=== PATIENT | female | born 1985 | race African-American/Black ===

== ENCOUNTER → 2018-04-05 18:49 | Outpatient (CLI) | payer OTHER, MEDICAID, SELFPAY ==
--- NOTE | 2018-04-05 18:56 | DI.RAD.S_ITS ---
PROCEDURE: XR KNEE RT 3V INDICATIONS: 32 year-old female with right knee pain. TECHNIQUE: 3 views of the knee were acquired. COMPARISON: [facility], , KNEE 3V RIGHT, 11/07/2015, 20:50. FINDINGS: Bones: No fractures or dislocations. There is mild medial knee joint degenerative narrowing as before. No suspicious bony lesions. Soft tissues: There is large joint effusion. 2.3 cm irregular posterior intra-articular body again noted. IMPRESSION: 1. New large right knee joint effusion may indicate soft tissue injury in the appropriate clinical setting. 2. Mild medial knee joint degeneration as before, as well as 2.3 cm posterior calcified intra-articular body. Dictated by: Josemanuel Martin M.D. on 04/06/2018 at 7:41 Approved by: Josemanuel Martin M.D. on 04/06/2018 at 7:43
== END ==
PROVIDERS: Visit Provider Physician Assistant
DX: M25.461 Effusion, right knee (principal); M17.11 Unilateral primary osteoarthritis, right knee; M25.561 Pain in right knee
CPT/HCPCS: 73562

== ENCOUNTER 2018-08-19 02:32 | Emergency (ER) | payer OTHER, MEDICAID, SELFPAY ==
[2018-08-19 02:44] VITALS: BP 122/82; PULSE 86; RESP 18; TEMP 36.9; O2SAT 99; BMI 56.9
--- NOTE | 2018-08-19 02:51 | PC.NURSE ---
She told admitting her l foot was numb,in room she denied numbness in her feet now.She has strong bilateral pedal pulses.
[2018-08-19] MEDS: TRAMADOL 50 MG TABLET 100 MG PO (03:02)
[2018-08-19] MEDS: CYCLOBENZAPRINE 10 MG TABLET PO (03:06)
--- NOTE | 2018-08-19 03:24 | ED_ITS ---
HPI - Back Pain/Injury General Chief Complaint: Back Pain/Injury Stated Complaint: back pain, left foot no feeling Time Seen by Provider: 08/19/18 02:42 Source: patient Mode of arrival: wheelchair Limitations: no limitations History of Present Illness HPI Narrative: Patient is a obese 32-year-old female who presents with back pain. She denies any injury. States that the she was cleaning up before going to bed woke up with back pain. She did take a 1000 mg of naproxen prior to going to bed who is she also had some numbness tingling down her right foot but is now resolved. She is ambulatory but it is painful. She has no changes in her bowel or bladder habits. She denies any really should the pain around to her abdomen or weakness. Onset (ago): hour(s) Duration: constant Location: lumbar spine Severity: severe Quality: burning Radiation: none Treatments prior to arrival: NSAIDS Related Data Home Medications Medication Instructions Recorded Confirmed naproxen sodium 440 mg PO PRN PRN #0 12/27/17 06/17/18 Previous Rx's Medication Instructions Recorded ibuprofen 800 mg tablet 800 mg PO TID #20 tab 06/03/18 cyclobenzaprine 5 mg PO TID PRN #10 tab 08/19/18 ibuprofen 800 mg PO Q8H PRN #20 tab 08/19/18 tramadol 50 mg PO Q6H PRN #14 tab 08/19/18 Allergies Allergy/AdvReac Type Severity Reaction Status Date / Time codeine [CODEINE] Allergy Unknown Verified 06/17/18 16:14 latex [LATEX] Allergy Unknown Verified 06/17/18 16:14 Review of Systems Review of Systems GENERAL: Denies chills,fever HEENT: Denies throat pain RESPIRATORY: Denies dyspnea, cough, wheezing CARDIOVASCULAR: Denies chest pain, palpitations GASTROINTESTINAL: Denies nausea, vomiting MUSCULOSKELETAL: See HPI SKIN: No rash, no laceration, no pruritus NEUROLOGIC: Denies weakness, dizziness, headache, numbness 8 point review of systems is negative except for those stated above and HPI PFSH Social History Smoking Status: Never smoker Exam Initial Vital Signs Initial Vital Signs: Vital Signs Temperature 98.5 F 08/19/18 02:44 Pulse Rate 86 08/19/18 02:44 Respiratory Rate 18 08/19/18 02:44 Blood Pressure 122/82 08/19/18 02:44 Pulse Oximetry 99 08/19/18 02:44 Const General: cooperative and in distress (In pain) Nutritional Appearance: obese Orientation: alert, awake and oriented x3 Eyes General: appearance normal, both eyes and all related structures Chest Chest: normal inspection of the chest Resp Effort & Inspection: normal respiratory effort and able to speak in complete sentences Cardio Rhythm: regular rhythm Heart Sounds: S1 normal and S2 normal Back/Spine/Pelvis Thoracic/Lumbar Spine: thoracic and lumbar spine normal to inspection and pain with thoraco-lumbar ROM Neuro General: awake and oriented x3 Speech: speech normal Motor: muscle tone normal throughout Sensory Exam: no sensory deficits noted Extrem General: normal to inspection and full ROM Course Orders Ordered: Discontinued Medications Cyclobenzaprine HCl (Flexeril) 5 mg PO NOW ONE Stop: 08/19/18 02:59 Last Admin: 08/19/18 03:06 Dose: Cyclobenzaprine HCl (Flexeril) 10 mg PO NOW ONE Stop: 08/19/18 03:06 Last Admin: 08/19/18 03:06 Dose: 10 mg Cyclobenzaprine HCl (Flexeril 10 Mg Prepack) 1 bottle MISC SEEINSTR ONE Stop: 08/19/18 03:41 Last Admin: 08/19/18 03:41 Dose: 1 bottle Tramadol HCl (Ultram) 100 mg PO NOW ONE Stop: 08/19/18 02:59 Last Admin: 08/19/18 03:02 Dose: 100 mg Tramadol HCl (Ultram 50mg Prepack) 1 bottle MISC SEEINSTR ONE Stop: 08/19/18 03:41 Last Admin: 08/19/18 03:41 Dose: 1 bottle Vital Signs - 8 hr 08/19/18 02:44 08/19/18 03:49 Temperature 98.5 F Pulse Rate 86 80 Respiratory Rate 18 16 Blood Pressure 122/82 125/79 Pulse Oximetry 99 98 Discharge Plan Departure Patient Disposition: Home Clinical Impression: Strain of lumbar region Discharge Date/Time: 08/19/18 03:50 Interventions: ED Discharge Assessment Last Done: 08/19/18 03:49 Instructions: DI for Back Spasm, DI for Back Strain or Sprain Activity Restrictions/Additional Instructions: *You have been diagnosed with acute back strain *What to do: Increase activity as tolerated, light activity is encouraged *Continue to take medications as directed: Faxed to [facility] in [place] Motrin 600-800 mg every 6-8 hours as needed for pain Tramadol 1-2 tablets every 6 hr if needed for severe pain Flexeril 1 tablet every 8 hr if needed for muscle spasm *Follow up with your primary care provider in 2-3 days *Return to ER if you should have numbness tingling, weakness in lower extremities loss of urine or stool, or any new, worsening or concerning symptoms Prescriptions: New ibuprofen 800 mg tablet 800 mg PO Q8H PRN (Reason: pain) Qty: 20 RF: 0 tramadol 50 mg tablet 50 mg PO Q6H PRN (Reason: pain) Qty: 14 RF: 0 cyclobenzaprine 5 mg tablet 5 mg PO TID PRN (Reason: muscle spasm) Qty: 10 RF: 0 No Action naproxen sodium 220 MG tablet 440 mg PO PRN PRN (Reason: Pain, Moderate) Qty: 0 RF: 0 ibuprofen 800 mg tablet 800 mg PO TID Qty: 20 RF: 0 Referrals: [facility] [Provider Group] [facility] [Provider Group] [facility] [Outside] Stand Alone Forms: Work/School Restrictions
[2018-08-19] MEDS: CYCLOBENZAPRINE 10 MG PREPACK 1 BOTTLE MISC (03:41)
[2018-08-19] MEDS: TRAMADOL 50 MG PREPACK 1 BOTTLE MISC (03:41)
[2018-08-19 03:49] VITALS: BP 125/79; PULSE 80; RESP 16; O2SAT 98
== END 2018-08-19 03:50 | disposition home or self-care (01) ==
PROVIDERS: Emergency Provider Emergency Medicine
DX: S39.012A Strain of muscle, fascia and tendon of lower back, initial encounter (principal)
CPT/HCPCS: 99282; 99283

== ENCOUNTER → 2018-10-27 20:21 | Outpatient (CLI) | payer OTHER, MEDICAID, SELFPAY | PROVIDERS: Visit Provider Physician Assistant | DX: J02.9 Acute pharyngitis, unspecified (principal) | CPT/HCPCS: 87070 ==

== ENCOUNTER 2019-02-22 09:00 | Emergency (ER) | payer OTHER, MEDICAID, SELFPAY ==
[2019-02-22 09:08] VITALS: BP 153/98; PULSE 86; RESP 18; TEMP 37.1; O2SAT 98; BMI 56.9
--- NOTE | 2019-02-22 09:23 | ED.ALLEREA ---
HPI - Allergic Reaction General Chief complaint: Allergic Reaction Stated complaint: ALLERGIC REACTION Time Seen by Provider: 02/22/19 09:23 Source: patient Mode of arrival: ambulatory Limitations: no limitations History of Present Illness HPI narrative: The patient is a 33-year-old female who presents with possible allergic reaction. She states she was eating hominis yesterday which she eats all the time. She then started noticing that her voice was going away. She is itching all over but no hives. She does have seasonal allergies he was taking some wxyl-yix-dpprlna allergy medicine but is no longer taking. She has no trouble swallowing her secretions. She has no fever she feels like her face and arms are swollen. No erythema MD complaint: allergic reaction and facial swelling Symptoms: itching and facial swelling (Per patient not appreciated by me) Related Data Allergies Allergy/AdvReac Type Severity Reaction Status Date / Time codeine [CODEINE] Allergy Severe Nausea/ Verified 02/22/19 09:08 vomiting latex [LATEX] Allergy Mild Rash Verified 02/22/19 09:08 Review of Systems Review of Systems ROS Unobtainable: All systems reviewed & are unremarkable except as noted in HPI and below Constitutional Denies chills, Denies fever(s), Denies lethargy and Denies weakness Eyes Reports itchy eyes ENT Ears, Nose, Mouth, and Throat: Reports change in voice, Denies neck pain and Denies sore throat Cardiovascular Denies chest pain, Denies irregular heart rhythm, Denies lightheadedness, Denies palpitations, Denies dyspnea, Denies dyspnea on exertion and Denies orthopnea Respiratory Denies cough, Denies dyspnea, Denies dyspnea on exertion and Denies wheezing Gastrointestinal Gastrointestinal: Denies abdominal pain, Denies change in bowel habits, Denies diarrhea, Denies nausea and Denies vomiting Musculoskeletal Denies neck pain Integumentary/Breasts Denies pruritus, Denies erythema, Denies rash and Denies wounds Neurologic Denies weakness Endocrine Denies palpitations Allergic/Immunologic Reports itchy eyes and Denies wheezing [facility] Medical History Right knee pain (Chronic) Eczema (Chronic Unknown) Atrial fibrillation (Chronic ~2000) Tendonitis (Resolved 03/2017) Surgical History Cyst (Resolved 03/2017) Family History Brother Afib Father Age: 69 Afib Social History Smoking Status: Never smoker Family History Brother Afib Father Age: 69 Afib Social History Smoking Status: Never smoker Exam Initial Vital Signs Initial Vital Signs: Vital Signs Temperature 98.7 F 02/22/19 09:08 Pulse Rate 86 02/22/19 09:08 Respiratory Rate 18 02/22/19 09:08 Blood Pressure 153/98 H 02/22/19 09:08 Pulse Oximetry 98 02/22/19 09:08 GENERAL: Overweight female alert no acute distress HEENT: Head atraumatic,EOMI, pupils reactive CARDIOVASCULAR: Regular rate and rhythm without murmurs, rubs or gallops. RESPIRATORY: Breath sounds equal bilaterally, no wheezes rales or rhonchi. ABDOMEN: Soft, nontender. Normoactive bowel sounds all 4 quadrants. No guarding or rebound. EXTREMITIES: Normal range of motion, no clubbing or edema. Neurovascularly intact NEUROLOGICAL: Alert and oriented x4.Normal gait and speech. Cranial nerves II through XII grossly intact. SKIN: Warm, dry, no laceration, no petechiae, no rashes or lesions. no urticaria, no hives no rash Course Orders Ordered: Discontinued Medications Prednisone (Deltasone) 40 mg PO NOW ONE Stop: 02/22/19 09:35 Last Admin: 02/22/19 09:36 Dose: 40 mg Vital Signs - 8 hr 02/22/19 09:08 02/22/19 10:28 Temperature 98.7 F Pulse Rate 86 64 Respiratory Rate 18 18 Blood Pressure 153/98 H Blood Pressure [Left Arm] 146/97 H Pulse Oximetry 98 100 MDM - Allergic Reaction MDM Narrative Medical decision making narrative: Patient has no signs of anaphylaxis. Really no rash. I this is seasonal allergies. She is managing her own secretions no stridor may be some possible laryngitis. But really appears in no respiratory distress. she is given 1 dose of prednisone and recommend she take qzyl-obt-ihwdkvq allergy medication daily and Benadryl as needed. Discharge Plan Departure Patient Disposition: Home Clinical Impression: Seasonal allergic reaction Discharge Date/Time: 02/22/19 10:29 Interventions: ED Discharge Assessment Last Done: 02/22/19 10:29 Instructions: DI for General Allergic Reactions Activity Restrictions/Additional Instructions: *You have been diagnosed with seasonal allergic reaction *What to do: At this time no sign of severe reaction . At this time I do not think you need antibiotics *Continue to take medications as directed Lofr-tld-gznqclf allergy medicine once daily or as prescribed Benadryl 25-50 mg every 6 hours if needed for severe itching *Follow up with your primary care provider in 2-3 days *Return to ER if you should have increased difficulty breathing or rash, facial swelling or any new, worsening or concerning symptoms Referrals: [facility] [Provider Group] [facility] [Provider Group] [facility] [Provider Group] Stand Alone Forms: Work Release Note
[2019-02-22] MEDS: predniSONE 20 MG TABLET 40 MG PO (09:36)
--- NOTE | 2019-02-22 09:45 | ED_ITS ---
HPI - Allergic Reaction General Chief complaint: Allergic Reaction Stated complaint: ALLERGIC REACTION Time Seen by Provider: 02/22/19 09:23 Source: patient Mode of arrival: ambulatory Limitations: no limitations History of Present Illness HPI narrative: The patient is a 33-year-old female who presents with possible allergic reaction. She states she was eating hominis yesterday which she eats all the time. She then started noticing that her voice was going away. She is itching all over but no hives. She does have seasonal allergies he was taking some zxhs-mjj-fsvrsoq allergy medicine but is no longer taking. She has no trouble swallowing her secretions. She has no fever she feels like her face and arms are swollen. No erythema MD complaint: allergic reaction and facial swelling Symptoms: itching and facial swelling (Per patient not appreciated by me) Related Data Allergies Allergy/AdvReac Type Severity Reaction Status Date / Time codeine [CODEINE] Allergy Severe Nausea/ Verified 02/22/19 09:08 vomiting latex [LATEX] Allergy Mild Rash Verified 02/22/19 09:08 Review of Systems Review of Systems ROS Unobtainable: All systems reviewed & are unremarkable except as noted in HPI and below Constitutional Denies chills, Denies fever(s), Denies lethargy and Denies weakness Eyes Reports itchy eyes ENT Ears, Nose, Mouth, and Throat: Reports change in voice, Denies neck pain and Denies sore throat Cardiovascular Denies chest pain, Denies irregular heart rhythm, Denies lightheadedness, Denies palpitations, Denies dyspnea, Denies dyspnea on exertion and Denies orthopnea Respiratory Denies cough, Denies dyspnea, Denies dyspnea on exertion and Denies wheezing Gastrointestinal Gastrointestinal: Denies abdominal pain, Denies change in bowel habits, Denies diarrhea, Denies nausea and Denies vomiting Musculoskeletal Denies neck pain Integumentary/Breasts Denies pruritus, Denies erythema, Denies rash and Denies wounds Neurologic Denies weakness Endocrine Denies palpitations Allergic/Immunologic Reports itchy eyes and Denies wheezing [facility] Medical History Right knee pain (Chronic) Eczema (Chronic Unknown) Atrial fibrillation (Chronic ~2000) Tendonitis (Resolved 03/2017) Surgical History Cyst (Resolved 03/2017) Family History Brother Afib Father Age: 69 Afib Social History Smoking Status: Never smoker Family History Brother Afib Father Age: 69 Afib Social History Smoking Status: Never smoker Exam Initial Vital Signs Initial Vital Signs: Vital Signs Temperature 98.7 F 02/22/19 09:08 Pulse Rate 86 02/22/19 09:08 Respiratory Rate 18 02/22/19 09:08 Blood Pressure 153/98 H 02/22/19 09:08 Pulse Oximetry 98 02/22/19 09:08 GENERAL: Overweight female alert no acute distress HEENT: Head atraumatic,EOMI, pupils reactive CARDIOVASCULAR: Regular rate and rhythm without murmurs, rubs or gallops. RESPIRATORY: Breath sounds equal bilaterally, no wheezes rales or rhonchi. ABDOMEN: Soft, nontender. Normoactive bowel sounds all 4 quadrants. No guarding or rebound. EXTREMITIES: Normal range of motion, no clubbing or edema. Neurovascularly intact NEUROLOGICAL: Alert and oriented x4.Normal gait and speech. Cranial nerves II through XII grossly intact. SKIN: Warm, dry, no laceration, no petechiae, no rashes or lesions. no urticaria, no hives no rash Course Orders Ordered: Discontinued Medications Prednisone (Deltasone) 40 mg PO NOW ONE Stop: 02/22/19 09:35 Last Admin: 02/22/19 09:36 Dose: 40 mg Vital Signs - 8 hr 02/22/19 09:08 02/22/19 10:28 Temperature 98.7 F Pulse Rate 86 64 Respiratory Rate 18 18 Blood Pressure 153/98 H Blood Pressure [Left Arm] 146/97 H Pulse Oximetry 98 100 MDM - Allergic Reaction MDM Narrative Medical decision making narrative: Patient has no signs of anaphylaxis. Really no rash. I this is seasonal allergies. She is managing her own secretions no stridor may be some possible laryngitis. But really appears in no respiratory distress. she is given 1 dose of prednisone and recommend she take ywap-vih-hwnvlkb allergy medication daily and Benadryl as needed. Discharge Plan Departure Patient Disposition: Home Clinical Impression: Seasonal allergic reaction Discharge Date/Time: 02/22/19 10:29 Interventions: ED Discharge Assessment Last Done: 02/22/19 10:29 Instructions: DI for General Allergic Reactions Activity Restrictions/Additional Instructions: *You have been diagnosed with seasonal allergic reaction *What to do: At this time no sign of severe reaction . At this time I do not think you need antibiotics *Continue to take medications as directed Rmhv-mjv-qggnlgi allergy medicine once daily or as prescribed Benadryl 25-50 mg every 6 hours if needed for severe itching *Follow up with your primary care provider in 2-3 days *Return to ER if you should have increased difficulty breathing or rash, facial swelling or any new, worsening or concerning symptoms Referrals: [facility] [Provider Group] [facility] [Provider Group] [facility] [Provider Group] Stand Alone Forms: Work Release Note
[2019-02-22 10:28] VITALS: BP 146/97; PULSE 64; RESP 18; O2SAT 100
== END 2019-02-22 10:29 | disposition home or self-care (01) ==
PROVIDERS: Emergency Provider Emergency Medicine
DX: J30.2 Other seasonal allergic rhinitis (principal)
CPT/HCPCS: 99282; 99283

== ENCOUNTER 2019-05-29 16:14 | Emergency (ER) | payer OTHER, MEDICAID, SELFPAY ==
[2019-05-29 16:25] VITALS: BP 139/95; PULSE 79; RESP 16; TEMP 36.6; O2SAT 98
--- NOTE | 2019-05-29 16:52 | ED_ITS ---
HPI - Dizziness General Chief Complaint: Syncope Stated Complaint: Passed out last night, low blodd sugar, strep thro Time Seen by Provider: 05/29/19 16:38 Source: patient Mode of arrival: ambulatory Limitations: no limitations History of Present Illness HPI Narrative: 33-year-old female nonsmoker with history of AFib presents with a chief complaint of a near syncopal episode last night. Patient is a nonsmoker and denies any vomiting or diarrhea. She started the youssef toe diet about 3 weeks ago and thinks she has strep pharyngitis as evidence by difficulty swallowing for the past few days. She states that she has been on this diet had trouble eating and drinking and works out heavily each night. After her workup last night she felt dizzy and lightheaded and had this near syncopal episode. She denies any fever chills and is largely at her baseline now MD complaint: dizziness, lightheadedness and near syncope Onset (ago): day(s) Timing: gradual onset Description: lightheadedness and near-syncope History of similar episodes: No History of trauma: No Severity: mild Relieving factors: nothing Related Data Home Medications Medication Instructions Recorded Confirmed ibuprofen 1 dose PO PRN PRN 05/29/19 05/29/19 Previous Rx's Medication Instructions Recorded albuterol sulfate HFA 90 1 inh INHALATION Q4-6H PRN #18 gram 03/15/19 mcg/actuation aerosol inhaler amoxicillin-pot clavulanate 1 tab PO BID #20 tab 05/29/19 [Augmentin] ibuprofen 600 mg PO TID-QID PRN #20 tab 05/29/19 Allergies Allergy/AdvReac Type Severity Reaction Status Date / Time codeine [CODEINE] Allergy Severe Nausea/ Verified 05/29/19 16:28 vomiting latex [LATEX] Allergy Mild Rash Verified 05/29/19 16:28 narcotics AdvReac Severe Vomiting Uncoded 05/29/19 17:00 Review of Systems Constitutional Denies chills, Denies fever(s), Denies lethargy and Denies weakness Eyes Denies change in vision, Denies eye discharge, Denies irritation and Denies loss of vision ENT Ears, Nose, Mouth, and Throat: Denies change in voice, Denies neck pain and Denies sore throat Cardiovascular Denies chest pain, Reports syncope, Denies irregular heart rhythm, Denies lightheadedness, Denies palpitations, Denies dyspnea, Denies dyspnea on exertion and Denies orthopnea Respiratory Denies cough, Denies dyspnea, Denies dyspnea on exertion and Denies wheezing Gastrointestinal Gastrointestinal: Denies abdominal pain, Denies change in bowel habits, Denies diarrhea, Denies nausea and Denies vomiting Genitourinary Denies hematuria, Denies flank pain, Denies urinary incontinence and Denies urinary urgency Musculoskeletal Denies neck pain Integumentary/Breasts Denies pruritus, Denies erythema, Denies rash and Denies wounds Neurologic Denies confusion, Reports syncope, Denies loss of vision and Denies weakness Psychiatric Denies anxiety, Denies confusion, Denies depression, Denies homicidal ideation and Denies suicidal ideation Endocrine Denies palpitations Hematologic/Lymphatic Denies easy bruising Allergic/Immunologic Denies wheezing [facility] Medical History Right knee pain (Chronic) Eczema (Chronic Unknown) Atrial fibrillation (Chronic ~2000) Tendonitis (Resolved 03/2017) Surgical History Cyst (Resolved 03/2017) Family History Brother Afib Father Age: 69 Afib Social History Smoking Status: Never smoker Family History Brother Afib Father Age: 69 Afib Social History Smoking Status: Never smoker Exam Narrative Exam Narrative: GENERAL: 33-year-old female is anxious but in no obvious or significant distress HEAD: Atraumatic. Normocephalic. No temporal or scalp tenderness. EYES: Pupils equal round and reactive. Extraocular motions intact. No scleral icterus. No injection or drainage. ENT: Nose without bleeding, purulent drainage or septal hematoma. Posterior pharynx and tonsils are erythematous and some exudate on the left tonsil NECK: Trachea midline. Left anterior lymphadenopathy. Supple, nontender, no meningeal signs. CARDIOVASCULAR: Regular rate and rhythm without murmurs, gallops, or rubs. RESPIRATORY: Clear to auscultation. Breath sounds equal bilaterally. No wheezes, rales, or rhonchi. GASTROINTESTINAL: Abdomen soft, non-tender, nondistended. No hepato- splenomegaly, or palpable masses. No guarding. EXTREMITIES: No clubbing, cyanosis, or edema. No joint tenderness, effusion, or edema noted. BACK: Nontender without deformity or crepitance. No flank tenderness. NEURO: AOx3. SKIN: No rash or erythema. Initial Vital Signs Initial Vital Signs: Vital Signs Temperature 97.9 F 05/29/19 16:25 Pulse Rate 79 05/29/19 16:25 Respiratory Rate 16 05/29/19 16:25 Blood Pressure 139/95 H 05/29/19 16:25 Pulse Oximetry 98 05/29/19 16:25 Course Orders Ordered: Discontinued Medications Sodium Chloride (Normal Saline 0.9%) 1,000 mls @ 1,000 mls/hr IV BOLUS ONE Stop: 05/29/19 17:49 Last Infusion: 05/29/19 18:01 Dose: 0 mls/hr Admin: 05/29/19 16:58 Dose: 1,000 mls/hr Reevaluation(s) Reevaluation #1: Patient feels much better after the above-stated therapies Vital Signs - 8 hr 05/29/19 16:25 Temperature 97.9 F Pulse Rate 79 Respiratory Rate 16 Blood Pressure 139/95 H Pulse Oximetry 98 MDM - Dizziness Lab Data Result diagrams: 05/29/19 16:50 05/29/19 16:50 Lab Results 05/29/19 05/29/19 Range/Units 16:50 16:50 WBC 4.1 L (4.5-11.0) X10^3/uL RBC 5.06 (4.0-5.2) X10^6/uL Hgb 13.7 (12.0-16.0) g/dL Hct 41.6 (36-46) % MCV 82.3 (80-100) fL MCH 27.1 (26-34) PG MCHC 32.9 (30-36) % RDW 15.3 H (11.6-14.8) % Plt Count 174 (150-400) X10^3/uL Neut % (Auto) 61.7 (50-75) % Lymph % (Auto) 29.6 (25-40) % Harmon % (Auto) 7.0 (3-14) % Eos % (Auto) 0.9 L (2-4) % Baso % (Auto) 0.8 (0-2) % Neut # (Auto) 2600 (5084-2709) /uL Lymph # (Auto) 1200 (2412-3118) /uL Harmon # (Auto) 300 (0-900) /uL Eos # (Auto) 0 (0-450) /uL Baso # (Auto) 0 (0-100) /uL Sodium 139 (137-145) mmol/L Potassium 4.0 (3.4-5.1) mmol/L Chloride 105 (98-107) mmol/L Carbon Dioxide 25 (22-32) mmol/L BUN 10 (7-17) mg/dL Creatinine 0.80 (0.52-1.04) mg/dL Estimated GFR > 60.0 (>60) mL/min BUN/Creatinine Ratio 12.5 (6-22) Glucose 89 (70-100) mg/dL Calcium 9.2 (8.4-10.2) mg/dL MDM Narrative Medical decision making narrative: Patient with near syncope after diet change, heavy exertional workouts, and a sore throat improves tremendously with fluids. She has sore throat for 4 days, exudate on her left tonsil, subjective fever no cough and anterior lymphadenopathy without high likelihood of strep. Our strep she did not work though we attempted it. Given high likelihood of strep patient was treated despite no confirmatory test. Patient had return precautions given and questions answered to her apparent satisfaction Discharge Plan Departure Patient Disposition: Home Clinical Impression: Acute dehydration, Near syncope, Acute streptococcal pharyngitis Discharge Date/Time: 05/29/19 18:23 Interventions: ED Discharge Assessment Last Done: 05/29/19 18:23 Activity Restrictions/Additional Instructions: 1. Drink plenty of fluids with frequent small sips. 2. For the next 24 hours a clear liquid diet is advised. After that please employ a brat diet which would include bananas, rice, apples, toast. 3. Please take medications as directed. 4. Please follow-up with your doctor in the next 1-2 days. Call the office for an appointment. 5. Please return to the emergency Department for any worsening or persistent symptoms, such as increasing pain or fever. Prescriptions: New ibuprofen 600 mg tablet 600 mg PO TID-QID PRN (Reason: pain) Qty: 20 RF: 0 amoxicillin-pot clavulanate [Augmentin] 875-125 mg tablet 1 tab PO BID Qty: 20 RF: 0 No Action albuterol sulfate 90 mcg/actuation HFA aerosol inhaler 1 inh INHALATION Q4-6H PRN (Reason: shortness of breath) Qty: 18 RF: 0 ibuprofen 200 mg Tablet 1 dose PO PRN PRN (Reason: pain) RF: 0
[2019-05-29] MEDS: SODIUM CHLORIDE 0.9% 1,000 ML 1000 ML IV (16:58)
[2019-05-29 17:01] LABS: Add Manual Diff / Slide Review NO; Basophils Absolute Auto 0 /uL (0-100); Basophils Percent Auto 0.8 % (0-2); Eosinophils Absolute Auto 0 /uL (0-450); Eosinophils Percent Auto 0.9 % (2-4); Hematocrit 41.6 % (36-46); Hemoglobin 13.7 g/dL (12.0-16.0); Lymphocytes Absolute Auto 1200 /uL (1100-4500); Lymphocytes Percent Auto 29.6 % (25-40); Mean Corpuscular HGB Conc 32.9 % (30-36); Mean Corpuscular Hemoglobin 27.1 PG (26-34); Mean Corpuscular Volume 82.3 fL (80-100); Monocytes Absolute Auto 300 /uL (0-900); Neutrophils Absolute Auto 2600 /uL (1500-7000); Neutrophils Percent Auto 61.7 % (50-75); Platelet Count 174 X10^3/uL (150-400); Red Blood Cell Count 5.06 X10^6/uL (4.0-5.2); Red Cell Distribution Width 15.3 % (11.6-14.8); White Blood Cell Count 4.1 X10^3/uL (4.5-11.0)
[2019-05-29 17:12] LABS: BUN Creatinine Ratio 12.5 (6-22); Blood Urea Nitrogen 10 mg/dL (7-17); Calcium 9.2 mg/dL (8.4-10.2); Carbon Dioxide 25 mmol/L (22-32); Chloride 105 mmol/L (98-107); Estimated Glomerular Filt Rate > 60.0 mL/min (>60); Glucose 89 mg/dL (70-100); HEMOLYSIS < 15 (0-50); Sodium 139 mmol/L (137-145)
[2019-05-29 17:59] VITALS: BP 115/72; PULSE 61; RESP 18; O2SAT 99
[2019-05-29 18:00] VITALS: BP 110/55; PULSE 63; RESP 17; O2SAT 100
== END 2019-05-29 18:23 | disposition home or self-care (01) ==
PROVIDERS: Emergency Provider Emergency Medicine
DX: E86.0 Dehydration (principal); R55 Syncope and collapse; J02.0 Streptococcal pharyngitis
CPT/HCPCS: 36591; 80048; 85025; 93005; 96360; 99283

== ENCOUNTER 2019-08-10 17:19 | Emergency (ER) | payer OTHER, MEDICAID, SELFPAY ==
[2019-08-10 17:25] VITALS: BP 119/87; PULSE 76; RESP 15; TEMP 36.1; O2SAT 98; BMI 56.5
--- NOTE | 2019-08-10 17:28 | DI.RAD.S_ITS ---
PROCEDURE: XR FOOT RT MIN 3V INDICATIONS: right foot pain TECHNIQUE: 3 views of the foot were acquired. COMPARISON: None. FINDINGS: Bones: No fractures or dislocations. No suspicious bony lesions. Moderate-sized plantar calcaneal spur. Soft tissues: No tibiotalar joint effusion. Achilles tendon appears normal. IMPRESSION: Intact right foot. Dictated by: Debbie Huitron M.D. on 08/10/2019 at 18:43 Approved by: Debbie Huitron M.D. on 08/10/2019 at 18:44
--- NOTE | 2019-08-10 17:56 | ED.LOWEXIN ---
HPI - Extremity Injury (Lower) <Kelle Hamilton PA-C - Last Filed: 08/10/19 19:29> General Chief Complaint: Extremity Injury, Lower Stated Complaint: RIGHT FOOT PAIN Time Seen by Provider: 08/10/19 17:32 Source: patient Mode of arrival: Ambulatory Limitations: no limitations History of Present Illness HPI Narrative: This 33-year-old female complains of 2 month history of intermittent right foot pain. She indicates the pain is in the medial foot. She states that she does not know of any specific trauma, however she thinks her 80 lb dog may have stepped on the foot prior to pain starting. 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 No new exercise, no bites or wounds. She has not had any fever. She states that she notices some intermittent swelling. No redness in the foot. She does not have any history of gout. She states she had to leave work today for the 2nd time due to the pain and it is difficult to get into her PCP during work hours so she came into the ED. Related Data Previous Rx's Medication Instructions Recorded albuterol sulfate 90 mcg/actuation 1 inh INHALATION Q4-6H PRN #18 gram 03/15/19 aerosol inhaler meloxicam [Mobic] 15 mg PO DAILY #20 tab 08/10/19 Allergies Allergy/AdvReac Type Severity Reaction Status Date / Time codeine [CODEINE] Allergy Severe Nausea/ Verified 08/10/19 17:25 vomiting latex [LATEX] Allergy Mild Rash Verified 08/10/19 17:25 narcotics AdvReac Severe Vomiting Uncoded 07/07/19 13:30 Review of Systems <Kelle Hamilton PA-C - Last Filed: 08/10/19 19:29> Review of Systems ROS Unobtainable: All systems reviewed & are unremarkable except as noted in HPI and below PFSH <Kelle Hamilton PA-C - Last Filed: 08/10/19 19:29> Medical History Atrial fibrillation (Chronic ~2000) Eczema (Chronic Unknown) Right knee pain (Chronic) Tendonitis (Resolved 03/2017) Surgical History Cyst (Resolved 03/2017) Family History Brother Afib Father Age: 69 Afib Social History Smoking Status: Never smoker second hand exposure: No alcohol intake: current (wine, once a month) substance use type: does not use Social History Smoking Status: Never smoker second hand exposure: No alcohol intake: current (wine, once a month) substance use type: does not use Exam <Kelle Hamilton PA-C - Last Filed: 08/10/19 19:29> Narrative Exam Narrative: GENERAL APPEARANCE: Patient sitting comfortably, in no distress. LUNGS: Clear to auscultation bilaterally. HEART: Rate and rhythm regular without murmur, normal S1 and S2, no S3 or S4. EXTREMITIES: No cyanosis, no edema, pedal pulses intact, no calf tenderness MUSCULOSKELETAL: Visible joint effusion. Right ankle no tenderness to palpation, normal range of motion. Tender throughout the 1st metatarsal, most proximal to mid, more on the anterior surface. No tenderness elsewhere over the right foot. NEUROLOGIC: Patient is alert and oriented, sensation grossly intact over the foot Initial Vital Signs Initial Vital Signs: Vital Signs Temperature 96.9 F L 08/10/19 17:25 Pulse Rate 76 08/10/19 17:25 Respiratory Rate 15 08/10/19 17:25 Blood Pressure 119/87 08/10/19 17:25 Pulse Oximetry 98 08/10/19 17:25 <Jack Lopez DO - Last Filed: 08/11/19 07:02> Initial Vital Signs Initial Vital Signs: Vital Signs Temperature 96.9 F L 08/10/19 17:25 Pulse Rate 76 08/10/19 17:25 Respiratory Rate 15 08/10/19 17:25 Blood Pressure 119/87 08/10/19 17:25 Pulse Oximetry 98 08/10/19 17:25 Course <Kelle Hamilton PA-C - Last Filed: 08/10/19 19:29> Orders Ordered: ED Orders 08/10/19 17:28 XR foot RT min 3V Stat Vital Signs Vital signs: Vital Signs - 8 hr 08/10/19 17:25 Temperature 96.9 F L Pulse Rate 76 Respiratory Rate 15 Blood Pressure 119/87 Pulse Oximetry 98 <Jack Lopez, DO - Last Filed: 08/11/19 07:02> Orders Ordered: ED Orders 08/10/19 17:28 XR foot RT min 3V Stat Vital Signs Vital signs: Vital Signs - 8 hr 08/10/19 17:25 Temperature 96.9 F L Pulse Rate 76 Respiratory Rate 15 Blood Pressure 119/87 Pulse Oximetry 98 Discharge Plan Departure Patient Disposition: Home Clinical Impression: Pain in metatarsus of right foot Discharge Date/Time: 08/10/19 19:07 Instructions: DI for Foot Pain Activity Restrictions/Additional Instructions: The source of the pain in your x-ray did not show any acute problem such as a broken bone. The pain is likely due to soft tissue inflammation. Please start the once daily anti-inflammatory pain medicine meloxicam. 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 Wear a comfortable, supportive shoe and elevate your foot when possible. Please schedule an appointment with Podiatry (Dr. Valdovinos or Dr. Levine). Please note that you may need to see your PCP to get a referral depending on her insurance. Prescriptions: New meloxicam [Mobic] 15 mg tablet 15 mg PO DAILY Qty: 20 RF: 0 Discontinued ibuprofen 600 mg tablet 600 mg PO TID-QID PRN (Reason: pain) Qty: 20 RF: 0 No Action albuterol sulfate 90 mcg/actuation HFA aerosol inhaler 1 inh INHALATION Q4-6H PRN (Reason: shortness of breath) Qty: 18 RF: 0 Referrals: [facility] [Provider Group] Kell Valdovinos DPM [Physician] - Stand Alone Forms: Work Release Note
== END 2019-08-10 19:07 | disposition home or self-care (01) ==
PROVIDERS: Emergency Provider Internal Medicine
DX: M89.8X7 Other specified disorders of bone, ankle and foot (principal)
CPT/HCPCS: 73630; 99282; 99283

== ENCOUNTER 2019-10-02 19:34 | Emergency (ER) | payer OTHER, MEDICAID, SELFPAY ==
[2019-10-02 19:42] VITALS: BP 144/88; PULSE 68; RESP 18; TEMP 36.1; O2SAT 98
--- NOTE | 2019-10-02 20:11 | ED_ITS ---
HPI - Extremity Injury (Lower) General Chief Complaint: Extremity Injury, Lower Stated Complaint: rt knee pain x2 Time Seen by Provider: 10/02/19 19:40 Source: patient Mode of arrival: Ambulatory Limitations: no limitations History of Present Illness HPI Narrative: 34-year-old female nonsmoker with history of asthma and morbid obesity presents with a chief complaint of ongoing right knee pain for the past 2 weeks at least. She states that she has had pain in this knee for quite some time medicine review worse over the past 2 weeks. He denies any new traumatic injury. She states is worse with motion and improves with rest. She denies numbness, tingling or weakness. She is otherwise well and free of complaint MD complaint: knee injury Onset (ago): week(s) Type of Injury: unknown Severity: moderate Exacerbating factors: weight bearing, movement and palpation Other symptoms: none Treatments prior to arrival: cold therapy and NSAIDS Related Data Previous Rx's Medication Instructions Recorded albuterol sulfate 90 mcg/actuation 1 inh INHALATION Q4-6H PRN #18 gram 03/15/19 aerosol inhaler meloxicam [Mobic] 15 mg PO DAILY #20 tab 08/10/19 ibuprofen 600 mg PO TID-QID PRN #20 tab 10/02/19 Allergies Allergy/AdvReac Type Severity Reaction Status Date / Time codeine [CODEINE] Allergy Severe Nausea/ Verified 08/10/19 17:25 vomiting latex [LATEX] Allergy Mild Rash Verified 08/10/19 17:25 narcotics AdvReac Severe Vomiting Uncoded 07/07/19 13:30 Review of Systems Constitutional Constitutional: Denies chills, Denies fatigue, Denies fever(s), Denies frequent falls, Denies lethargy and Denies weakness Eyes Eyes: Denies change in vision, Denies eye discharge, Denies irritation and Denies loss of vision ENT Ears, Nose, Mouth, and Throat: Denies change in voice, Denies dizziness, Denies neck pain, Denies sore throat and Denies throat swelling Cardiovascular Cardiovascular: Denies chest pain, Denies irregular heart rhythm, Denies lightheadedness, Denies palpitations, Denies dyspnea, Denies dyspnea on exertion and Denies orthopnea Respiratory Respiratory: Denies cough, Denies dyspnea, Denies dyspnea on exertion and Denies wheezing Gastrointestinal Gastrointestinal: Denies abdominal pain, Denies change in bowel habits, Denies diarrhea, Denies nausea and Denies vomiting Genitourinary Genitourinary: Denies hematuria, Denies flank pain, Denies urinary incontinence and Denies urinary urgency Musculoskeletal Musculoskeletal: Denies back pain, Denies muscle weakness, Denies neck pain, Denies numbness and Denies tingling Integumentary/Breasts Skin/Breast: Denies pruritus, Denies erythema, Denies rash and Denies wounds Neurologic Neurologic: Denies behavioral changes, Denies confusion, Denies dizziness, Denies frequent falls, Denies loss of vision, Denies numbness, Denies tingling and Denies weakness Psychiatric Psychiatric: Denies anxiety, Denies behavioral changes, Denies confusion, Denies depression, Denies homicidal ideation and Denies suicidal ideation Endocrine Endocrine: Denies fatigue, Denies flushing and Denies palpitations Hematologic/Lymphatic Hematologic/Lymphatic: Denies easy bruising Allergic/Immunologic Allergic/Immunologic: Denies urticaria, Denies throat swelling and Denies wheezing Patient History Medical History Atrial fibrillation (Chronic ~2000) Eczema (Chronic Unknown) Right knee pain (Chronic) Tendonitis (Resolved 03/2017) Surgical History Cyst (Resolved 03/2017) Family History Brother Afib Father Age: 69 Afib Social History Smoking Status: Never smoker second hand exposure: No alcohol intake: current (wine, once a month) substance use type: does not use alcohol intake frequency: holidays/special occasions only Substance Use Type: does not use Exam Narrative Exam Narrative: GEN: AOx3 and in mild distress EYES: Pupils are equal, round, and reactive to light and accommodation. Extraoccular muscles are intact bilaterally. There is no subconjunctival hemorrhage or exudate. CHEST: Lungs are clear to auscultation bilaterally and free of wheezes, rales, or rhonchi. Heart rate is regular rhythm, there are no murmurs, clicks, rubs, or gallops. There is no chest wall tenderness. ABD: Abdomen is soft and nontender. There is no guarding or rebound. Bowel sounds are normal in all 4 quadrants. There is no mass or organomegaly. EXT: Full but painful range of motion of the right knee, no obvious bony tenderness noted. No ligamentous laxity, effusion, erythema or warmth SKIN: Warm, pink, and dry. No erythema or rash Initial Vital Signs Initial Vital Signs: Vital Signs Temperature 97.0 F L 10/02/19 19:42 Pulse Rate 68 10/02/19 19:42 Respiratory Rate 18 10/02/19 19:42 Blood Pressure 144/88 H 10/02/19 19:42 Pulse Oximetry 98 10/02/19 19:42 Course Orders Ordered: ED Orders 10/02/19 20:23 XR knee RT 3V Stat Vital Signs Vital signs: Vital Signs - 8 hr 10/02/19 19:42 Temperature 97.0 F L Pulse Rate 68 Respiratory Rate 18 Blood Pressure 144/88 H Pulse Oximetry 98 MDM - Extremity Injury (Lower) Imaging Data Knee Xray: Radiologist's impression: [address] [address] XRay Report Signed Patient: Tevin Askew [facility]#: [id number] : 1985Acct:[id number] Age/Sex: 34 / FDate of Service: 10/02/19 Loc: ED Accession Number: [id number] Procedure: XR knee RT 3V Ordering Provider: Jack Lopez D.O. PROCEDURE: XR KNEE RT 3V INDICATIONS: pain in medial joint line TECHNIQUE: 3 views of the knee were acquired. COMPARISON: [facility], XR KNEE RT 3V, 04/05/2018, 18:47. [facility], KNEE 3V RIGHT, 11/07/2015, 20:50. FINDINGS: Bones: No fractures or dislocations. No suspicious bony lesions. There is moderate degenerative arthritic joint space narrowing at the medial compartment, and on the lateral view what appears to be several intra-articular loose bodies can be seen posterior to the femoral condyles Soft tissues: No joint effusion. No suspicious soft tissue calcifications. IMPRESSION: No trauma. Intra-articular loose bodies appear present dorsal to the distal femoral condyles on the lateral view of the knee. Medial compartment degenerative moderate knee joint osteoarthritis. Dictated by: Ariel Noe M.D. on 10/02/2019 at 20:51 Approved by: Ariel Noe M.D. on 10/02/2019 at 20:52 Discharge Plan Departure Patient Disposition: Home Clinical Impression: Acute pain of right knee Discharge Date/Time: 10/02/19 21:30 Instructions: DI for Knee Pain Activity Restrictions/Additional Instructions: *You have been diagnosed with [chronic right knee pain] *What to do: *Take medications as directed *Follow up with your primary care provider in 2-3 days, call for an appointment. Let them know you were seen in the Emergency Department and that we ask that you be seen in follow up *Return to ER if you should have any new, worsening or concerning symptoms Prescriptions: New ibuprofen 600 mg tablet 600 mg PO TID-QID PRN (Reason: pain) Qty: 20 RF: 0 No Action albuterol sulfate 90 mcg/actuation HFA aerosol inhaler 1 inh INHALATION Q4-6H PRN (Reason: shortness of breath) Qty: 18 RF: 0 meloxicam [Mobic] 15 mg tablet 15 mg PO DAILY Qty: 20 RF: 0 Referrals: [facility] [Outside] Kyra Mckay MD [Physician] -
--- NOTE | 2019-10-02 20:23 | DI.RAD.S_ITS ---
PROCEDURE: XR KNEE RT 3V INDICATIONS: pain in medial joint line TECHNIQUE: 3 views of the knee were acquired. COMPARISON: [facility], , XR KNEE RT 3V, 04/05/2018, 18:47. [facility], CR, KNEE 3V RIGHT, 11/07/2015, 20:50. FINDINGS: Bones: No fractures or dislocations. No suspicious bony lesions. There is moderate degenerative arthritic joint space narrowing at the medial compartment, and on the lateral view what appears to be several intra-articular loose bodies can be seen posterior to the femoral condyles Soft tissues: No joint effusion. No suspicious soft tissue calcifications. IMPRESSION: No trauma. Intra-articular loose bodies appear present dorsal to the distal femoral condyles on the lateral view of the knee. Medial compartment degenerative moderate knee joint osteoarthritis. Dictated by: Ariel Noe M.D. on 10/02/2019 at 20:51 Approved by: Ariel Noe M.D. on 10/02/2019 at 20:52
== END 2019-10-02 21:30 | disposition home or self-care (01) ==
PROVIDERS: Emergency Provider Emergency Medicine
DX: M25.561 Pain in right knee (principal)
CPT/HCPCS: 73562; 99282; 99283

== ENCOUNTER → 2021-01-21 11:20 | Outpatient (CLI) | payer OTHER, MEDICAID, SELFPAY ==
--- NOTE | 2021-01-21 11:23 | DI.RAD.S_ITS ---
PROCEDURE: XR LUMBAR SPINE 2-3V INDICATIONS: LBP TECHNIQUE: 2 views of the lumbar spine were acquired. COMPARISON: None. FINDINGS: Bones: 5 [id number] vertebrae are present. Trace dextrocurvature centered at the L3 level. No vertebral body compression fractures. No suspicious bony lesions. Soft tissues: Overlying bowel gas pattern is normal. No suspicious soft tissue calcifications. IMPRESSION: Trace dextrocurvature; otherwise normal L-spine. Dictated by: Kendell Mcneil [facility] Interpreted: Montrell Tavera MD on 01/21/2021 at 13:33 Approved by: Montrell Tavera M.D. on 01/21/2021 at 14:10
== END ==
PROVIDERS: PCP Internal Medicine; Referring Provider Physician Assistant Medical; Visit Provider Physician Assistant Medical
DX: M54.5 Low back pain (principal)
CPT/HCPCS: 72100

== ENCOUNTER 2022-05-14 18:18 | Emergency (ER) | payer OTHER, SELFPAY ==
--- NOTE | 2022-05-14 18:25 | DI.RAD.S_ITS ---
PROCEDURE: XR KNEE RT 3V INDICATIONS: fall, pain TECHNIQUE: 3 views of the knee were acquired. COMPARISON: [facility], , XR KNEE RT 3V, 10/02/2019, 20:21. FINDINGS: Bones: No fractures or dislocations. Tricompartmental degenerative changes with medial joint space narrowing and medial osteophytes. There are osteophytes of the patella. No suspicious bony lesions. Soft tissues: No joint effusion. No suspicious soft tissue calcifications. IMPRESSION: Tricompartmental degenerative changes consistent with osteoarthritis. No acute abnormality. Dictated by: Jackson Lopez M.D. on 05/14/2022 at 18:59 Approved by: Jackson Lopez M.D. on 05/14/2022 at 19:00
[2022-05-14 18:26] VITALS: BP 136/75; PULSE 92; RESP 16; TEMP 36.9; O2SAT 97; BMI 51.3
[2022-05-14] MEDS: ACETAMINOPHEN 325 MG TABLET 975 MG PO (18:37)
[2022-05-14] MEDS: KETOROLAC 10 MG TABLET PO (19:20)
--- NOTE | 2022-05-14 19:20 | ED_ITS ---
HPI - Extremity Injury (Lower) <Danitza Olmedo, [facility] - Last Filed: 05/14/22 20:05> General Chief Complaint: Extremity Injury, Lower Stated Complaint: fell at work, right leg pain Time Seen by Provider: 05/14/22 18:25 Source: patient Mode of arrival: Ambulatory History of Present Illness HPI Narrative: This is a 36-year-old female with history of obesity, osteoarthritis of her knees, who presents to the emergency department after a fall at work two days ago on 05/12/2022 and this is a self-insured L and I claim. Patient complains of pain in her upper leg and reports that it feels deep like it is a bone pain. She has been taking ibuprofen 800 mg every 8 hours with food and water, she states she has not taken any muscle relaxers for this but she states she has a home and denies any muscle spasms. Patient reports she is had some neuropathic pain down her right leg occasionally, denies any groin pain, weakness, sensation changes or other. Patient complains of deep and constant pain in her right upper leg since her fall, denies any bruising, redness, lumps or changes to the tissue. She complains of medial right knee pain and states that her knee popped when she fell. She reports that her knee pain is improved and now she has upper leg pain with bearing weight. She denies any hip pain with hip movement. Related Data Previous Rx's Medication Instructions Recorded albuterol sulfate 90 mcg/actuation 1 inh inhalation Q4-6H PRN 03/15/19 aerosol inhaler shortness of breath #18 grams meloxicam 15 mg tablet (Mobic) 15 mg PO DAILY foot pain #20 tabs 08/10/19 ibuprofen 600 mg tablet 600 mg PO TID-QID PRN pain #20 tabs 10/02/19 diclofenac sodium 1 % topical gel 4 g topical QID PRN knee pain #100 05/14/22 grams lidocaine 5 % topical patch 1 patch topical DAILY PRN back 05/14/22 (Lidoderm) pain #15 ea Allergies Allergy/AdvReac Type Severity Reaction Status Date / Time codeine [CODEINE] Allergy Severe Nausea/ Verified 05/14/22 18:49 vomiting latex [LATEX] Allergy Mild Rash Verified 05/14/22 18:49 narcotics AdvReac Severe Vomiting Uncoded 07/07/19 13:30 Review of Systems <JESSICA Banuelos - Last Filed: 05/14/22 20:05> Review of Systems Narrative: General: denies fever, chills Head/Neck: denies headache, neck pain Eyes: denies visual changes, eye pain Cardio: denies chest pain, palpitations Respiratory: denies shortness of breath, cough GI: denies abdominal pain, nausea, vomiting, or diarrhea : denies dysuria, hematuria or flank pain MSK: denies new joint pain, muscle weakness or swelling, endorses right upper leg pain with ambulation Skin: denies rash, itching or wound Neuro: denies numbness, tingling, dizziness Patient History <JESSICA Banuelos - Last Filed: 05/14/22 20:05> Medical History (Updated 05/14/22 @ 19:30 by JESSICA Banuelos) Atrial fibrillation (~2000) Eczema (Unknown) Right knee pain Tendonitis (03/2017) Surgical History Cyst (03/2017) Family History Brother Afib Father Age: 72 Afib Social History Smoking Status: Never smoker second hand exposure: No alcohol intake: current (wine, once a month) substance use type: does not use Smoking Status: Never smoker alcohol intake frequency: holidays/special occasions only Substance Use Type: does not use Exam <JESSICA Banuelos - Last Filed: 05/14/22 20:05> Narrative Exam Narrative: Independently reviewed vitals signs and nursing notes. General: Awake, alert, nontoxic, no cardiorespiratory distress Head/Neck: Atraumatic, neck supple Eyes: EOMI, conjunctiva normal Nose: nares patent, no rhinorrhea Mouth/Throat: moist mucus membranes, posterior pharynx without erythema or lesion Cardio: Regular rate and rhythm, no peripheral edema Respiratory: respirations unlabored without wheezing, stridor, or rales. No retractions, hypoxia or tachypnea GI: Abdomen soft,, obese nontender to palpation x4 quadrants, no guarding or rebound tenderness MSK: Moves all extremities, neurovascularly intact, range of motion without deficit, tenderness over right MCL, no tenderness over LCL, patellar tendon, or patella, normal range of motion without deficit, patient is ambulatory with a limp on the right leg. Her upper thigh does not have any contusion, mass, lump, discoloration, deformity or other. Skin: Normal capillary refill, no rash Neuro: Normal speech and cognition, normal gait Initial Vital Signs Initial Vital Signs: Vital Signs Temperature 98.4 F 05/14/22 18:26 Pulse Rate 92 H 05/14/22 18:26 Respiratory Rate 16 05/14/22 18:26 Blood Pressure 136/75 05/14/22 18:26 Pulse Oximetry 97 05/14/22 18:26 Oxygen Delivery Method 05/14/22 18:26 <Eve Gaitan DO - Last Filed: 05/21/22 08:28> Initial Vital Signs Initial Vital Signs: Vital Signs Temperature 98.4 F 05/14/22 18:26 Pulse Rate 92 H 05/14/22 18:26 Respiratory Rate 16 05/14/22 18:26 Blood Pressure 136/75 05/14/22 18:26 Pulse Oximetry 97 05/14/22 18:26 Oxygen Delivery Method 05/14/22 18:26 Course <JESSICA Banuelos - Last Filed: 05/14/22 20:05> Orders Ordered: Discontinued Medications Acetaminophen (Acetaminophen 325 Mg Tablet) 975 mg PO NOW ONE Stop: 05/14/22 18:26 Last Admin: 05/14/22 18:37 Dose: 975 mg Documented By: BLANCA Ketorolac Tromethamine (Ketorolac 10 Mg Tablet) 10 mg PO NOW ONE Stop: 05/14/22 19:13 Last Admin: 05/14/22 19:20 Dose: 10 mg Documented By: GARCIA Lidocaine (Lidocaine Patch 1 Each Adh..Patch) 1 each TOP NOW ONE Stop: 05/14/22 19:13 Last Admin: 05/14/22 19:21 Dose: 1 each Documented By: GARCIA Vital Signs Vital signs: Vital Signs - 8 hr 05/14/22 18:26 Temperature 98.4 F Pulse Rate 92 H Respiratory Rate 16 Blood Pressure 136/75 Pulse Oximetry 97 Oxygen Delivery Method Room Air <Eve Gaitan DO - Last Filed: 05/21/22 08:28> Orders Ordered: Discontinued Medications Acetaminophen (Acetaminophen 325 Mg Tablet) 975 mg PO NOW ONE Stop: 05/14/22 18:26 Last Admin: 05/14/22 18:37 Dose: 975 mg Documented By: BLANCA Ketorolac Tromethamine (Ketorolac 10 Mg Tablet) 10 mg PO NOW ONE Stop: 05/14/22 19:13 Last Admin: 05/14/22 19:20 Dose: 10 mg Documented By: GARCIA Lidocaine (Lidocaine Patch 1 Each Adh..Patch) 1 each TOP NOW ONE Stop: 05/14/22 19:13 Last Admin: 05/14/22 19:21 Dose: 1 each Documented By: GARCIA Vital Signs Vital signs: Vital Signs - 8 hr 05/14/22 18:26 Temperature 98.4 F Pulse Rate 92 H Respiratory Rate 16 Blood Pressure 136/75 Pulse Oximetry 97 Oxygen Delivery Method Room Air MDM - Extremity Injury (Lower) <JESSICA Banuelos - Last Filed: 05/14/22 20:05> Imaging Data Extremity x-ray #1: Radiologist's Impression: PROCEDURE:? XR KNEE RT 3V ? INDICATIONS:? fall, pain ? TECHNIQUE:? 3 views of the knee were acquired.? ? COMPARISON:? [facility], , XR KNEE RT 3V, 10/02/2019, 20:21. ? FINDINGS:? ? Bones:? No fractures or dislocations.? Tricompartmental degenerative changes with medial joint space narrowing and medial osteophytes.? There are osteophytes of the patella.? No suspicious bony lesions.? ? Soft tissues:? No joint effusion.? No suspicious soft tissue calcifications.? ? ? IMPRESSION:? Tricompartmental degenerative changes consistent with osteoarthritis.? No acute abnormality. ? ? Dictated by: Jackson Lopez M.D. on 05/14/2022 at 18:59 ? ? Approved by: Jackson Lopez M.D. on 05/14/2022 at 19:00 ? MDM Narrative Medical decision making narrative: This is a 36-year-old female presents to the emergency department complaining of a fall at work two days ago where she fell down onto her right side. She endorses right upper leg pain in the mid shaft of her femur, there was no ecchymosis, erythema, lump, or signs of infection. Her right knee x-ray shows tricompartmental degenerative changes consistent with osteoarthritis and no acute abnormality. She does have osteophytes of the patella without any suspicious bony lesions., she has tenderness over her MCL, no significant ten derness over the LCL, patellar tendon, negative Octaviano's, and she is ambulatory but walking with a right-sided limp. Patient is obese, has history of arthritis of her knees, reports that she is lost 90 lb and this has greatly improved however today her tenderness over the MCL and her mid shaft fever pain is still significant. She has been taking 800 mg of ibuprofen every 8 hours and this was not adequate for her pain. In the emergency department, she was given oral Toradol Tylenol, lidocaine patch reports moderate improvement in her pain. She does not have any weakness, she does not have any sensation changes distally, she endorses two episodes of radiculopathy which went around her hip and down her leg to her knee on the right side. She denies any saddle anesthesia, or persistent symptoms. This is a self-insured L and I claim, her OMB number is [phone]. L and I paperwork was filled out and submitted. She is given copies. Encourage patient to treat herself at home with NSAIDs, lidocaine patches and diclofenac gel, ice, rest with gentle mobility and to follow-up with [facility] if her symptoms are ongoing beyond one week. She would benefit from physical therapy as an option if they agree, patient's primary care provider is Dr. Roa who does not see patients for L and I claims. I encouraged her to ask for a referral to physical therapy from him if indicated or to get this from Orthopedics after following up. Patient is appropriate and amenable to discharge home. Vital signs are stable on repeat examination is unremarkable. Patient has been informed of results. Patient has been given strict return to ER precautions for any new or worsening symptoms. Patient understands to follow up closely with outpatient providers as instructed. Patient understands plan and agrees to discharge home. All questions and concerns answered at this time. Discharge Plan Departure Patient Disposition: Home Clinical Impression: Injury of leg, right Qualifiers: Encounter type: initial encounter Qualified Code(s): S89.91XA - Unspecified injury of right lower leg, initial encounter Tricompartment degenerative joint disease of knee Qualifiers: Laterality: right Qualified Code(s): M17.11 - Unilateral primary osteoarthritis, right knee Fall Qualifiers: Encounter type: initial encounter Qualified Code(s): W19.XXXA - Unspecified fall, initial encounter Low back strain Qualifiers: Encounter type: initial encounter Qualified Code(s): S39.012A - Strain of muscle, fascia and tendon of lower back, initial encounter Strain of right knee and leg Qualifiers: Encounter type: initial encounter Qualified Code(s): S86.911A - Strain of unspecified muscle(s) and tendon(s) at lower leg level, right leg, initial encounter Instructions: DI for Knee Sprain, DI for Knee Pain, DI for Leg Pain Activity Restrictions/Additional Instructions: *You have been diagnosed with right leg pain from your fall. Your knee x-ray shows degenerative changes consistent with osteoarthritis and does not show any new changes to the bones in your right leg. I suspect this is most likely a soft tissue injury which should improve with anti-inflammatories, rest and ice, light mobility and adequate pain control. Please try adding Tylenol to your regimen, I have sent some Toradol to your pharmacy, please take that with food and water like you do with ibuprofen, but do not combine it with ibuprofen. It might upset your stomach like meloxicam does but it is worth a try. Try using the topical diclofenac gel, this may be more beneficial for your soft tissue injury then an oral anti-inflammatory. You may use a lidocaine patch if this is helpful as well, you may place a patch every 12 hours on whatever body part is most painful, it is okay to use two at once. If your pain is ongoing beyond one week despite the things that you are trying, please ask Dr. Roa for another referral to physical therapy, and go to [facility] and follow-up with them or Dr. Beltre whichever you prefer. I am sorry we did not find the reason for the causing her pain today. The only Dr. Moore I found were one who is a shucker out of [facility] and another who is a rehab physician. *What to do: *Please continue to take your regular medications as directed. [ x] New medication prescriptions sent to your pharmacy: [[facility] ] [ ] New medication written as a paper prescription [ ] No new medications given *Please follow up with your primary care provider in 2-3 days, call for an appointment. Let them know you were seen in the Emergency Department and that we asked that you be seen for follow-up. We will electronically transmit a record of today's note if your PCP is in our system *If you do not have a primary care provider please contact [phone] to establish care with one of the [facility] primary care providers. *Return to Emergency Department if you should have any new, worsening or concerning symptoms, such as [fever greater than 101F, chills, worsening pain, persistent vomiting or other bothersome symptoms] Prescriptions: New diclofenac sodium 1 % gel 4 g topical QID PRN (Reason: knee pain) Qty: 100 0RF Rx Instructions: to back or lower extremities for pain. lidocaine [Lidoderm] 5 % adhesive patch,medicated 1 patch topical DAILY PRN (Reason: back pain) Qty: 15 0RF Rx Instructions: leave on most painful area for up to 12 hrs No Action albuterol sulfate 90 mcg/actuation HFA aerosol inhaler 1 inh INHALATION Q4-6H PRN (Reason: shortness of breath) Qty: 18 0RF Label Comments: patient states has on hand...has not had to use it. 05/29/19 meloxicam [Mobic] 15 mg tablet 15 mg PO DAILY Qty: 20 0RF Rx Instructions: not with other NSAIDs ibuprofen 600 mg tablet 600 mg PO TID-QID PRN (Reason: pain) Qty: 20 0RF Referrals: [facility] [Provider Group] [facility] [Outside] Keith Roa MD [Primary Care Provider] - Visit Report Forms: Patient Portal/API <Eve Gaitan DO - Last Filed: 05/21/22 08:28> Cosign ED Attending Andrewature Attestation: I was immediately available in the department for consultation. Documentation has been reviewed.
[2022-05-14] MEDS: LIDOCAINE PATCH 1 EACH ADH..PATCH TOP (19:21)
[2022-05-14 20:13] VITALS: BP 121/74; PULSE 76; RESP 18; O2SAT 100
== END 2022-05-14 20:15 | disposition home or self-care (01) ==
PROVIDERS: Emergency Provider Nurse Practitioner Critical Care Medicine; PCP Internal Medicine
DX: S89.91XA Unspecified injury of right lower leg, initial encounter (principal); S39.012A Strain of muscle, fascia and tendon of lower back, initial encounter; S86.911A Strain of unspecified muscle(s) and tendon(s) at lower leg level, right leg, initial encounter; M17.11 Unilateral primary osteoarthritis, right knee; W19.XXXA Unspecified fall, initial encounter; Y99.0 Civilian activity done for income or pay
CPT/HCPCS: 73562; 99283; 99284

== ENCOUNTER 2022-07-09 20:34 | Emergency (ER) | payer OTHER, MEDICAID, SELFPAY ==
[2022-07-09 20:38] VITALS: BP 124/89; PULSE 85; RESP 16; TEMP 36.1; O2SAT 100; BMI 50.6
--- NOTE | 2022-07-09 20:45 | DI.RAD.S_ITS ---
PROCEDURE: XR CHEST 1V INDICATIONS: chest pain TECHNIQUE: One view of the chest was acquired. COMPARISON: [facility], , CHEST 2 VIEW, 12/27/2017, 10:50. FINDINGS: Surgical changes and devices: None. Lungs and pleura: Lungs are clear. No pleural effusions or pneumothorax. Mediastinum: Mediastinal contours appear normal. Heart size is normal. Bones and chest wall: No suspicious bony lesions. Overlying soft tissues appear unremarkable. IMPRESSION: 1. No acute cardiopulmonary disease. Dictated by: Nishant Adams M.D. on 07/09/2022 at 22:19 Approved by: Nishant Adams M.D. on 07/09/2022 at 22:20
--- NOTE | 2022-07-09 20:57 | ED_ITS ---
HPI - Arrhythmia/Palpitations General Chief Complaint: Arrhythmia/Palpitations Stated Complaint: Arrhythmia Time Seen by Provider: 07/09/22 20:50 History of Present Illness HPI narrative: 36F nonsmoker with a history of asthma and paroxysmal atrial fibrillation (without anticoagulation or any specific cardiac medications presents with a chief complaint of a few episodes of palpitations and what she believes is atrial fibrillation over the past few weeks. She is currently asymptomatic and states that her symptoms when present usually last only a minute or 2 with the last few episodes have lasted upwards of 10 minutes or so. She denies any dizziness or lightheadedness and has no chest pain or short. She denies any recent travel or injuries and has no history of blood clots or known cancer. She is been under significant stress lately but denies any alcohol, nicotine or caffeine intake. Related Data Previous Rx's Medication Instructions Recorded albuterol sulfate 90 mcg/actuation 1 inh inhalation Q4-6H PRN 03/15/19 aerosol inhaler shortness of breath #18 grams meloxicam 15 mg tablet (Mobic) 15 mg PO DAILY foot pain #20 tabs 08/10/19 ibuprofen 600 mg tablet 600 mg PO TID-QID PRN pain #20 tabs 10/02/19 diclofenac sodium 1 % topical gel 4 g topical QID PRN knee pain #100 05/14/22 grams lidocaine 5 % topical patch 1 patch topical DAILY PRN back 05/14/22 (Lidoderm) pain #15 ea Allergies Allergy/AdvReac Type Severity Reaction Status Date / Time codeine [CODEINE] Allergy Severe Nausea/ Verified 05/14/22 18:49 vomiting latex [LATEX] Allergy Mild Rash Verified 05/14/22 18:49 narcotics AdvReac Severe Vomiting Uncoded 07/07/19 13:30 Review of Systems Review of Systems Narrative: GENERAL: Denies chills, fatigue, malaise, fever, sweats. HEENT: Denies sinus pain, ear pain, sore throat, difficulty swallowing, dizziness. RESPIRATORY: Denies dyspnea, cough, wheezing, hemoptysis, sputum. CARDIOVASCULAR: See HPI GASTROINTESTINAL: Denies nausea, vomiting, abdominal pain, diarrhea, constipation, melena. : Denies dysuria, frequency, incontinence, hematuria, urinary retention. MUSCULOSKELETAL: denies weakness, joint pain, or bony pain SKIN: Denies rash, skin lesions, or other NEUROLOGIC: Denies weakness, headache, numbness, change in speech, confusion, seizures, incoordination. PSYCHIATRIC: No concerning psychosocial issues. 12 point review of systems is negative except for those stated above Patient History Medical History Atrial fibrillation (~2000) Eczema (Unknown) Right knee pain Tendonitis (03/2017) Surgical History Cyst (03/2017) Family History Brother Afib Father Age: 72 Afib Social History Smoking Status: Never smoker second hand exposure: No alcohol intake: current (wine, once a month) substance use type: does not use Smoking Status: Never smoker alcohol intake frequency: holidays/special occasions only Substance Use Type: does not use Exam Narrative Exam Narrative: GENERAL: [36] year old patient appears stated age. Well-developed patient, in mild distress. HEAD: Atraumatic. Normocephalic. EYES: Pupils equal round and reactive. Extraocular motions intact. No scleral icterus. No injection or drainage. ENT: Nose without bleeding, purulent drainage. Throat without erythema, tonsillar hypertrophy or exudate. Airway patent. NECK: Trachea midline. Non tender CARDIOVASCULAR: Regular rate and rhythm without murmurs, gallops, or rubs. RESPIRATORY: Clear to auscultation. Breath sounds equal bilaterally. No wheezes, rales, or rhonchi. GASTROINTESTINAL: Abdomen soft, non-tender, nondistended. EXTREMITIES: No edema or joint tenderness. BACK: Nontender without deformity or crepitance. No flank tenderness. NEURO: AOx3. SKIN: No rash or erythema of visible areas Initial Vital Signs Initial Vital Signs: Vital Signs Temperature 97.0 F L 07/09/22 20:38 Pulse Rate 85 07/09/22 20:38 Respiratory Rate 16 07/09/22 20:38 Blood Pressure 124/89 07/09/22 20:38 Pulse Oximetry 100 07/09/22 20:38 Oxygen Delivery Method 07/09/22 20:38 Course Orders Ordered: ED Orders 07/09/22 20:45 XR chest 1V Stat 07/09/22 20:54 Complete Blood Count AUTO DIFF Stat Comprehensive Metabolic Panel Stat D Dimer Stat Free T4, Direct Thyroxine Stat Lipase Stat Thyroid Stimulating Hormone Stat Troponin & CK Cardiac Panel Stat 07/09/22 21:03 EKG-12 Lead Stat 07/09/22 21:32 CT angio chest PE protocol Stat Discontinued Medications Sodium Chloride (Normal Saline 0.9%) 1,000 mls @ 150 mls/hr IV CONT OSBALDO Last Admin: 07/09/22 21:10 Dose: 150 mls/hr Documented By: GARCIA Vital Signs Vital signs: Vital Signs - 8 hr 07/09/22 23:40 07/10/22 00:38 Pulse Rate 79 81 Respiratory Rate 20 23 Blood Pressure 130/76 121/77 Pulse Oximetry 100 99 Oxygen Delivery Method Room Air Room Air MDM - Arrhythmia/Palpitations Lab Data Result diagrams: 07/09/22 20:54 07/09/22 20:54 Labs: Lab Results 07/09/22 07/09/22 07/09/22 Range/Units 20:54 20:54 20:54 WBC 6.8 (4.5-11.0) X10^3/uL RBC 4.65 (4.0-5.2) X10^6/uL Hgb 12.8 (12.0-16.0) g/dL Hct 39.3 (36-46) % MCV 84.5 (80-100) fL MCH 27.6 (26-34) PG MCHC 32.7 (30-36) % RDW 14.5 (11.6-14.8) % Plt Count 178 (150-400) X10^3/uL Neut % (Auto) 66.1 (50-75) % Lymph % (Auto) 25.5 (25-40) % [place] % (Auto) 6.5 (3-14) % Eos % (Auto) 1.1 L (2-4) % Baso % (Auto) 0.8 (0-2) % Neut # (Auto) 4500 (4094-9107) /uL Lymph # (Auto) 1700 (7148-8423) /uL [place] # (Auto) 400 (0-900) /uL Eos # (Auto) 100 (0-450) /uL Baso # (Auto) 100 (0-100) /uL D-Dimer 655 H (<500) ng/ml Sodium 139 (137-145) mmol/L Potassium 4.2 (3.4-5.1) mmol/L Chloride 104 (98-107) mmol/L Carbon Dioxide 25 (22-32) mmol/L BUN 21 H (7-17) mg/dL Creatinine 0.77 (0.52-1.04) mg/dL Estimated GFR > 60 (>60) mL/min BUN/Creatinine Ratio 27.3 H (6-22) Glucose 100 (70-100) mg/dL Calcium 8.8 (8.4-10.2) mg/dL Total Bilirubin 0.3 (0.2-1.3) mg/dL AST 17 (14-36) IU/L ALT 12 (<35) IU/L Alkaline Phosphatase 76 (38-126) U/L Total Creatine Kinase 75 (30-135) U/L CK-MB (CK-2) TNP CK-MB (CK-2) Rel Index TNP Troponin I < 0.012 (0.01-0.034) ng/mL Total Protein 8.0 (6.3-8.2) g/dL Albumin 4.2 (3.5-5.0) g/dL Globulin 3.8 (1.7-4.1) g/dL Albumin/Globulin Ratio 1.1 (1.0-2.8) Lipase 92 (23-300) U/L TSH (0.47-4.68) uIU/mL Free T4 (0.78-2.19) ng/dL 07/09/22 Range/Units 20:54 WBC (4.5-11.0) X10^3/uL RBC (4.0-5.2) X10^6/uL Hgb (12.0-16.0) g/dL Hct (36-46) % MCV (80-100) fL MCH (26-34) PG MCHC (30-36) % RDW (11.6-14.8) % Plt Count (150-400) X10^3/uL Neut % (Auto) (50-75) % Lymph % (Auto) (25-40) % [place] % (Auto) (3-14) % Eos % (Auto) (2-4) % Baso % (Auto) (0-2) % Neut # (Auto) (7765-2223) /uL Lymph # (Auto) (0906-0081) /uL [place] # (Auto) (0-900) /uL Eos # (Auto) (0-450) /uL Baso # (Auto) (0-100) /uL D-Dimer (<500) ng/ml Sodium (137-145) mmol/L Potassium (3.4-5.1) mmol/L Chloride (98-107) mmol/L Carbon Dioxide (22-32) mmol/L BUN (7-17) mg/dL Creatinine (0.52-1.04) mg/dL Estimated GFR (>60) mL/min BUN/Creatinine Ratio (6-22) Glucose (70-100) mg/dL Calcium (8.4-10.2) mg/dL Total Bilirubin (0.2-1.3) mg/dL AST (14-36) IU/L ALT (<35) IU/L Alkaline Phosphatase (38-126) U/L Total Creatine Kinase (30-135) U/L CK-MB (CK-2) CK-MB (CK-2) Rel Index Troponin I (0.01-0.034) ng/mL Total Protein (6.3-8.2) g/dL Albumin (3.5-5.0) g/dL Globulin (1.7-4.1) g/dL Albumin/Globulin Ratio (1.0-2.8) Lipase (23-300) U/L TSH 4.88 H (0.47-4.68) uIU/mL Free T4 1.02 (0.78-2.19) ng/dL Imaging Data CT scan - chest: Radiologist's Impresson: [address] [address] [address] Scan Report Signed Patient: Tevin Askew MR#: [id number] : 1985 Acct:[id number] Age/Sex: 36 / F Date of Service: 07/09/22 Loc: ED Accession Number: [id number] ?? Procedure: CT angio chest PE protocol Ordering Provider: Jack Lopez D.O. PROCEDURE:? CT ANGIO CHEST PE PROTOCOL ? INDICATIONS:? CP, SOB, hypoxia, elevated dimer ? TECHNIQUE:? After the administration of intravenous contrast, 2 mm thick sections acquired from the pulmonary apices to the posterior costophrenic angles.? 3-dimensional maximum intensity projection (MIP) coronal and sagittal reformats were then acquired through the thorax.? For radiation dose reduction, the following was used:? automated exposure control, adjustment of mA and/or kV according to patient size.? ? COMPARISON:? None. ? FINDINGS:? Image quality:? There is mild motion artifact slightly limiting evaluation.? ? Pulmonary arteries:? Pulmonary arteries demonstrate no intraluminal filling defects to suggest central pulmonary embolism.? ? Lower Neck: No lymphadenopathy by size criteria. Thyroid:? Visualized thyroid demonstrates no discrete nodules. Axillae: No lymphadenopathy by size criteria. Chest Wall:? Unremarkable.? Bones: Visualized osseous structures demonstrate no suspicious lesions. ? Lungs and Airways:? No acute consolidation.? There is minimal dependent atelectasis.? The trachea and central airways are patent. Pleura: No pneumothorax or pleural effusions.? ? Heart: Heart size is normal.? No pericardial effusion. Thoracic Vessels: The thoracic aorta is normal in size.? Mediastinum and [place]: No lymphadenopathy by size criteria. Esophagus: No wall thickening. No hiatal hernia. ? Abdomen:? Visualized upper abdominal solid organs appear normal in the early arterial phase of enhancement.? ? Abdomen:? Visualized upper abdominal solid organs appear normal in the early arterial phase of enhancement.? ? IMPRESSION:? ? 1. No evidence of pulmonary embolism. ? 2. No acute airspace consolidation.? ? ? Dictated by: Nishant Adams M.D. on 07/09/2022 at 23:46 ? ? Approved by: Nishant Admas M.D. on 07/09/2022 at 23:49 ? Chest x-ray: Radiologist's Impresson: Tevin Askew??36??F??1985 ? Allergy/Adv: codeine, latex, [narcotics] (More??) Close Chest CTA (Signed) Nishant Adams - 07/09/22 Chest X-Ray (Signed) Nishant Adams - 07/09/22 Knee X-Ray (Signed) Jackson Lopez - 05/14/22 Lumbar Spine X-Ray (Signed) Montrell Tavera - 01/21/21 Knee X-Ray (Signed) HasmukhAriel - 10/02/19 Foot X-Ray (Signed) Debbie Huitron - 08/10/19 Knee X-Ray (Signed) Josemanuel Martin - 04/05/18 Launch?Image [address] [address] XRay Report Signed Patient: Tevin Askew MR#: [id number] : 1985 Acct:[id number] Age/Sex: 36 / F Date of Service: 07/09/22 Loc: ED Accession Number: [id number] ?? Procedure: XR chest 1V Ordering Provider: Jack Lopez D.O. PROCEDURE:? XR CHEST 1V ? INDICATIONS:? chest pain ? TECHNIQUE:? One view of the chest was acquired.? ? COMPARISON:? [facility], , CHEST 2 VIEW, 12/27/2017, 10:50. ? FINDINGS:? ? Surgical changes and devices:? None.? ? Lungs and pleura:? Lungs are clear.? No pleural effusions or pneumothorax.? ? Mediastinum:? Mediastinal contours appear normal.? Heart size is normal.? ? Bones and chest wall:? No suspicious bony lesions.? Overlying soft tissues appear unremarkable.? ? IMPRESSION:? ? 1.? No acute cardiopulmonary disease. ? ? ? Dictated by: Nishant Adams M.D. on 07/09/2022 at 22:19 ? ? Approved by: Nishant Adams M.D. on 07/09/2022 at 22:20 ? MDM Narrative Medical decision making narrative: Patient with reported history of atrial fibrillation is observed for multiple hours without evidence of AFib. Her vital signs and labs are unremarkable with exception of an elevated D-dimer hence the decision to pursue with CT angiogram which thankfully is absent of any evidence suggestive of blood clot. She is encouraged to follow closely with her primary care provider and will likely benefit from a ZIO patch or Holter monitor. Return precautions discussed and questions answered to her apparent satisfaction Discharge Plan Departure Patient Disposition: Home Clinical Impression: Palpitations Instructions: Arrhythmias Activity Restrictions/Additional Instructions: *You have been diagnosed with [palpitations, possible recurrence of atrial fibrillation. As we discussed your history and physical exam as well as labs, EKGs and CT scan are reassuring and there is no evidence of current arrhythmia, pulmonary embolism or other significant abnormality that would require a specific or immediate intervention] *What to do: *Please continue to take your regular medications as directed. [ ] New medication prescriptions sent to your pharmacy: [ ] [ ] New medication written as a paper prescription [x] No new medications given *Please follow up with your primary care provider in 2-3 days, call for an appointment. Let them know you were seen in the Emergency Department and that we ask that you be seen in follow up. We will electronically transmit a record of today's note if your PCP is in our system *Return to Emergency Department if you should have any new, worsening or concerning symptoms, such as [fever greater than 101 F, shaking chills, worsening pain, persistent vomiting or other bothersome symptoms] Prescriptions: No Action albuterol sulfate 90 mcg/actuation HFA aerosol inhaler 1 inh INHALATION Q4-6H PRN (Reason: shortness of breath) Qty: 18 0RF Label Comments: patient states has on hand...has not had to use it. 05/29/19 meloxicam [Mobic] 15 mg tablet 15 mg PO DAILY Qty: 20 0RF Rx Instructions: not with other NSAIDs diclofenac sodium 1 % gel 4 g topical QID PRN (Reason: knee pain) Qty: 100 0RF Rx Instructions: to back or lower extremities for pain. lidocaine [Lidoderm] 5 % adhesive patch,medicated 1 patch topical DAILY PRN (Reason: back pain) Qty: 15 0RF Rx Instructions: leave on most painful area for up to 12 hrs ibuprofen 600 mg tablet 600 mg PO TID-QID PRN (Reason: pain) Qty: 20 0RF Referrals: Keith Roa MD [Primary Care Provider] - Stand Alone Forms: Work Release Note Visit Report Forms: Patient Portal/API
[2022-07-09] MEDS: SODIUM CHLORIDE 0.9% 1,000 ML 150 ML IV (21:10)
[2022-07-09 21:15] LABS: D Dimer 655 ng/ml (<500)
[2022-07-09 21:17] LABS: Alanine Aminotransferase 12 IU/L (<35); Albumin 4.2 g/dL (3.5-5.0); Albumin Globulin Ratio 1.1 (1.0-2.8); Alkaline Phosphatase 76 U/L (38-126); Aspartate Aminotransferase 17 IU/L (14-36); BUN Creatinine Ratio 27.3 (6-22); Bilirubin Total 0.3 mg/dL (0.2-1.3); Blood Urea Nitrogen 21 mg/dL (7-17); Calcium 8.8 mg/dL (8.4-10.2); Carbon Dioxide 25 mmol/L (22-32); Chloride 104 mmol/L (98-107); Creatine Kinase 75 U/L (30-135); Estimated Glomerular Filt Rate > 60 mL/min (>60); Globulin 3.8 g/dL (1.7-4.1); Glucose 100 mg/dL (70-100); HEMOLYSIS 19 (0-50); Lipase 92 U/L (23-300); Potassium 4.2 mmol/L (3.4-5.1); Sodium 139 mmol/L (137-145)
[2022-07-09 21:20] LABS: Add Manual Diff / Slide Review NO; Basophils Absolute Auto 100 /uL (0-100); Basophils Percent Auto 0.8 % (0-2); Eosinophils Absolute Auto 100 /uL (0-450); Eosinophils Percent Auto 1.1 % (2-4); Hematocrit 39.3 % (36-46); Hemoglobin 12.8 g/dL (12.0-16.0); Lymphocytes Absolute Auto 1700 /uL (1100-4500); Lymphocytes Percent Auto 25.5 % (25-40); Mean Corpuscular HGB Conc 32.7 % (30-36); Mean Corpuscular Hemoglobin 27.6 PG (26-34); Mean Corpuscular Volume 84.5 fL (80-100); Monocytes Absolute Auto 400 /uL (0-900); Monocytes Percent Auto 6.5 % (3-14); Neutrophils Absolute Auto 4500 /uL (1500-7000); Neutrophils Percent Auto 66.1 % (50-75); Platelet Count 178 X10^3/uL (150-400); Red Blood Cell Count 4.65 X10^6/uL (4.0-5.2); Red Cell Distribution Width 14.5 % (11.6-14.8); White Blood Cell Count 6.8 X10^3/uL (4.5-11.0)
[2022-07-09 21:28] LABS: Troponin I < 0.012 ng/mL (0.01-0.034)
--- NOTE | 2022-07-09 21:32 | DI.CT.S_ITS ---
PROCEDURE: CT ANGIO CHEST PE PROTOCOL INDICATIONS: CP, SOB, hypoxia, elevated dimer TECHNIQUE: After the administration of intravenous contrast, 2 mm thick sections acquired from the pulmonary apices to the posterior costophrenic angles. 3-dimensional maximum intensity projection (MIP) coronal and sagittal reformats were then acquired through the thorax. For radiation dose reduction, the following was used: automated exposure control, adjustment of mA and/or kV according to patient size. COMPARISON: None. FINDINGS: Image quality: There is mild motion artifact slightly limiting evaluation. Pulmonary arteries: Pulmonary arteries demonstrate no intraluminal filling defects to suggest central pulmonary embolism. Lower Neck: No lymphadenopathy by size criteria. Thyroid: Visualized thyroid demonstrates no discrete nodules. Axillae: No lymphadenopathy by size criteria. Chest Wall: Unremarkable. Bones: Visualized osseous structures demonstrate no suspicious lesions. Lungs and Airways: No acute consolidation. There is minimal dependent atelectasis. The trachea and central airways are patent. Pleura: No pneumothorax or pleural effusions. Heart: Heart size is normal. No pericardial effusion. Thoracic Vessels: The thoracic aorta is normal in size. Mediastinum and [place]: No lymphadenopathy by size criteria. Esophagus: No wall thickening. No hiatal hernia. Abdomen: Visualized upper abdominal solid organs appear normal in the early arterial phase of enhancement. Abdomen: Visualized upper abdominal solid organs appear normal in the early arterial phase of enhancement. IMPRESSION: 1. No evidence of pulmonary embolism. 2. No acute airspace consolidation. Dictated by: Nishant Adams M.D. on 07/09/2022 at 23:46 Approved by: Nishant Adams M.D. on 07/09/2022 at 23:49
[2022-07-09 21:56] LABS: Thyroid Stimulating Hormone 4.88 uIU/mL (0.47-4.68)
[2022-07-09 22:29] LABS: Free T4, Direct Thyroxine 1.02 ng/dL (0.78-2.19)
[2022-07-09 23:40] VITALS: BP 130/76; PULSE 79; RESP 20; O2SAT 100
[2022-07-10 00:38] VITALS: BP 121/77; PULSE 81; RESP 23; O2SAT 99
== END 2022-07-10 00:41 | disposition home or self-care (01) ==
PROVIDERS: Emergency Provider Emergency Medicine; PCP Internal Medicine
DX: R00.2 Palpitations (principal); R07.9 Chest pain, unspecified
CPT/HCPCS: 36415; 71045; 71275; 80053; 82550; 83690; 84439; 84443; 84484; 85025; 85379; 93005; 93010; 99284; Q9967

== ENCOUNTER 2022-11-25 11:52 | Emergency (ER) | payer OTHER, MEDICAID, SELFPAY ==
[2022-11-25 11:58] VITALS: BP 135/89; PULSE 69; RESP 16; TEMP 36.6; O2SAT 99; BMI 58.5
--- NOTE | 2022-11-25 12:01 | DI.RAD.S_ITS ---
PROCEDURE: XR FOOT RT MIN 3V INDICATIONS: foot pain and swelling TECHNIQUE: 3 views of the foot were acquired. COMPARISON: [facility], CR, XR FOOT RT MIN 3V, 08/10/2019, 17:29. FINDINGS: Bones: No displaced fracture or dislocation. Mild midfoot degenerative changes. Soft tissues: No suspicious calcifications. Plantar calcaneal enthesopathy. IMPRESSION: Mild midfoot degenerative changes and plantar calcaneal enthesopathy. No acute radiographic abnormality. If there is high concern for further derangement, consider MRI evaluation. Dictated by: Bogdan Valera M.D. on 11/25/2022 at 12:23 Approved by: Bogdan Valera M.D. on 11/25/2022 at 12:24
--- NOTE | 2022-11-25 13:40 | PC.NURSE ---
Pt states R-foot pain 8/10 barely able to walk on it. Reports that she's been very active lately moving, pain started 0400. Slight bruising noted on mid-calf area.
--- NOTE | 2022-11-25 14:11 | DI.RAD.S_ITS ---
PROCEDURE: XR LUMBAR SPINE 2-3V INDICATIONS: RT lumbar radiculopathy after moving TECHNIQUE: 3 views of the lumbar spine were acquired. COMPARISON: [facility], CR, XR LUMBAR SPINE 2-3V, 01/21/2021, 11:36. FINDINGS: Bones: There are 5 lumbar type vertebral bodies. Trace rightward spinal curvature again seen. No spondylolisthesis. Mild multilevel spondylosis with facet arthropathy, disc space height loss particularly L5-S1, and osteophyte formation. Vertebral body heights are otherwise well maintained. Soft tissues: Unremarkable bowel gas pattern. IMPRESSION: Mild spondylosis and trace rightward spinal curvature. If there is high concern for further derangement, consider MRI evaluation. Dictated by: Bogdan Valera M.D. on 11/25/2022 at 14:43 Approved by: Bogdan Valera M.D. on 11/25/2022 at 14:44
--- NOTE | 2022-11-25 14:26 | ED.EXTPRO ---
HPI - Extremity Problem <JESSICA Banuelos - Last Filed: 11/25/22 15:15> General Chief complaint: Extremity Problem,Nontraumatic Stated complaint: RT ankle /leg pain/swelling T-1 geting worse Time Seen by Provider: 11/25/22 13:28 Source: patient Mode of arrival: Wheelchair History of Present Illness HPI Narrative: This is a 29-year-old female with morbid obesity, who states that she is been moving for the last 2 days and presents with right foot pain that she states starts at the base and shoots all the way up her leg. She denies any injury to her foot, she has history of lymphedema to bilateral extremities and denies any pain out of proportion, redness, denies any weakness, or numbness or tingling. She states that the pain is persistent and started yesterday in the afternoon. She is tried ibuprofen which was helpful. She denies any urinary incontinence or retention but endorses urinary frequency and urgency and her urine is darker than usual. She endorses low back pain when prompted. She denies any stool changes. Has had normal bowel movements. Related Data Previous Rx's Medication Instructions Recorded albuterol sulfate 90 mcg/actuation 1 inh inhalation Q4-6H PRN 03/15/19 aerosol inhaler shortness of breath #18 grams meloxicam 15 mg tablet (Mobic) 15 mg PO DAILY foot pain #20 tabs 08/10/19 ibuprofen 600 mg tablet 600 mg PO TID-QID PRN pain #20 tabs 10/02/19 diclofenac sodium 1 % topical gel 4 g topical QID PRN knee pain #100 05/14/22 grams lidocaine 5 % topical patch 1 patch topical DAILY PRN back 05/14/22 (Lidoderm) pain #15 ea lidocaine 5 % topical patch 1 patch topical DAILY PRN pain #15 11/25/22 (Lidoderm) ea methocarbamol 750 mg tablet 750 mg PO TID PRN muscle spasm #20 11/25/22 tabs Allergies Allergy/AdvReac Type Severity Reaction Status Date / Time codeine [CODEINE] Allergy Severe Nausea/ Verified 11/25/22 11:58 vomiting latex [LATEX] Allergy Mild Rash Verified 05/14/22 18:49 narcotics AdvReac Severe Vomiting Uncoded 07/07/19 13:30 Review of Systems <JESSICA Banuelos - Last Filed: 11/25/22 15:15> Review of Systems ROS Unobtainable: All systems reviewed & are unremarkable except as noted in HPI and below Patient History <JESSICA Banuelos - Last Filed: 11/25/22 15:15> Medical History (Updated 12/10/22 @ 00:00 by ) Atrial fibrillation (~2000) Eczema (Unknown) Right knee pain Tendonitis (03/2017) Surgical History Cyst (03/2017) Family History Brother Afib Father Age: 72 Afib Social History Smoking Status: Never smoker second hand exposure: No alcohol intake: current (wine, once a month) substance use type: does not use Smoking Status: Never smoker alcohol intake frequency: holidays/special occasions only Substance Use Type: does not use Exam <JESSICA Banuelos - Last Filed: 11/25/22 15:15> Narrative Exam Narrative: Reviewed vitals signs and nursing notes. General: cooperative, comfortable, in no acute distress, well groomed HEENT: symmetrical facial expressions, moist mucous membranes Cardiovascular: regular rate and rhythm, warm extremities Respiratory: normal effort, able to speak in complete sentences, without wheezing, stridor, or abnormal breath sounds. No retractions or tachypnea. GI: abdomen soft, nontender to palpation, nondistended, without masses, rebound tenderness or exquisite tenderness with exam. MSK: moves all extremities, neurovascularly intact, no weakness, normal tone tenderness to the soft tissue around L5/sacrum, without step-off or exquisite tenderness over bones. Patient is able to dorsiflex and plantar extension foot, considerable lymphedema to bilateral lower extremities, this was wrapped by myself with a Carson bandage in light compression to help with her pain she does not reach this area very easily. Intact pulses and brisk cap refill, without warmth, erythema or wound. Skin: brisk capillary refill, without pallor or erythema Neuro: normal speech and cognition, A&O x3, ambulatory, clear speech Psych: mental status is grossly normal, congruent mood, normal affect, pleasant and cooperative Initial Vital Signs Initial Vital Signs: Vital Signs Temperature 97.9 F 11/25/22 11:58 Pulse Rate 69 11/25/22 11:58 Respiratory Rate 16 11/25/22 11:58 Blood Pressure 135/89 11/25/22 11:58 Pulse Oximetry 99 11/25/22 11:58 Oxygen Delivery Method 11/25/22 11:58 <Rodrigo Bishop MD - Last Filed: 12/10/22 07:31> Initial Vital Signs Initial Vital Signs: Vital Signs Temperature 97.9 F 11/25/22 11:58 Pulse Rate 69 11/25/22 11:58 Respiratory Rate 16 11/25/22 11:58 Blood Pressure 135/89 11/25/22 11:58 Pulse Oximetry 99 11/25/22 11:58 Oxygen Delivery Method 11/25/22 11:58 Course <JESSICA Banuelos - Last Filed: 11/25/22 15:15> Orders Ordered: Discontinued Medications Hydrocodone Bitart/Acetaminophen (Hydrocodone/Acet 5/325 Tablet) 1 tab PO NOW ONE Stop: 11/25/22 14:52 Last Admin: 11/25/22 14:57 Dose: 1 tab Documented By: BLANCA Cephalexin HCl (Cephalexin 250 Mg Capsule) 1,000 mg PO NOW ONE Stop: 11/25/22 14:51 Last Admin: 11/25/22 14:57 Dose: 1,000 mg Documented By: BLANCA Ketorolac Tromethamine (Ketorolac 30 Mg/Ml Vial) 30 mg IM NOW ONE Stop: 11/25/22 14:12 Last Admin: 11/25/22 14:42 Dose: 30 mg Documented By: BLANCA Lidocaine (Lidocaine Patch 1 Each Adh..Patch) 1 each TOP NOW ONE Stop: 11/25/22 14:12 Last Admin: 11/25/22 14:42 Dose: 1 each Documented By: BLANCA Methocarbamol (Methocarbamol 500 Mg Tablet) 750 mg PO NOW ONE Stop: 11/25/22 14:52 Last Admin: 11/25/22 14:57 Dose: 750 mg Documented By: BLANCA Prednisone (Prednisone 20 Mg Tablet) 40 mg PO NOW ONE Stop: 11/25/22 14:12 Last Admin: 11/25/22 14:43 Dose: 40 mg Documented By: BLANCA Vital Signs Vital signs: Vital Signs - 8 hr 11/25/22 11:58 Temperature 97.9 F Pulse Rate 69 Respiratory Rate 16 Blood Pressure 135/89 Pulse Oximetry 99 Oxygen Delivery Method Room Air <Rodrigo Bishop MD - Last Filed: 12/10/22 07:31> Orders Ordered: Discontinued Medications Hydrocodone Bitart/Acetaminophen (Hydrocodone/Acet 5/325 Tablet) 1 tab PO NOW ONE Stop: 11/25/22 14:52 Last Admin: 11/25/22 14:57 Dose: 1 tab Documented By: BLANCA Cephalexin HCl (Cephalexin 250 Mg Capsule) 1,000 mg PO NOW ONE Stop: 11/25/22 14:51 Last Admin: 11/25/22 14:57 Dose: 1,000 mg Documented By: BLANCA Ketorolac Tromethamine (Ketorolac 30 Mg/Ml Vial) 30 mg IM NOW ONE Stop: 11/25/22 14:12 Last Admin: 11/25/22 14:42 Dose: 30 mg Documented By: BLANCA Lidocaine (Lidocaine Patch 1 Each Adh..Patch) 1 each TOP NOW ONE Stop: 11/25/22 14:12 Last Admin: 11/25/22 14:42 Dose: 1 each Documented By: BLANCA Methocarbamol (Methocarbamol 500 Mg Tablet) 750 mg PO NOW ONE Stop: 11/25/22 14:52 Last Admin: 11/25/22 14:57 Dose: 750 mg Documented By: BLANCA Prednisone (Prednisone 20 Mg Tablet) 40 mg PO NOW ONE Stop: 11/25/22 14:12 Last Admin: 11/25/22 14:43 Dose: 40 mg Documented By: BLANCA Vital Signs Vital signs: Vital Signs - 8 hr 11/25/22 11:58 Temperature 97.9 F Pulse Rate 69 Respiratory Rate 16 Blood Pressure 135/89 Pulse Oximetry 99 Oxygen Delivery Method Room Air MDM - Extremity (Nontraumatic) <JESSICA Banuelos - Last Filed: 11/25/22 15:15> Lab Data Labs: Lab Results 11/25/22 Range/Units 14:47 Urine RBC 0-1/hpf (0-5/HPF) Urine WBC 1-5/hpf (0-5/HPF) Ur Squamous Epith Cells 5-10 /hpf H (0-5/HPF) Urine Bacteria None seen (None) Ur Culture Indicated? Specimen cultured Point of Care Testing Test Results Negative Urine Dip Bedside Urine Glucose Negative Bedside Urine Bilirubin - Negative Bedside Urine Ketone - Negative Urine Specific [place] 1.015 Bedside Urine Occult Blood - Negative Bedside Urine pH 7.0 Bedside Urine Protein - Negative Bedside Urine Urobilinogen - Negative Bedside Urine Nitrite - Negative Bedside Urine Leukocytes + 70 Esterase Imaging Data Chest x-ray: Radiologist's Impression: ROCEDURE:? XR LUMBAR SPINE 2-3V ? INDICATIONS:? RT lumbar radiculopathy after moving ? TECHNIQUE:? 3 views of the lumbar spine were acquired.? ? COMPARISON:? [facility], , XR LUMBAR SPINE 2-3V, 01/21/2021, 11:36. ? FINDINGS:? ? Bones:? There are 5 lumbar type vertebral bodies.? Trace rightward spinal curvature again seen.? No spondylolisthesis.? Mild multilevel spondylosis with facet arthropathy, disc space height loss particularly L5-S1, and osteophyte formation.? Vertebral body heights are otherwise well maintained. ? Soft tissues:? Unremarkable bowel gas pattern. ? ? IMPRESSION:? Mild spondylosis and trace rightward spinal curvature.? If there is high concern for further derangement, consider MRI evaluation. ? ? Dictated by: Bogdan Valera M.D. on 11/25/2022 at 14:43 ? ? Approved by: Bogdan Valera M.D. on 11/25/2022 at 14:44 ? Extremity x-ray #1: Radiologist's Impression: PROCEDURE:? XR FOOT RT MIN 3V ? INDICATIONS:? foot pain and swelling ? TECHNIQUE:? 3 views of the foot were acquired.? ? COMPARISON:? [facility], XR FOOT RT MIN 3V, 08/10/2019, 17:29. ? FINDINGS:? ? Bones:? No displaced fracture or dislocation.? Mild midfoot degenerative changes. ? Soft tissues:? No suspicious calcifications.? Plantar calcaneal enthesopathy. ? ? IMPRESSION:? Mild midfoot degenerative changes and plantar calcaneal enthesopathy.? No acute radiographic abnormality.? If there is high concern for further derangement, consider MRI evaluation. ? ? Dictated by: Bogdan Valera M.D. on 11/25/2022 at 12:23 ? ? Approved by: Bogdan Valera M.D. on 11/25/2022 at 12:24 ? [facility] Narrative Medical decision making narrative: This is a 29-year-old female with morbid obesity, who states that she is been moving for the last 2 days and presents with right foot pain that she states starts at the base and shoots all the way up her leg. She denies any injury to her foot, she has history of lymphedema to bilateral extremities and denies any pain out of proportion, redness, denies any weakness, or numbness or tingling. Differential diagnosis considered include: acute fracture, renal colic, pyelonephritis, degenerative joint and or disc disease,, cauda equina , AAA, viscus perforation, osteomyelitis or epidural abscess, disc injury/herniation w/radiculopathy, degenerative arthritis, spinal stenosis, trauma, ligamental injury, paraspinal or other muscular strain, chronic pain, osteoarthritis, and critical cord compression. Suspect likely musculoskeletal etiology strain/sprain,/acute exacerbation of chronic low back pain. Patient's straight leg raise test was positive. Right foot PT and DP pulses are 2+, considerable lymphedema however no erythema, ecchymosis, or unilateral abnormalities. No back pain red flags on history or physical. No history of IV substance use, or bony tenderness to palpation, no trauma, no bony tenderness to palpation , afebrile, no CVAT, no urinary symptoms. No bowel or urinary incontinence or retention, no saddle anesthesia, no new/worsening distal weakness, decreased reflexes or foot drop. Patient's UA is positive for leukocytes, is negative, patient is continent, will treat for acute cystitis, she is without CVAT bilaterally. She does not weakness, results were shared with patient from her lumbar x-ray showing degenerative changes, mild s spondylosis and trace rightward spinal curvature with disc height loss between L5 and S1 primarily with multilevel spondylosis. Encourage patient to follow-up with her PCP for referral to physical therapy and treatment beyond today. She was treated in the emergency department with Toradol IM, prednisone p.o., methocarbamol, hydrocodone, lidocaine patch. She was prescribed lidocaine patches, muscle relaxer and prednisone for lumbar radiculopathy secondary to increased activity and moving for the last few days. She was given work. She understands to return emergency department for any new worsening symptoms, numbness or tingling, incontinence, fever, chills or other abnormality. Pt is nontoxic appearing. Patient has soft tissue tenderness to palpation. Pt is neurovascularly intact distally, afebrile, without immunosuppression or evidence of infection, peritoneal signs, hypertensive crisis, incontinence, or menengial signs. <Rodrigo Bishop MD - Last Filed: 12/10/22 07:31> Lab Data Labs: Lab Results 11/25/22 Range/Units 14:47 Urine RBC 0-1/hpf (0-5/HPF) Urine WBC 1-5/hpf (0-5/HPF) Ur Squamous Epith Cells 5-10 /hpf H (0-5/HPF) Urine Bacteria None seen (None) Ur Culture Indicated? Specimen cultured Point of Care Testing Test Results Negative Urine Dip Bedside Urine Glucose Negative Bedside Urine Bilirubin - Negative Bedside Urine Ketone - Negative Urine Specific [place] 1.015 Bedside Urine Occult Blood - Negative Bedside Urine pH 7.0 Bedside Urine Protein - Negative Bedside Urine Urobilinogen - Negative Bedside Urine Nitrite - Negative Bedside Urine Leukocytes + 70 Esterase Discharge Plan Departure Patient Disposition: Home Clinical Impression: Degenerative joint disease of midfoot, Lumbar radiculopathy, right, Acute cystitis Instructions: Acute Cystitis Activity Restrictions/Additional Instructions: *You have been diagnosed with degenerative disc changes of your low back with disc height loss between L5 and S1. Please follow-up with your primary care provider about this pain and ask for referral to physical therapy and if your pain is persistent pursue advanced imaging if your symptoms get worse. Please take your medications with food and water, take a stool softener to prevent constipation. Use muscle relaxers for spasm, take ibuprofen 800 mg every 6-8 hours, Tylenol 1000 mg every 6 hours and use heat with a topical modality of choice. Please rest and avoid exacerbation of this pain. Return for numbness, tingling, incontinence, weakness or severe pain. Your midfoot shows some mild degenerative changes as well but nothing concerning on x-ray. *What to do: *Please continue to take your regular medications as directed. [ x New medication prescriptions sent to your pharmacy: [[facility] ] [ ] New medication written as a paper prescription [ ] No new medications given *Please follow up with your primary care provider in 2-3 days, call for an appointment. Let them know you were seen in the Emergency Department and that we asked that you be seen for follow-up. We will electronically transmit a record of today's note if your PCP is in our system *If you do not have a primary care provider please contact [phone] to establish care with one of the [facility] primary care providers. *Return to Emergency Department if you should have any new, worsening, or concerning symptoms, such as [fever greater than 101F, chills, worsening pain, persistent vomiting or other bothersome symptoms]. Prescriptions: New methocarbamol 750 mg tablet 750 mg PO TID PRN (Reason: muscle spasm) Qty: 20 0RF lidocaine [Lidoderm] 5 % adhesive patch,medicated 1 patch topical DAILY PRN (Reason: pain) Qty: 15 0RF Rx Instructions: leave on most painful area for up to 12 hrs No Action albuterol sulfate 90 mcg/actuation HFA aerosol inhaler 1 inh INHALATION Q4-6H PRN (Reason: shortness of breath) Qty: 18 0RF Label Comments: patient states has on hand...has not had to use it. 05/29/19 meloxicam [Mobic] 15 mg tablet 15 mg PO DAILY Qty: 20 0RF Rx Instructions: not with other NSAIDs diclofenac sodium 1 % gel 4 g topical QID PRN (Reason: knee pain) Qty: 100 0RF Rx Instructions: to back or lower extremities for pain. lidocaine [Lidoderm] 5 % adhesive patch,medicated 1 patch topical DAILY PRN (Reason: back pain) Qty: 15 0RF Rx Instructions: leave on most painful area for up to 12 hrs ibuprofen 600 mg tablet 600 mg PO TID-QID PRN (Reason: pain) Qty: 20 0RF Referrals: Keith Roa MD [Primary Care Provider] - Stand Alone Forms: Patient Portal/API, Work Release Note <Rodrigo Bishop MD - Last Filed: 12/10/22 07:31> Cosign ED Attending Andrewature Attestation: I was immediately available in the department for consultation. ?This documentation has been reviewed and I agree with assessment and plan. Supervised by Rodrigo Bishop MD
[2022-11-25] MEDS: LIDOCAINE PATCH 1 EACH ADH..PATCH TOP (14:42)
[2022-11-25] MEDS: KETOROLAC 30 MG/ML VIAL IM (14:42)
[2022-11-25] MEDS: predniSONE 20 MG TABLET 40 MG PO (14:43)
[2022-11-25] MEDS: cephALEXin 250 MG CAPSULE 1000 MG PO (14:57)
[2022-11-25] MEDS: HYDROCODONE/ACET 5/325 TABLET 1 TAB PO (14:57)
[2022-11-25] MEDS: methocarbamoL 500 MG TABLET 750 MG PO (14:57)
[2022-11-25 15:09] VITALS: BP 160/85; PULSE 75; RESP 15; O2SAT 97
[2022-11-25 15:34] LABS: Bacteria Urine None Seen; Culture Indicated Urine Specimen Cultured; RBC Urine 0-1/HPF (0-5/HPF); Squamous Epithelial Cell Urine 5-10 /HPF (0-5/HPF); WBC Urine 1-5/HPF (0-5/HPF)
== END 2022-11-25 15:15 | disposition home or self-care (01) ==
PROVIDERS: Emergency Provider Nurse Practitioner Critical Care Medicine; PCP Internal Medicine
DX: M19.071 Primary osteoarthritis, right ankle and foot (principal); M54.16 Radiculopathy, lumbar region; N30.00 Acute cystitis without hematuria
CPT/HCPCS: 72100; 73630; 81003; 81015; 81025; 87086; 96372; 99283; J1885

== ENCOUNTER 2023-10-28 05:57 | Emergency (ER) | payer OTHER, MEDICAID, SELFPAY ==
[2023-10-28 06:03] VITALS: O2SAT 86
[2023-10-28 06:07] VITALS: BP 133/70; PULSE 79; O2SAT 98
[2023-10-28 06:15] VITALS: BP 133/70; PULSE 80; RESP 22; TEMP 36.2; O2SAT 98; BMI 56.4
--- NOTE | 2023-10-28 06:18 | DI.US.S_ITS ---
PROCEDURE: US OB <= 14 WEEKS FETUS INDICATIONS: 9 week EGA with vag bleeding OUTSIDE/PRIOR DATING DATA: Last menstrual period (LMP): August 26, 2023. LMP-based estimated date of delivery (ROBERTA): June 01, 2024. First dating scan (date and location): October 28, 2023. Estimated date of delivery (ROBERTA) from first dating scan: June 10, 2024. TECHNIQUE: Real-time scanning was performed of the fetus and maternal pelvic organs, with image documentation. Endovaginal scanning was also performed to better visualize the fetus and maternal ovaries. COMPARISON: None. FINDINGS: Embryo: Single living intrauterine gestation with estimated sonographic gestational age of approximately 7 weeks and 5 days based crown-rump length measurement of 1.4 cm. Estimated gestational age by last menstrual period is approximately 9 weeks and 0 days. Normal yolk sac. No perigestational hemorrhage. Heart rate: 152 beats per minute Maternal organs: Ovaries not visualized. IMPRESSION: Single living intrauterine gestation with estimated sonographic gestational age of approximately 7 weeks and 5 days based off crown-rump length measurement. Estimated gestational age by last menstrual period is approximately 9 weeks and 0 days. No acute abnormalities identified. Recommend routine second trimester anatomy screening survey. We strive to produce accurate, complete, and clear reports of imaging services. To assist us in improving patient care, this report was composed using standard report templates and voice recognition software. Therefore, it may contain abnormal punctuation, insertions and/or omissions. Occasional wrong-word or sound-alike substitutions may occur. Though we review the report and make efforts to correct it, we do recommend that the report be read carefully in proper context to recognize any text inaccuracies. Dictated by: Simone Cole M.D. on 10/28/2023 at 8:04 Approved by: Simone Cole M.D. on 10/28/2023 at 8:07
--- NOTE | 2023-10-28 06:19 | ED_ITS ---
HPI - General Adult General Chief complaint: Abdominal Pain Stated complaint: abd pain 9 weeks Time Seen by Provider: 10/28/23 06:00 Source: patient Mode of arrival: Ambulatory Limitations: no limitations History of Present Illness HPI narrative: Patient is a 38-year-old at approximately 9 weeks EGA secondary to last menstrual period who is here for evaluation of vaginal bleeding and abdominal pain. Patient states that her symptoms started last evening. No vomiting. No fevers. No urinary symptoms. No change in bowel habits. Describes the pain is lower abdomen. Related Data Home Medications Medication Instructions Recorded Confirmed vitamin-ferrous sulfate 1 tab PO DAILY 10/18/23 10/28/23 27 mg iron-folic acid 0.8 mg tablet amoxicillin 875 mg-potassium 1 tab PO BID 10/28/23 10/28/23 clavulanate 125 mg tablet cholecalciferol (vitamin D3) 125 125 mcg PO DAILY 10/28/23 10/28/23 mcg (5,000 unit) tablet Allergies Allergy/AdvReac Type Severity Reaction Status Date / Time latex [LATEX] Allergy Mild Rash Verified 10/28/23 06:13 codeine [CODEINE] AdvReac Severe Nausea/ Verified 10/28/23 06:13 vomiting narcotics AdvReac Severe Vomiting Uncoded 10/18/23 10:33 Review of Systems Constitutional Constitutional: Reports system reviewed and no additional complaints, except as documented Gastrointestinal Gastrointestinal: Reports system reviewed and no additional complaints, except as documented Genitourinary Genitourinary: Reports system reviewed and no additional complaints, except as documented Integumentary/Breasts Skin/Breast: Reports system reviewed and no additional complaints, except as documented Patient History Medical History Right knee pain Tendonitis (03/2017) Eczema (Unknown) Atrial fibrillation (~2000) Surgical History (Updated 10/18/23 @ 10:38 by Ruth Lewis RN) [place] teeth extracted Cyst (03/2017) Family History (Updated 10/18/23 @ 10:40 by Ruth Lewis RN) Brother Afib Father Age: 73 Afib Grandmother Cancer Social History marital status: unmarried,living together number of children: 0 household members: significant other lives independently: Yes caregiver/support person: No housing: apartment pets and animals: Yes (dog, but doesn't live w/ pt) education level: college (some college) occupational status: employed (childcare provider) current occupational exposures/hazards: Yes patrick/taoist: Baptism special patrick needs: No travel history: over 6 months ago seatbelt use: sometimes water heater temp set < 120 deg: Yes working smoke detector in home: Yes fire extinguisher in home: No carbon monox detector in home: Yes firearms in home: No do you feel safe at home: Yes Smoking Status: Never smoker second hand exposure: Yes (s/o smokes, but not around pt) alcohol intake: former (rarely when not ) substance use type: does not use during the past year weight has: remained stable well-balanced diet: daily or most days daily servings fruits/ve-4 caffeine: Yes (occasional [employer] drink) Type(s) of exercise: walking Smoking Status: Never smoker alcohol intake frequency: holidays/special occasions only Substance Use Type: does not use Exam Initial Vital Signs Initial Vital Signs: Vital Signs Pulse Oximetry 86 L 10/28/23 06:03 Const General: cooperative and comfortable HENMT Head: normal to inspection and normocephalic Resp Effort & Inspection: normal respiratory effort Cardio Rate: regular rate GI Inspection: normal to inspection and non-distended Skin General: no rashes or lesions noted Course Orders Ordered: ED Orders 10/28/23 06:18 US OB <= 14 weeks fetus Stat ABO RH Type Stat Basic Metabolic Panel Stat Complete Blood Count AUTO DIFF Stat HCG Quantitative /Beta subunit Stat Vital Signs Vital signs: Vital Signs - 8 hr 10/28/23 06:03 10/28/23 06:07 10/28/23 06:07 Temperature Pulse Rate 79 Respiratory Rate Blood Pressure 133/70 Pulse Oximetry 86 L 98 Oxygen Delivery Method 10/28/23 06:15 Temperature 97.2 F L Pulse Rate 80 Respiratory Rate 22 Blood Pressure 133/70 Pulse Oximetry 98 Oxygen Delivery Method Room Air Medical Decision Making Lab Data 10/28/23 06:30 10/28/23 06:30 Labs: Lab Results 10/28/23 10/28/23 Range/Units 06:30 06:58 WBC 6.2 (4.5-11.0) X10^3/uL RBC 4.60 (4.0-5.2) X10^6/uL Hgb 12.8 (12.0-16.0) g/dL Hct 38.4 (36-46) % MCV 83.5 (80-100) fL MCH 27.9 (26-34) PG MCHC 33.4 (30-36) % RDW 14.6 (11.6-14.8) % Plt Count 168 (150-400) X10^3/uL Neut % (Auto) 68.1 (50-75) % Lymph % (Auto) 25.2 (25-40) % [place] % (Auto) 5.3 (3-14) % Eos % (Auto) 0.9 L (2-4) % Baso % (Auto) 0.5 (0-2) % Neut # (Auto) 4200 (0257-5826) /uL Lymph # (Auto) 1600 (9549-9524) /uL [place] # (Auto) 300 (0-900) /uL Eos # (Auto) 100 (0-450) /uL Baso # (Auto) 0 (0-100) /uL Sodium 135 L (137-145) mmol/L Potassium 3.9 (3.4-5.1) mmol/L Chloride 105 (98-107) mmol/L Carbon Dioxide 24 (22-32) mmol/L BUN 12 (7-17) mg/dL Creatinine 0.59 (0.52-1.04) mg/dL Estimated GFR > 60 (>60) mL/min BUN/Creatinine Ratio 20.3 (6-22) Glucose 104 H (70-100) mg/dL Calcium 9.0 (8.4-10.2) mg/dL HCG, Quant 53718 mIU/mL Urine RBC 5-10/hpf H (0-5/HPF) Urine WBC None seen (0-5/HPF) Ur Squamous Epith Cells 1-5 /hpf (0-5/HPF) Urine Bacteria None seen (None) Ur Culture Indicated? Cult not indicated Blood Type O Positive Urine Dip Bedside Urine Glucose Negative Bedside Urine Bilirubin - Negative Bedside Urine Ketone - Negative Urine Specific [place] 1.020 Bedside Urine Occult Blood + Bedside Urine pH 6.0 Bedside Urine Protein - Negative Bedside Urine Urobilinogen - Negative Bedside Urine Nitrite - Negative Bedside Urine Leukocytes - Negative Esterase Point of care testing: Urine Dip Bedside Urine Glucose Negative Bedside Urine Bilirubin - Negative Bedside Urine Ketone - Negative Urine Specific [place] 1.020 Bedside Urine Occult Blood + Bedside Urine pH 6.0 Bedside Urine Protein - Negative Bedside Urine Urobilinogen - Negative Bedside Urine Nitrite - Negative Bedside Urine Leukocytes - Negative Esterase MDM Narrative Medical decision making narrative: Vaginal bleeding and lower abdominal tenderness. Nine weeks . Labs ordered. Ultrasound ordered. Care turned over to day provider to follow-up and disposition. Discharge Plan Departure Patient Disposition: Home Clinical Impression: Vaginal bleeding affecting early Activity Restrictions/Additional Instructions: Emergency department evaluation today is reassuring. Ultrasound shows a viable 7 week 5 day . I think it is safe to go home, you can use Tylenol as needed for cramping. Follow up as scheduled with your OB provider. If you are having increasing cramping fevers frequent vomiting or heavy bleeding with more than 3 pads per hour for more than an hour recheck in the emergency department. Prescriptions: No Action vit-ferrous sulfat-FA 27 mg iron- 0.8 mg tablet 1 tab PO DAILY amoxicillin-pot clavulanate 875-125 mg tablet 1 tab PO BID cholecalciferol (vitamin D3) 125 mcg (5,000 unit) Tablet 125 mcg PO DAILY Referrals: Keith Roa MD [Primary Care Provider] - Stand Alone Forms: Patient Portal/API, Work Release Note
[2023-10-28 06:30] VITALS: PULSE 69; O2SAT 99
[2023-10-28 06:31] VITALS: BP 104/71; PULSE 74; O2SAT 99
[2023-10-28 06:38] LABS: Add Manual Diff / Slide Review NO; Basophils Absolute Auto 0 /uL (0-100); Basophils Percent Auto 0.5 % (0-2); Eosinophils Absolute Auto 100 /uL (0-450); Eosinophils Percent Auto 0.9 % (2-4); Hematocrit 38.4 % (36-46); Hemoglobin 12.8 g/dL (12.0-16.0); Lymphocytes Absolute Auto 1600 /uL (1100-4500); Lymphocytes Percent Auto 25.2 % (25-40); Mean Corpuscular HGB Conc 33.4 % (30-36); Mean Corpuscular Hemoglobin 27.9 PG (26-34); Mean Corpuscular Volume 83.5 fL (80-100); Monocytes Absolute Auto 300 /uL (0-900); Monocytes Percent Auto 5.3 % (3-14); Neutrophils Absolute Auto 4200 /uL (1500-7000); Neutrophils Percent Auto 68.1 % (50-75); Platelet Count 168 X10^3/uL (150-400); Red Cell Distribution Width 14.6 % (11.6-14.8); White Blood Cell Count 6.2 X10^3/uL (4.5-11.0)
[2023-10-28 06:50] LABS: BUN Creatinine Ratio 20.3 (6-22); Blood Urea Nitrogen 12 mg/dL (7-17); Carbon Dioxide 24 mmol/L (22-32); Chloride 105 mmol/L (98-107); Estimated Glomerular Filt Rate > 60 mL/min (>60); Glucose 104 mg/dL (70-100); HEMOLYSIS < 15 (0-50); Potassium 3.9 mmol/L (3.4-5.1); Sodium 135 mmol/L (137-145)
[2023-10-28 07:18] LABS: Bacteria Urine None Seen; Culture Indicated Urine Cult Not Indicated; RBC Urine 5-10/HPF (0-5/HPF); Squamous Epithelial Cell Urine 1-5 /HPF (0-5/HPF); WBC Urine None Seen (0-5/HPF)
[2023-10-28 07:32] LABS: HCG Quantitative /Beta subunit 20638 mIU/mL
--- NOTE | 2023-10-28 07:35 | ED.PREGNANCY ---
HPI - General Chief complaint: Abdominal Pain Stated complaint: abd pain 9 weeks Time Seen by Provider: 10/28/23 06:00 Source: patient Mode of arrival: Ambulatory Limitations: no limitations History of Present Illness HPI Narrative: This is a 38-year-old female with a history of obesity arrives by private vehicle. Patient is complaining of low pelvic cramping and vaginal spotting that began approximately 6 hours prior to being seen. No fevers nausea or vomiting. No changes in bowel habits and no dysuria. Presently taking Augmentin for otitis. No prior surgical history. She is Rh positive. This is her 1st . Related Data Home Medications Medication Instructions Recorded Confirmed vitamin-ferrous sulfate 1 tab PO DAILY 10/18/23 10/28/23 27 mg iron-folic acid 0.8 mg tablet amoxicillin 875 mg-potassium 1 tab PO BID 10/28/23 10/28/23 clavulanate 125 mg tablet cholecalciferol (vitamin D3) 125 125 mcg PO DAILY 10/28/23 10/28/23 mcg (5,000 unit) tablet Allergies Allergy/AdvReac Type Severity Reaction Status Date / Time latex [LATEX] Allergy Mild Rash Verified 10/28/23 06:13 codeine [CODEINE] AdvReac Severe Nausea/ Verified 10/28/23 06:13 vomiting narcotics AdvReac Severe Vomiting Uncoded 10/18/23 10:33 Exam Initial Vital Signs Initial Vital Signs: Vital Signs Pulse Oximetry 86 L 10/28/23 06:03 Const General: healthy appearing and No acute distress Resp Effort & Inspection: normal respiratory effort Cardio Rate: regular rate Rhythm: regular rhythm GI Palpation: soft, No mass and No tender Auscultation: normal bowel sounds Other: No CVAT Skin General: dry skin and warm Neuro General: patient alert and patient oriented x3 Course Orders Ordered: ED Orders 10/28/23 06:18 US OB <= 14 weeks fetus Stat 10/28/23 06:30 ABO RH Type Stat Basic Metabolic Panel Stat Complete Blood Count AUTO DIFF Stat HCG Quantitative /Beta subunit Stat 10/28/23 06:58 Urine Microscopic Stat Vital Signs Vital signs: Vital Signs - 8 hr 10/28/23 06:03 10/28/23 06:07 10/28/23 06:07 Temperature Pulse Rate 79 Respiratory Rate Blood Pressure 133/70 Pulse Oximetry 86 L 98 Oxygen Delivery Method 10/28/23 06:15 12/28/23 06:30 10/28/23 06:31 Temperature 97.2 F L Pulse Rate 80 69 Respiratory Rate 22 Blood Pressure 133/70 104/71 Pulse Oximetry 98 99 Oxygen Delivery Method Room Air 10/28/23 06:31 Temperature Pulse Rate 74 Respiratory Rate Blood Pressure Pulse Oximetry 99 Oxygen Delivery Method MDM - OB/Uterine Contractions Lab Data Lab results narrative: CBC with diff and CMP are unremarkable. Urinalysis showed a few red cells no white cells no bacteria. Rh positive quant HCG greater than 2000 10/28/23 06:30 10/28/23 06:30 Labs: Lab Results 10/28/23 10/28/23 Range/Units 06:30 06:58 WBC 6.2 (4.5-11.0) X10^3/uL RBC 4.60 (4.0-5.2) X10^6/uL Hgb 12.8 (12.0-16.0) g/dL Hct 38.4 (36-46) % MCV 83.5 (80-100) fL MCH 27.9 (26-34) PG MCHC 33.4 (30-36) % RDW 14.6 (11.6-14.8) % Plt Count 168 (150-400) X10^3/uL Neut % (Auto) 68.1 (50-75) % Lymph % (Auto) 25.2 (25-40) % [place] % (Auto) 5.3 (3-14) % Eos % (Auto) 0.9 L (2-4) % Baso % (Auto) 0.5 (0-2) % Neut # (Auto) 4200 (0280-9271) /uL Lymph # (Auto) 1600 (7450-1102) /uL [place] # (Auto) 300 (0-900) /uL Eos # (Auto) 100 (0-450) /uL Baso # (Auto) 0 (0-100) /uL Sodium 135 L (137-145) mmol/L Potassium 3.9 (3.4-5.1) mmol/L Chloride 105 (98-107) mmol/L Carbon Dioxide 24 (22-32) mmol/L BUN 12 (7-17) mg/dL Creatinine 0.59 (0.52-1.04) mg/dL Estimated GFR > 60 (>60) mL/min BUN/Creatinine Ratio 20.3 (6-22) Glucose 104 H (70-100) mg/dL Calcium 9.0 (8.4-10.2) mg/dL HCG, Quant 66049 mIU/mL Urine RBC 5-10/hpf H (0-5/HPF) Urine WBC None seen (0-5/HPF) Ur Squamous Epith Cells 1-5 /hpf (0-5/HPF) Urine Bacteria None seen (None) Ur Culture Indicated? Cult not indicated Blood Type O Positive Urine Dip Bedside Urine Glucose Negative Bedside Urine Bilirubin - Negative Bedside Urine Ketone - Negative Urine Specific [place] 1.020 Bedside Urine Occult Blood + Bedside Urine pH 6.0 Bedside Urine Protein - Negative Bedside Urine Urobilinogen - Negative Bedside Urine Nitrite - Negative Bedside Urine Leukocytes - Negative Esterase Imaging Data US - TELECOMMUNICATIONS FACILITY EXAMINER: My Impression: Technologist reports a viable 7 week 5 day intrauterine without complication MDM Narrative Medical decision making narrative: 38-year-old female presenting with cramping and spotting in early . Examination is reassuring, she is Rh positive ultrasound showed a viable intrauterine . Patient was counseled that at this point appears to be viable. Indications for return to the emergency department are reviewed she is to follow up with her highway engineering teacher in the coming week as scheduled Discharge Plan Departure Patient Disposition: Home Clinical Impression: Vaginal bleeding affecting early Activity Restrictions/Additional Instructions: Emergency department evaluation today is reassuring. Ultrasound shows a viable 7 week 5 day . I think it is safe to go home, you can use Tylenol as needed for cramping. Follow up as scheduled with your OB provider. If you are having increasing cramping fevers frequent vomiting or heavy bleeding with more than 3 pads per hour for more than an hour recheck in the emergency department. Prescriptions: No Action vit-ferrous sulfat-FA 27 mg iron- 0.8 mg tablet 1 tab PO DAILY amoxicillin-pot clavulanate 875-125 mg tablet 1 tab PO BID cholecalciferol (vitamin D3) 125 mcg (5,000 unit) Tablet 125 mcg PO DAILY Referrals: Keith Roa MD [Primary Care Provider] - Stand Alone Forms: Patient Portal/API
[2023-10-28 07:44] VITALS: BP 108/70; PULSE 62; RESP 20; TEMP 37; O2SAT 98
== END 2023-10-28 07:46 | disposition home or self-care (01) ==
PROVIDERS: Emergency Medicine; Emergency Provider Emergency Medicine; PCP Internal Medicine
DX: O20.9 Hemorrhage in early pregnancy, unspecified (principal); Z3A.09 9 weeks gestation of pregnancy
CPT/HCPCS: 36415; 76801; 76817; 80048; 81003; 81015; 84702; 85025; 86900; 86901; 99283; 99284

== ENCOUNTER → 2023-11-04 09:03 | Outpatient (CLI) | payer OTHER, MEDICAID, SELFPAY ==
[2023-11-04 09:47] LABS: Add Manual Diff / Slide Review NO; Basophils Absolute Auto 0 /uL (0-100); Basophils Percent Auto 0.8 % (0-2); Eosinophils Absolute Auto 0 /uL (0-450); Eosinophils Percent Auto 0.8 % (2-4); Hematocrit 38.9 % (36-46); Hemoglobin 12.8 g/dL (12.0-16.0); Lymphocytes Absolute Auto 900 /uL (1100-4500); Lymphocytes Percent Auto 16.5 % (25-40); Mean Corpuscular HGB Conc 32.9 % (30-36); Mean Corpuscular Hemoglobin 27.3 PG (26-34); Mean Corpuscular Volume 82.7 fL (80-100); Monocytes Absolute Auto 400 /uL (0-900); Monocytes Percent Auto 6.5 % (3-14); Neutrophils Absolute Auto 4300 /uL (1500-7000); Neutrophils Percent Auto 75.4 % (50-75); Platelet Count 173 X10^3/uL (150-400); Red Blood Cell Count 4.71 X10^6/uL (4.0-5.2); Red Cell Distribution Width 14.3 % (11.6-14.8); White Blood Cell Count 5.6 X10^3/uL (4.5-11.0)
[2023-11-04 13:04] LABS: Hemoglobin A1C% w Est Avg Glu 5.5 % (4.0-6.0)
[2023-11-04 20:12] LABS: HIV 1 & 2 Ab/Ag 4th Gen Combo NEGATIVE (NEGATIVE); Hepatitis B Surface Antigen NEGATIVE s/c (NEGATIVE)
[2023-11-05 06:09] LABS: RPR Screen Non Reactive (Non Reactive)
[2023-11-05 11:17] LABS: Varicella IgG Antibody 3901 index (Immune >165)
[2023-11-05 18:24] LABS: Hep C Virus Ab w/Reflex Quant NEGATIVE s/c (NEGATIVE)
== END ==
PROVIDERS: PCP Internal Medicine; Referring Provider Student in an Organized Health Care Education/Training Program; Visit Provider Student in an Organized Health Care Education/Training Program
DX: O09.90 Supervision of high risk pregnancy, unspecified, unspecified trimester (principal); R73.03 Prediabetes
CPT/HCPCS: 36415; 80055; 83036; 86787; 86803; 86850; 86900; 86901; 87086; 87389

== ENCOUNTER → 2023-11-10 14:58 | Outpatient (CLI) | payer OTHER, MEDICAID, SELFPAY ==
--- NOTE | 2023-11-10 | DI.US.S_ITS ---
PROCEDURE: US OB <= 14 WEEKS FETUS INDICATIONS: BLEEDING OUTSIDE/PRIOR DATING DATA: Last menstrual period (LMP): 08/26/2023. LMP-based estimated date of delivery (ROBERTA): 06/01/2024. First dating scan (date and location): 10/20/2023. Estimated date of delivery (ROBERTA) from first dating scan: 06/10/2024. TECHNIQUE: Real-time scanning was performed of the fetus and maternal pelvic organs, with image documentation. Endovaginal scanning was also performed to better visualize the fetus and maternal ovaries. COMPARISON: [facility], US, US OB <= 14 WEEKS FETUS, 11/04/2023, 8:30. FINDINGS: Single live intrauterine is identified with crown-rump length measuring 2.4 cm corresponding to 9 weeks 1 day. This corresponds to 9 weeks 4 days from initial ultrasound. heart rate is identified at 169 beats per minute. Ovaries are not visualized. IMPRESSION: Single live intrauterine with gestational age corresponding to 9 weeks 1 day. Recommend follow-up imaging at 20-22 weeks for dates and anatomy. We strive to produce accurate, complete, and clear reports of imaging services. To assist us in improving patient care, this report was composed using standard report templates and voice recognition software. Therefore, it may contain abnormal punctuation, insertions and/or omissions. Occasional wrong-word or sound-alike substitutions may occur. Though we review the report and make efforts to correct it, we do recommend that the report be read carefully in proper context to recognize any text inaccuracies. Dictated by: Staci Paz M.D. on 11/10/2023 at 16:47 Approved by: Staci Paz M.D. on 11/10/2023 at 16:48
== END ==
PROVIDERS: PCP Internal Medicine; Referring Provider Student in an Organized Health Care Education/Training Program; Visit Provider Student in an Organized Health Care Education/Training Program
DX: O20.9 Hemorrhage in early pregnancy, unspecified (principal); Z3A.09 9 weeks gestation of pregnancy
CPT/HCPCS: 76801; 76817

== ENCOUNTER → 2023-11-25 09:57 | Outpatient (CLI) | payer OTHER, MEDICAID, SELFPAY | PROVIDERS: PCP Internal Medicine; Referring Provider Student in an Organized Health Care Education/Training Program; Visit Provider Student in an Organized Health Care Education/Training Program | DX: Z34.01 Encounter for supervision of normal first pregnancy, first trimester (principal) | CPT/HCPCS: 36415 ==

== ENCOUNTER 2023-11-27 17:16 | Emergency (ER) | payer OTHER, MEDICAID, SELFPAY ==
--- NOTE | 2023-11-27 17:18 | DI.US.S_ITS ---
PROCEDURE: US OB <= 14 WEEKS FETUS INDICATIONS: 12 weeks ega with bleeding OUTSIDE/PRIOR DATING DATA: Last menstrual period (LMP): 08/26/2023. LMP-based estimated date of delivery (ROBERTA): 06/01/2024. First dating scan (date and location): 10/20/2023. Estimated date of delivery (ROBERTA) from first dating scan: 06/10/2024. TECHNIQUE: Real-time scanning was performed of the fetus and maternal pelvic organs, with image documentation. Endovaginal scanning was also performed to better visualize the fetus and maternal ovaries. COMPARISON: [facility], OB <= 14 WEEKS FETUS, 11/10/2023, 15:14. [facility], OB <= 14 WEEKS FETUS, 11/04/2023, 8:30. [facility], US OB <= 14 WEEKS FETUS, 10/28/2023, 6:52. [facility], OB <= 14 WEEKS FETUS, 11/25/2023, 9:52. FINDINGS: Embryo: A single live intrauterine is seen. The measured heart rate is 171 beats per minute. The crown-rump length measures 5.2 cm, corresponding to an estimated gestational age of 11 weeks 6 days. It is too early for detailed anatomic assessment. By visual inspection, the amount of amniotic fluid is within normal limits. No significant findings of subchorionic/perigestational hemorrhage are seen. Maternal organs: No significant adnexal abnormality can be seen. IMPRESSION: A single live intrauterine is seen. Normal interval growth when compared to the prior ultrasound examination. No significant abnormality is seen. We strive to produce accurate, complete, and clear reports of imaging services. To assist us in improving patient care, this report was composed using standard report templates and voice recognition software. Therefore, it may contain abnormal punctuation, insertions and/or omissions. Occasional wrong-word or sound-alike substitutions may occur. Though we review the report and make efforts to correct it, we do recommend that the report be read carefully in proper context to recognize any text inaccuracies. Dictated by: Morgan Urbina M.D. on 11/27/2023 at 18:13 Approved by: Morgan Urbina M.D. on 11/27/2023 at 18:14
[2023-11-27 17:21] VITALS: BP 124/77; PULSE 87; RESP 18; TEMP 36.7; O2SAT 98; BMI 54.8
[2023-11-27 18:00] LABS: Add Manual Diff / Slide Review NO; Basophils Absolute Auto 0 /uL (0-100); Basophils Percent Auto 0.5 % (0-2); Eosinophils Absolute Auto 0 /uL (0-450); Eosinophils Percent Auto 0.4 % (2-4); Hematocrit 39.2 % (36-46); Hemoglobin 13.2 g/dL (12.0-16.0); Lymphocytes Absolute Auto 1100 /uL (1100-4500); Lymphocytes Percent Auto 16.4 % (25-40); Mean Corpuscular HGB Conc 33.8 % (30-36); Mean Corpuscular Hemoglobin 27.9 PG (26-34); Mean Corpuscular Volume 82.5 fL (80-100); Monocytes Absolute Auto 400 /uL (0-900); Monocytes Percent Auto 5.6 % (3-14); Neutrophils Absolute Auto 5100 /uL (1500-7000); Neutrophils Percent Auto 77.1 % (50-75); Platelet Count 142 X10^3/uL (150-400); Red Blood Cell Count 4.75 X10^6/uL (4.0-5.2); Red Cell Distribution Width 14.3 % (11.6-14.8); White Blood Cell Count 6.6 X10^3/uL (4.5-11.0)
--- NOTE | 2023-11-27 18:13 | ED.PREGNANCY ---
HPI - General Chief complaint: Vaginal Bleeding Stated complaint: vaginal bleeding 12 wks Time Seen by Provider: 11/27/23 17:47 Source: patient Mode of arrival: Ambulatory Limitations: no limitations History of Present Illness HPI Narrative: Patient is a 38-year-old female presenting today with abdominal pain and vaginal bleeding. She is followed by Dr. Leroy GREENWOOD. She reports she has had some abdominal cramping and bleeding. She reports that today she passed like quarter size blood clot which was atypical for her. Previously she has only had blood while wiping. She denies any nausea vomiting or fever. She reports that today she had more blood than normal. She has had previous ultrasounds which show an IUP. Related Data Home Medications Medication Instructions Recorded Confirmed vitamin-ferrous sulfate 1 tab PO DAILY 10/18/23 11/25/23 27 mg iron-folic acid 0.8 mg tablet amoxicillin 875 mg-potassium 1 tab PO BID 10/28/23 11/25/23 clavulanate 125 mg tablet cholecalciferol (vitamin D3) 125 125 mcg PO DAILY 10/28/23 11/25/23 mcg (5,000 unit) tablet Allergies Allergy/AdvReac Type Severity Reaction Status Date / Time latex [LATEX] Allergy Mild Rash Verified 11/25/23 09:19 codeine [CODEINE] AdvReac Severe Nausea/ Verified 11/25/23 09:19 vomiting narcotics AdvReac Severe Vomiting Uncoded 11/25/23 09:19 Exam Initial Vital Signs Initial Vital Signs: Vital Signs Temperature 98.1 F 11/27/23 17:21 Pulse Rate 87 11/27/23 17:21 Respiratory Rate 18 11/27/23 17:21 Blood Pressure 124/77 11/27/23 17:21 Pulse Oximetry 98 11/27/23 17:21 Oxygen Delivery Method Room Air 11/27/23 17:21 GENERAL: Alert 38-year-old and in no acute distress. HEENT: Head atraumatic,EOMI, pupils reactive, face symmetric, moist mucous membranes CARDIOVASCULAR: Regular rate and rhythm without murmurs, rubs or gallops. RESPIRATORY: Breath sounds equal bilaterally, no wheezes rales or rhonchi. ABDOMEN: Soft minimal lower abdominal tenderness no significant right lower quadrant tenderness negative Contreras's sign no left lower quadrant tenderness : No CVA tenderness EXTREMITIES: Normal range of motion, no clubbing or edema. Neurovascularly intact NEUROLOGICAL: Alert and oriented x4.Normal gait and speech. SKIN: Warm, dry, no laceration, no petechiae, no rashes or lesions. Course Orders Ordered: ED Orders 11/27/23 17:18 US OB <= 14 weeks fetus Stat 11/27/23 17:35 Basic Metabolic Panel Stat Complete Blood Count AUTO DIFF Stat HCG Quantitative /Beta subunit Stat 11/27/23 19:43 Urine Microscopic Stat Vital Signs Vital signs: Vital Signs - 8 hr 11/27/23 19:35 Temperature 98.7 F Pulse Rate 84 Respiratory Rate 16 Blood Pressure 118/71 Pulse Oximetry 100 Oxygen Delivery Method Room Air MDM - OB/Uterine Contractions Lab Data 11/27/23 17:35 11/27/23 17:35 Labs: Lab Results 11/27/23 11/27/23 Range/Units 17:35 19:43 WBC 6.6 (4.5-11.0) X10^3/uL RBC 4.75 (4.0-5.2) X10^6/uL Hgb 13.2 (12.0-16.0) g/dL Hct 39.2 (36-46) % MCV 82.5 (80-100) fL MCH 27.9 (26-34) PG MCHC 33.8 (30-36) % RDW 14.3 (11.6-14.8) % Plt Count 142 L (150-400) X10^3/uL Neut % (Auto) 77.1 H (50-75) % Lymph % (Auto) 16.4 L (25-40) % [place] % (Auto) 5.6 (3-14) % Eos % (Auto) 0.4 L (2-4) % Baso % (Auto) 0.5 (0-2) % Neut # (Auto) 5100 (5851-6558) /uL Lymph # (Auto) 1100 (5804-7422) /uL [place] # (Auto) 400 (0-900) /uL Eos # (Auto) 0 (0-450) /uL Baso # (Auto) 0 (0-100) /uL Sodium 133 L (137-145) mmol/L Potassium 4.0 (3.4-5.1) mmol/L Chloride 102 (98-107) mmol/L Carbon Dioxide 23 (22-32) mmol/L BUN 11 (7-17) mg/dL Creatinine 0.52 (0.52-1.04) mg/dL Estimated GFR > 60 (>60) mL/min BUN/Creatinine Ratio 21.2 (6-22) Glucose 97 (70-100) mg/dL Calcium 9.3 (8.4-10.2) mg/dL HCG, Quant 15459 mIU/mL Urine RBC 10-30/hpf H (0-5/HPF) Urine WBC 1-5/hpf (0-5/HPF) Ur Squamous Epith Cells 0-1 /hpf (0-5/HPF) Urine Bacteria None seen (None) Ur Culture Indicated? Cult not indicated Vol Urine Centrifuged 10ml (spun) Urine Dip Bedside Urine Glucose Negative Bedside Urine Bilirubin - Negative Bedside Urine Ketone ++ 40 Urine Specific [place] 1.015 Bedside Urine Occult Blood +++ Bedside Urine pH 6.0 Bedside Urine Protein - Negative Bedside Urine Urobilinogen - Negative Bedside Urine Nitrite - Negative Bedside Urine Leukocytes +/- 15 Esterase Imaging Data US - OB: Radiologist's Impression: PROCEDURE: US OB <= 14 WEEKS FETUS INDICATIONS: 12 weeks ega with bleeding OUTSIDE/PRIOR DATING DATA: Last menstrual period (LMP): 08/26/2023. LMP-based estimated date of delivery (ROBERTA): 06/01/2024. First dating scan (date and location): 10/20/2023. Estimated date of delivery (ROBERTA) from first dating scan: 06/10/2024. TECHNIQUE: Real-time scanning was performed of the fetus and maternal pelvic organs, with image documentation. Endovaginal scanning was also performed to better visualize the fetus and maternal ovaries. COMPARISON: [facility] OB <= 14 WEEKS FETUS, 11/10/2023, 15:14. [facility] OB <= 14 WEEKS FETUS, 11/04/2023, 8:30. [facility] OB <= 14 WEEKS FETUS, 10/28/2023, 6:52. [facility] OB <= 14 WEEKS FETUS, 11/25/2023, 9:52. FINDINGS: Embryo: A single live intrauterine is seen. The measured heart rate is 171 beats per minute. The crown-rump length measures 5.2 cm, corresponding to an estimated gestational age of 11 weeks 6 days. It is too early for detailed anatomic assessment. By visual inspection, the amount of amniotic fluid is within normal limits. No significant findings of subchorionic/perigestational hemorrhage are seen. Maternal organs: No significant adnexal abnormality can be seen. IMPRESSION: A single live intrauterine is seen. Normal interval growth when compared to the prior ultrasound examination. No significant abnormality is seen. We strive to produce accurate, complete, and clear reports of imaging services. To assist us in improving patient care, this report was composed using standard report templates and voice recognition software. Therefore, it may contain abnormal punctuation, insertions and/or omissions. Occasional wrong-word or sound-alike substitutions may occur. Though we review the report and make efforts to correct it, we do recommend that the report be read carefully in proper context to recognize any text inaccuracies. Dictated by: Morgan Urbina M.D. on 11/27/2023 at 18:13 MDM Narrative Medical decision making narrative: Patient 38-year-old female presenting today with vaginal bleeding. She has had some spotting but increased bleeding with blood clots today. Blood work has been reviewed she is Rh positive no leukocytosis or anemia, no electrolyte abnormality no evidence of UTI, hCG is 50,856 Ultrasound reviewed shows IUP without subchorionic hemorrhage or cause of bleeding Discussed pelvic rest and follow-up with OBGYN. Discharge Plan Departure Patient Disposition: Home Clinical Impression: Vaginal bleeding during Instructions: DI for Vaginal Bleeding During Activity Restrictions/Additional Instructions: HCG 58,850 *You have been diagnosed with vaginal bleeding 1st trimester *What to do: At this time pelvic rest. Nothing in or out of vagina. May elevate legs. Will need repeat hCG in 48 hours. Please call your OBGYN about this. At this time ultrasound is overall reassuring without obvious cause *Continue to take medications as directed Tylenol 1000 mg every 6 hours if needed for [id number] pain *Follow up with your primary care provider in 2-3 days or call [phone] Dr. Harper *Return to ER if you should have increasing pain increasing bleeding inability to tolerate fluids or any new, worsening or concerning symptoms Prescriptions: No Action vit-ferrous sulfat-FA 27 mg iron- 0.8 mg tablet 1 tab PO DAILY amoxicillin-pot clavulanate 875-125 mg tablet 1 tab PO BID cholecalciferol (vitamin D3) 125 mcg (5,000 unit) Tablet 125 mcg PO DAILY Referrals: Keith Roa MD [Primary Care Provider] - Stand Alone Forms: Patient Portal/API
[2023-11-27 18:21] LABS: BUN Creatinine Ratio 21.2 (6-22); Blood Urea Nitrogen 11 mg/dL (7-17); Calcium 9.3 mg/dL (8.4-10.2); Carbon Dioxide 23 mmol/L (22-32); Chloride 102 mmol/L (98-107); Estimated Glomerular Filt Rate > 60 mL/min (>60); Glucose 97 mg/dL (70-100); HEMOLYSIS 18 (0-50); Sodium 133 mmol/L (137-145)
[2023-11-27 19:01] LABS: HCG Quantitative /Beta subunit 58856 mIU/mL
[2023-11-27 19:35] VITALS: BP 118/71; PULSE 84; RESP 16; TEMP 37.1; O2SAT 100
[2023-11-27 20:20] LABS: Bacteria Urine None Seen; RBC Urine 10-30/HPF (0-5/HPF); Squamous Epithelial Cell Urine 0-1 /HPF (0-5/HPF); Urine Volume 10mL (spun); WBC Urine 1-5/HPF (0-5/HPF)
[2023-11-27 20:21] LABS: Culture Indicated Urine Cult Not Indicated
== END 2023-11-27 19:53 | disposition home or self-care (01) ==
PROVIDERS: Emergency Medicine; Emergency Provider Emergency Medicine; PCP Internal Medicine
DX: O46.91 Antepartum hemorrhage, unspecified, first trimester (principal); Z3A.12 12 weeks gestation of pregnancy
CPT/HCPCS: 36415; 76801; 76817; 80048; 81003; 81015; 84702; 85025; 99283

== ENCOUNTER 2023-12-03 03:01 | Emergency (ER) | payer OTHER, MEDICAID, SELFPAY ==
[2023-12-03 03:11] VITALS: PULSE 72; O2SAT 98
--- NOTE | 2023-12-03 03:11 | ED_ITS ---
HPI - Female Genitourinary General Chief complaint: Vaginal Bleeding Stated complaint: 12WEEKS 5 DAYS BLEEDING Time Seen by Provider: 12/03/23 03:02 History of Present Illness HPI Narrative: at 12wks gestation presents for vaginal bleeding and cramping. Seen 11/27/23 for same, no cause of bleeding found. Patient states she passed a large amount of blood in the bathtub and has 8/10 cramping pain. Significant other at bedside insisting we have to check on the baby Related Data Home Medications Medication Instructions Recorded Confirmed vitamin-ferrous sulfate 1 tab PO DAILY 10/18/23 11/25/23 27 mg iron-folic acid 0.8 mg tablet amoxicillin 875 mg-potassium 1 tab PO BID 10/28/23 11/25/23 clavulanate 125 mg tablet cholecalciferol (vitamin D3) 125 125 mcg PO DAILY 10/28/23 11/25/23 mcg (5,000 unit) tablet Previous Rx's Medication Instructions Recorded ondansetron 4 mg disintegrating 4 mg PO Q8H PRN nausea and 12/03/23 tablet vomiting #30 tabs tramadol 50 mg tablet 50 mg PO Q8H PRN pain #14 tabs 12/03/23 Allergies Allergy/AdvReac Type Severity Reaction Status Date / Time latex [LATEX] Allergy Mild Rash Verified 11/25/23 09:19 codeine [CODEINE] AdvReac Severe Nausea/ Verified 11/25/23 09:19 vomiting narcotics AdvReac Severe Vomiting Uncoded 11/25/23 09:19 Review of Systems Review of Systems Narrative: Negative except as noted above Patient History Medical History Right knee pain Tendonitis (03/2017) Eczema (Unknown) Atrial fibrillation (~2000) Surgical History [place] teeth extracted Cyst (03/2017) Family History Brother Afib Father Age: 73 Afib Grandmother Cancer alcohol intake frequency: holidays/special occasions only Substance Use Type: does not use Exam Initial Vital Signs Initial Vital Signs: Vital Signs Pulse Rate 72 12/03/23 03:11 Pulse Oximetry 98 12/03/23 03:11 Oxygen Delivery Method Room Air 12/03/23 03:11 Const: Awake, alert, uncomfortable, in pain, lying on her side Cardiac: regular rate, regular rhythm RESP: unlabored, clear bilaterally, no wheezing GI: soft, obese, no palpable uterus Skin: Warm, Dry, intact, no rashes Neuro: AO x3, CN II-XII grossly intact, moves all extremities Course Orders Ordered: ED Orders 12/03/23 03:13 BMP [Basic Metabolic Panel] Stat CBC Auto Diff [Complete Blood Count AUTO DIFF] Stat HCG Quantitative /Beta subunit Stat 12/03/23 03:16 OB <= 14 weeks fetus Stat Discontinued Medications Acetaminophen (Ofirmev) 1,000 mg in 100 mls @ 400 mls/hr IV NOW ONE Stop: 12/03/23 03:29 Last Admin: 12/03/23 03:33 Dose: Not Given Vital Signs Vital signs: Vital Signs - 8 hr 12/03/23 03:11 12/03/23 03:14 Temperature 98 F Pulse Rate 72 74 Respiratory Rate 20 Blood Pressure 171/67 H Pulse Oximetry 98 99 Oxygen Delivery Method Room Air Room Air MDM - Female Genitourinary Lab Data 12/03/23 03:29 12/03/23 03:29 Labs: Lab Results 12/03/23 Range/Units 03:29 WBC 7.1 (4.5-11.0) X10^3/uL RBC 4.75 (4.0-5.2) X10^6/uL Hgb 13.0 (12.0-16.0) g/dL Hct 39.2 (36-46) % MCV 82.5 (80-100) fL MCH 27.4 (26-34) PG MCHC 33.2 (30-36) % RDW 14.7 (11.6-14.8) % Plt Count 134 L (150-400) X10^3/uL Neut % (Auto) 68.3 (50-75) % Lymph % (Auto) 25.1 (25-40) % [place] % (Auto) 5.4 (3-14) % Eos % (Auto) 0.5 L (2-4) % Baso % (Auto) 0.7 (0-2) % Neut # (Auto) 4900 (7819-7198) /uL Lymph # (Auto) 1800 (9991-2392) /uL [place] # (Auto) 400 (0-900) /uL Eos # (Auto) 0 (0-450) /uL Baso # (Auto) 100 (0-100) /uL Sodium 134 L (137-145) mmol/L Potassium 4.1 (3.4-5.1) mmol/L Chloride 106 (98-107) mmol/L Carbon Dioxide 22 (22-32) mmol/L BUN 11 (7-17) mg/dL Creatinine 0.56 (0.52-1.04) mg/dL Estimated GFR > 60 (>60) mL/min BUN/Creatinine Ratio 19.6 (6-22) Glucose 107 H (70-100) mg/dL Calcium 8.9 (8.4-10.2) mg/dL MDM Narrative Medical decision making narrative: Patient is uncomfortable, with significant worsening vaginal bleeding in early . Concern is for miscarriage. Patient is Rh positive from previous pregnancies. We will order laboratory work, hCG quant, ultrasound Laboratory work is reviewed. Hemoglobin 13.0. Ultrasound without heartbeat consistent with demise. Patient, significant other, and father updated at bedside. Pain medications and nausea medications sent to pharmacy of choice. Close OBGYN followup advised. #254: Ultrasound for Patients with Abdominal Pain [x] The patient is and presents with abdominal pain or vaginal bleeding. A trans-abdominal or trans-vaginal ultrasound was performed and the location is documented. [SATISFIES MIPS PERFORMANCE] [] The patient is and presents with abdominal pain or vaginal bleeding. A trans-abdominal or trans-vaginal ultrasound was NOT performed because [] (ex. patient has visited the ED multiple times in the last 72 hours, patient has documented intrauterine ) [MIPS PERFORMANCE EXCEPTION/EXCLUSION] [] The patient is and presents with abdominal pain or vaginal bleeding. A trans-abdominal or trans-vaginal ultrasound was NOT performed, no reason documented. [DOES NOT SATISFY MIPS PERFORMANCE] Discharge Plan Departure Patient Disposition: Home Clinical Impression: Incomplete miscarriage, Type O blood, Rh positive Instructions: DI for Miscarriage Prescriptions: New tramadol 50 mg tablet 50 mg PO Q8H PRN (Reason: pain) Qty: 14 0RF ondansetron 4 mg tablet,disintegrating 4 mg PO Q8H PRN (Reason: nausea and vomiting) Qty: 30 0RF No Action vit-ferrous sulfat-FA 27 mg iron- 0.8 mg tablet 1 tab PO DAILY amoxicillin-pot clavulanate 875-125 mg tablet 1 tab PO BID cholecalciferol (vitamin D3) 125 mcg (5,000 unit) Tablet 125 mcg PO DAILY Referrals: Keith Roa MD [Primary Care Provider] - Michelle Harper DO [Physician] - Stand Alone Forms: Patient Portal/API
[2023-12-03 03:14] VITALS: BP 171/67; PULSE 74; RESP 20; TEMP 36.6; O2SAT 99; BMI 54.8
--- NOTE | 2023-12-03 03:16 | DI.US.S_ITS ---
PROCEDURE: US OB <= 14 WEEKS FETUS INDICATIONS: VAG BLEEDING/CRAMPING OUTSIDE/PRIOR DATING DATA: Last menstrual period (LMP): 08/26/2023. LMP-based estimated date of delivery (ROBERTA): 06/01/2024. First dating scan (date and location): 10/28/2023. Estimated date of delivery (ROBERTA) from first dating scan: 06/10/2024. TECHNIQUE: Real-time scanning was performed of the fetus and maternal pelvic organs, with image documentation. Endovaginal scanning was also performed to better visualize the fetus and maternal ovaries. COMPARISON: [facility], US, US OB <= 14 WEEKS FETUS, 11/27/2023, 18:00. FINDINGS: Embryo: No definite embryo is seen. There is hypoechoic structure within the lower uterine segment which may represent tissue. Heart rate: Not identified Maternal organs: Cervix is closed IMPRESSION: Hypoechoic structure within the lower uterine segment likely representing tissue without cardiac activity. Findings are compatible with demise. Findings are concordant with preliminary interpretation provided by [facility]. We strive to produce accurate, complete, and clear reports of imaging services. To assist us in improving patient care, this report was composed using standard report templates and voice recognition software. Therefore, it may contain abnormal punctuation, insertions and/or omissions. Occasional wrong-word or sound-alike substitutions may occur. Though we review the report and make efforts to correct it, we do recommend that the report be read carefully in proper context to recognize any text inaccuracies. Dictated by: Hugh Solano M.D. on 12/03/2023 at 8:12 Approved by: Hugh Solano M.D. on 12/03/2023 at 8:18
[2023-12-03 03:41] LABS: Add Manual Diff / Slide Review NO; Basophils Absolute Auto 100 /uL (0-100); Basophils Percent Auto 0.7 % (0-2); Eosinophils Absolute Auto 0 /uL (0-450); Eosinophils Percent Auto 0.5 % (2-4); Hematocrit 39.2 % (36-46); Lymphocytes Absolute Auto 1800 /uL (1100-4500); Lymphocytes Percent Auto 25.1 % (25-40); Mean Corpuscular HGB Conc 33.2 % (30-36); Mean Corpuscular Hemoglobin 27.4 PG (26-34); Mean Corpuscular Volume 82.5 fL (80-100); Monocytes Absolute Auto 400 /uL (0-900); Monocytes Percent Auto 5.4 % (3-14); Neutrophils Absolute Auto 4900 /uL (1500-7000); Neutrophils Percent Auto 68.3 % (50-75); Platelet Count 134 X10^3/uL (150-400); Red Blood Cell Count 4.75 X10^6/uL (4.0-5.2); Red Cell Distribution Width 14.7 % (11.6-14.8); White Blood Cell Count 7.1 X10^3/uL (4.5-11.0)
[2023-12-03 03:53] LABS: BUN Creatinine Ratio 19.6 (6-22); Blood Urea Nitrogen 11 mg/dL (7-17); Calcium 8.9 mg/dL (8.4-10.2); Carbon Dioxide 22 mmol/L (22-32); Chloride 106 mmol/L (98-107); Estimated Glomerular Filt Rate > 60 mL/min (>60); Glucose 107 mg/dL (70-100); HEMOLYSIS < 15 (0-50); Potassium 4.1 mmol/L (3.4-5.1); Sodium 134 mmol/L (137-145)
[2023-12-03 03:58] VITALS: PULSE 63; O2SAT 100
[2023-12-03 03:59] VITALS: BP 139/80; PULSE 71; O2SAT 100
[2023-12-03 04:00] VITALS: BP 143/90; PULSE 74; O2SAT 100
[2023-12-03 04:35] LABS: HCG Quantitative /Beta subunit 42973 mIU/mL
== END 2023-12-03 05:48 | disposition home or self-care (01) ==
PROVIDERS: Emergency Provider Emergency Medicine; PCP Internal Medicine
DX: O03.4 Incomplete spontaneous abortion without complication (principal); Z67.40 Type O blood, Rh positive
CPT/HCPCS: 36415; 76801; 76817; 80048; 84702; 85025; 99283; 99284

== ENCOUNTER 2023-12-04 19:08 | Emergency (ER) | payer OTHER, MEDICAID, SELFPAY ==
[2023-12-04] VITALS (7 sets, daily range): BP systolic 117–126; BP diastolic 64–73; PULSE 69–92; RESP 17; TEMP 36.9; O2SAT 99–100; BMI 54.8
[2023-12-04 19:29] LABS: Add Manual Diff / Slide Review NO; Basophils Absolute Auto 0 /uL (0-100); Basophils Percent Auto 0.5 % (0-2); Eosinophils Absolute Auto 0 /uL (0-450); Eosinophils Percent Auto 0.4 % (2-4); Hematocrit 39.8 % (36-46); Hemoglobin 13.4 g/dL (12.0-16.0); Lymphocytes Absolute Auto 1600 /uL (1100-4500); Lymphocytes Percent Auto 18.3 % (25-40); Mean Corpuscular HGB Conc 33.8 % (30-36); Mean Corpuscular Hemoglobin 28.2 PG (26-34); Mean Corpuscular Volume 83.5 fL (80-100); Monocytes Absolute Auto 500 /uL (0-900); Monocytes Percent Auto 5.4 % (3-14); Neutrophils Absolute Auto 6800 /uL (1500-7000); Neutrophils Percent Auto 75.4 % (50-75); Platelet Count 165 X10^3/uL (150-400); Red Blood Cell Count 4.77 X10^6/uL (4.0-5.2); Red Cell Distribution Width 14.6 % (11.6-14.8)
--- NOTE | 2023-12-04 19:57 | ED_ITS ---
HPI - General Chief complaint: OB/Uterine Contractions Stated complaint: [facility] sent for blood loss Time Seen by Provider: 12/04/23 19:11 Source: patient Mode of arrival: Ambulatory Limitations: no limitations History of Present Illness HPI Narrative: O-positive patient with miscarriage as of last night. Passing products of conception late last night. She has some brisk bleeding today went to urgent care to get a work note but when she reported saturating pad a couple of times in 30-60 minutes they suggested she come to the ED for more complete evaluation. She denies lightheadedness. She endorses some vague abdominal tenderness. She endorses vaginal bleeding but does not think it is excessive. No fever some vomiting last night none today. No URI symptoms. She really does not want any further workup today she really just wants her work note. Related Data Home Medications Medication Instructions Recorded Confirmed vitamin-ferrous sulfate 1 tab PO DAILY 10/18/23 11/25/23 27 mg iron-folic acid 0.8 mg tablet cholecalciferol (vitamin D3) 125 125 mcg PO DAILY 10/28/23 11/25/23 mcg (5,000 unit) tablet Previous Rx's Medication Instructions Recorded ondansetron 4 mg disintegrating 4 mg PO Q8H PRN nausea and 12/03/23 tablet vomiting #30 tabs Allergies Allergy/AdvReac Type Severity Reaction Status Date / Time latex [LATEX] Allergy Mild Rash Verified 11/25/23 09:19 codeine [CODEINE] AdvReac Severe Nausea/ Verified 12/04/23 18:55 vomiting narcotics AdvReac Severe Vomiting Uncoded 12/04/23 18:55 Exam Narrative Exam Narrative: GENERAL: Alert, cooperative and in no distress. HEAD: Atraumatic. Normocephalic. EYES: Sclera are clear without icterus. Extraocular movements are full. ENT: No rhinorrhea. NECK: Supple. Full range of motion. CARDIOVASCULAR: Normal rate and rhythm without murmur gallop or rub. Peripheral edema RESPIRATORY: Clear to auscultation. Breath sounds equal bilaterally. No wheezes, rales, or rhonchi. GASTROINTESTINAL: Abdomen soft, mild diffuse tenderness without guarding EXTREMITIES: No edema, full range of motion. No obvious trauma. BACK: Normal inspection NEURO: Nonfocal examination, normal speech SKIN: No rash or erythema of visible areas PSYCH: Normally oriented. Normal range of affect. Appropriate behavior Initial Vital Signs Initial Vital Signs: Vital Signs Temperature 98.4 F 12/04/23 19:29 Pulse Rate 75 12/04/23 19:29 Respiratory Rate 17 12/04/23 19:29 Blood Pressure 126/71 12/04/23 19:29 Pulse Oximetry 99 12/04/23 19:29 Oxygen Delivery Method Room Air 12/04/23 19:29 Course Orders Ordered: ED Orders 12/04/23 19:18 Complete Blood Count AUTO DIFF Stat Type and Screen Stat Vital Signs Vital signs: Vital Signs - 8 hr 12/04/23 19:29 Temperature 98.4 F Pulse Rate 75 Respiratory Rate 17 Blood Pressure 126/71 Pulse Oximetry 99 Oxygen Delivery Method Room Air MDM - OB/Uterine Contractions Lab Data 12/04/23 19:18 Labs: Lab Results 12/04/23 Range/Units 19:18 WBC 9.0 (4.5-11.0) X10^3/uL RBC 4.77 (4.0-5.2) X10^6/uL Hgb 13.4 (12.0-16.0) g/dL Hct 39.8 (36-46) % MCV 83.5 (80-100) fL MCH 28.2 (26-34) PG MCHC 33.8 (30-36) % RDW 14.6 (11.6-14.8) % Plt Count 165 (150-400) X10^3/uL Neut % (Auto) 75.4 H (50-75) % Lymph % (Auto) 18.3 L (25-40) % [place] % (Auto) 5.4 (3-14) % Eos % (Auto) 0.4 L (2-4) % Baso % (Auto) 0.5 (0-2) % Neut # (Auto) 6800 (1563-1722) /uL Lymph # (Auto) 1600 (0352-4768) /uL [place] # (Auto) 500 (0-900) /uL Eos # (Auto) 0 (0-450) /uL Baso # (Auto) 0 (0-100) /uL MDM Narrative Medical decision making narrative: Well-appearing woman. No distress. H and H is stable. Vital signs are normal. Will check orthostatic vitals. Orthostatic vital signs are normal. Home discharge seems appropriate. Discharge Plan Departure Patient Disposition: Home Clinical Impression: Miscarriage Instructions: DI for Miscarriage Activity Restrictions/Additional Instructions: Your blood counts are stable. Your vital signs are reassuring. I think it is safe to use ibuprofen 800 mg every 8 hours to help with bleeding and pain. You could also take a 1000 mg of Tylenol every 6 hours as needed in addition. Follow-up with your obstetrical provider in the next 1 or 2 weeks. Follow-up right away for extreme lightheadedness, fainting, severe abdominal pain or high fever. Also follow up right away for severe brisk bleeding Prescriptions: No Action vit-ferrous sulfat-FA 27 mg iron- 0.8 mg tablet 1 tab PO DAILY cholecalciferol (vitamin D3) 125 mcg (5,000 unit) Tablet 125 mcg PO DAILY ondansetron 4 mg tablet,disintegrating 4 mg PO Q8H PRN (Reason: nausea and vomiting) Qty: 30 0RF Referrals: Keith Roa MD [Primary Care Provider] - Stand Alone Forms: Patient Portal/API, Work Release Note
== END 2023-12-04 20:23 | disposition home or self-care (01) ==
LOC: ED 20:09
PROVIDERS: Emergency Provider Family Medicine Addiction Medicine; PCP Internal Medicine
DX: O03.9 Complete or unspecified spontaneous abortion without complication (principal)
CPT/HCPCS: 36415; 85025; 86850; 86900; 86901; 99283

== ENCOUNTER → 2023-12-09 12:54 | Outpatient (CLI) | payer OTHER, MEDICAID, SELFPAY ==
--- NOTE | 2023-12-09 12:56 | DI.US.S_ITS ---
PROCEDURE: US PELVIC COMPLETE INDICATIONS: rule out retained products of conception TECHNIQUE: Real-time scanning was performed of the pelvic organs, with image documentation. Additional endovaginal scanning was necessary due to incomplete visualization of the adnexal and endometrial structures by transabdominal scanning. COMPARISON: [facility], US, US OB <= 14 WEEKS FETUS, 11/27/2023, 18:00. [facility], US, US OB <= 14 WEEKS FETUS, 12/03/2023, 3:56. FINDINGS: Uterus: Uterus is anteverted and mildly enlarged at 10.7 x 6.8 x 5.6 cm. The myometrium is homogeneous. The endometrium measures 19 mm combined thickness. Endometrium appears heterogeneous. No internal vascularity is seen to suggest retained products of conception. Ovaries: The right ovary measures 4.0 x 3.8 x 3.1 cm, with a calculated ovarian volume of 25 cc. The left ovary measures 2.2 x 1.5 x 1.6 cm, with a calculated ovarian volume of 2.8 cc. Ovaries are not well evaluated due to patient body habitus. No adnexal masses are seen. Other: No pathologic free abdominal or pelvic fluid. IMPRESSION: Endometrial echo complex measures 19 mm in thickness and is heterogeneous, possibly related to blood products in the endometrial canal versus endometrial thickening. No vascularity is seen to suggest retained products of conception. Approved by: Colin Dinh M.D. on 12/09/2023 at 14:44
== END ==
PROVIDERS: PCP Internal Medicine; Referring Provider Student in an Organized Health Care Education/Training Program; Visit Provider Student in an Organized Health Care Education/Training Program
DX: N92.6 Irregular menstruation, unspecified (principal)
CPT/HCPCS: 76830; 76856

== ENCOUNTER 2024-06-26 13:19 | Emergency (ER) | payer OTHER, MEDICAID, SELFPAY ==
[2024-06-26 13:23] VITALS: BP 141/100; PULSE 84; RESP 18; TEMP 36.3; O2SAT 99; BMI 52.9
--- NOTE | 2024-06-26 13:58 | ED.BACK ---
HPI - Back Pain/Injury General Chief Complaint: Back Pain/Injury Stated Complaint: kidney px, Covid+ Time Seen by Provider: 06/26/24 13:57 Source: patient Mode of arrival: Ambulatory Limitations: no limitations History of Present Illness HPI Narrative: 38-year-old female with recent COVID infection. Patient states symptoms started Wednesday. She has had some nasal congestion sore throat cough, headaches, myalgias, nausea and vomiting. Patient states possible fevers. Denies any chest pain or pressure no shortness of breath. She has had a cough but has been nonproductive. She has had some nausea and vomiting intermittently. She does have Zofran at home which she is used. She had a little bit diarrhea today. No black or bloody stools. No new swelling of extremities. Patient states no daily prescription medications. She states allergy to opioids causes nausea and vomiting no tobacco, occasional alcohol, no recreational drugs. Patient did 3 home COVID tests which were all positive. She is tried multiple [id number] medications finding Tylenol cough and cold to be the most helpful. She does request a prescription for Elizabeth Luna. Related Data Home Medications Medication Instructions Recorded Confirmed vitamin-ferrous sulfate 1 tab PO DAILY 10/18/23 01/06/24 27 mg iron-folic acid 0.8 mg tablet cholecalciferol (vitamin D3) 125 125 mcg PO DAILY 10/28/23 01/06/24 mcg (5,000 unit) tablet Previous Rx's Medication Instructions Recorded ondansetron 4 mg disintegrating 4 mg PO Q8H PRN nausea and 12/03/23 tablet vomiting #30 tabs benzonatate 200 mg capsule 200 mg PO TID PRN cough #14 caps 06/26/24 Allergies Allergy/AdvReac Type Severity Reaction Status Date / Time latex [LATEX] Allergy Mild Rash Verified 06/26/24 13:23 codeine [CODEINE] AdvReac Severe Nausea/ Verified 06/26/24 13:23 vomiting tramadol AdvReac Vomiting Verified 06/26/24 13:23 narcotics AdvReac Severe Vomiting Uncoded 02/28/24 14:28 Review of Systems Review of Systems ROS Unobtainable: All systems reviewed & are unremarkable except as noted in HPI and below Patient History Medical History Miscarriage Right knee pain Tendonitis (03/2017) Eczema (Unknown) Atrial fibrillation (~2000) Surgical History [place] teeth extracted Cyst (03/2017) Family History Brother Afib Father Age: 74 Afib Grandmother Cancer Social History marital status: unmarried,living together number of children: 0 household members: significant other lives independently: Yes caregiver/support person: No housing: apartment pets and animals: Yes (dog, but doesn't live w/ pt) education level: college (some college) occupational status: employed (childcare provider) current occupational exposures/hazards: Yes patrick/caodaism: Zoroastrianism special patrick needs: No travel history: over 6 months ago seatbelt use: sometimes water heater temp set < 120 deg: Yes working smoke detector in home: Yes fire extinguisher in home: No carbon monox detector in home: Yes firearms in home: No do you feel safe at home: Yes Smoking Status: Never smoker second hand exposure: Yes (s/o smokes, but not around pt) alcohol intake: former (rarely when not ) substance use type: does not use during the past year weight has: remained stable well-balanced diet: daily or most days daily servings fruits/ve-4 caffeine: Yes (occasional Starbucks drink) Type(s) of exercise: walking Smoking Status: Never smoker alcohol intake frequency: holidays/special occasions only Substance Use Type: does not use Exam Narrative Exam Narrative: GEN: well nourished, female, alert and oriented x 3, patient appears to be in mild distress. HEENT: Atraumatic, pupils are equal round reactive to light, extraocular movements are intact, mild nasal congestion, TMs are clear with no fluid, there is no conjunctival pallor. Throat is clear without any exudates, erythema, tonsillar enlargement or uvular deviation, patient is slightly hoarse. HEART: Regular rate and rhythm without murmur, clicks, rubs. LUNGS:Lungs clear to auscultation, no wheezes, rales, crackles, chest moves symmetrically ABD:bowel sounds normal, soft, non-tender, no guarding, rebound, rigidity, no masses noted, no hepatosplenomegaly :No CVA tenderness MSCL: Non-tender, no muscle atrophy, muscles strength 5/5 upper and lower extremities, full range of motion, normal gait NEURO:CN 2-12 intact, sensation normal Initial Vital Signs Initial Vital Signs: Vital Signs Temperature 97.3 F L 06/26/24 13:23 Pulse Rate 84 06/26/24 13:23 Respiratory Rate 18 06/26/24 13:23 Blood Pressure 141/100 H 06/26/24 13:23 Pulse Oximetry 99 06/26/24 13:23 Oxygen Delivery Method Room Air 06/26/24 13:23 Course Orders Ordered: ED Orders 06/26/24 14:17 COVID19 -Nasal RAPID Stat Vital Signs Vital signs: Vital Signs - 8 hr 06/26/24 13:23 06/26/24 15:14 Temperature 97.3 F L 98.5 F Pulse Rate 84 80 Respiratory Rate 18 16 Blood Pressure 141/100 H 131/90 Pulse Oximetry 99 100 Oxygen Delivery Method Room Air Room Air MDM - Back Pain/Injury Lab Data Labs: Lab Results 06/26/24 Range/Units 14:17 SARS-CoV-2 (PCR) Positive H (Negative) Urine Dip Bedside Urine Glucose Negative Bedside Urine Bilirubin - Negative Bedside Urine Ketone - Negative Urine Specific [place] 1.015 Bedside Urine Occult Blood - Negative Bedside Urine pH 6.0 Bedside Urine Protein - Negative Bedside Urine Urobilinogen - Negative Bedside Urine Nitrite - Negative Bedside Urine Leukocytes - Negative Esterase MDM Narrative Medical decision making narrative: 38-year-old female with symptoms consistent with COVID symptoms started on Wednesday. Patient did 3 home test. She presents with request for Tessalon Perles, he was found Tylenol cough and cold the most helpful. She has had some nausea and vomiting but has Zofran at home. poc urine is negative. COVID swab Discharge Plan Departure Patient Disposition: Home Clinical Impression: COVID-19 virus infection Instructions: DI for COVID-19 (Suspected or Confirmed ) Activity Restrictions/Additional Instructions: Follow up as needed. You can continue with [id number] medications. Prescription for Tessalon Perles was sent to [facility] in [place]. Please return for new chest pain or shortness of breath, lightheadedness or passing out, persistent vomiting, black or bloody stools or other new or concerning changes. Prescriptions: New benzonatate 200 mg capsule 200 mg PO TID PRN (Reason: cough) Qty: 14 0RF No Action vit-ferrous sulfat-FA 27 mg iron- 0.8 mg tablet 1 tab PO DAILY cholecalciferol (vitamin D3) 125 mcg (5,000 unit) Tablet 125 mcg PO DAILY ondansetron 4 mg tablet,disintegrating 4 mg PO Q8H PRN (Reason: nausea and vomiting) Qty: 30 0RF Referrals: Keith Roa MD [Primary Care Provider] - Stand Alone Forms: Patient Portal/API, Work Release Note
[2024-06-26 15:02] LABS: COVID19 -Nasal RAPID POSITIVE (Negative)
[2024-06-26 15:14] VITALS: BP 131/90; PULSE 80; RESP 16; TEMP 36.9; O2SAT 100
== END 2024-06-26 15:14 | disposition home or self-care (01) ==
PROVIDERS: Emergency Provider Emergency Medicine; PCP Internal Medicine
DX: U07.1 COVID-19 (principal)
CPT/HCPCS: 81003; 87635; 99282

== ENCOUNTER 2024-09-18 12:45 | Emergency (ER) | payer OTHER, MEDICAID, SELFPAY ==
[2024-09-18 12:50] VITALS: BP 141/98; PULSE 75; RESP 16; TEMP 36.2; O2SAT 100; BMI 53.1
--- NOTE | 2024-09-18 13:37 | ED_ITS ---
HPI - GI Bleed <Usha Koch PA-C - Last Filed: 09/18/24 14:05> General Chief complaint: GI Bleed Stated complaint: bloody stool Time Seen by Provider: 09/18/24 13:19 Source: patient Mode of arrival: Ambulatory History of Present Illness HPI Narrative: 39-year-old female past medical history constipation presents to the ED with a rectal bleeding. Patient states that she had a large bowel movement earlier today, strained quite a bit to pass the stool, wiped and noted a large amount of blood on toilet paper. Patient states she had 1 other episode of this about 1-2 weeks ago, also when she had a large bowel movement. No known history of hemorrhoids. However patient endorses long history of constipation. No fever, chills, chest pain, shortness of breath, abdominal pain, dysuria, lightheadedness, dizziness, syncope. Patient would also like to be tested for . Related Data Home Medications Medication Instructions Recorded Confirmed vitamin-ferrous sulfate 1 tab PO DAILY 10/18/23 01/06/24 27 mg iron-folic acid 0.8 mg tablet cholecalciferol (vitamin D3) 125 125 mcg PO DAILY 10/28/23 01/06/24 mcg (5,000 unit) tablet Previous Rx's Medication Instructions Recorded ondansetron 4 mg disintegrating 4 mg PO Q8H PRN nausea and 12/03/23 tablet vomiting #30 tabs benzonatate 200 mg capsule 200 mg PO TID PRN cough #14 caps 06/26/24 hydrocortisone acetate 25 mg 25 mg DC Q12H 6 days #12 ea 09/18/24 rectal suppository Allergies Allergy/AdvReac Type Severity Reaction Status Date / Time latex [LATEX] Allergy Mild Rash Verified 06/26/24 13:23 codeine [CODEINE] AdvReac Severe Nausea/ Verified 06/26/24 13:23 vomiting tramadol AdvReac Vomiting Verified 06/26/24 13:23 narcotics AdvReac Severe Vomiting Uncoded 02/28/24 14:28 Review of Systems <Usha Koch PA-C - Last Filed: 09/18/24 14:05> Constitutional Constitutional: Denies chills, Denies fatigue, Denies fever(s), Denies frequent falls, Denies lethargy and Denies weakness Eyes Eyes: Denies change in vision, Denies eye discharge, Denies irritation and Denies loss of vision ENT Ears, Nose, Mouth, and Throat: Denies change in voice, Denies dizziness, Denies neck pain, Denies sore throat and Denies throat swelling Cardiovascular Cardiovascular: Denies chest pain, Denies irregular heart rhythm, Denies lightheadedness, Denies palpitations, Denies dyspnea, Denies dyspnea on exertion and Denies orthopnea Respiratory Respiratory: Denies cough, Denies dyspnea, Denies dyspnea on exertion and Denies wheezing Gastrointestinal Gastrointestinal: Denies abdominal pain, Reports hematochezia, Denies change in bowel habits, Reports constipation, Denies diarrhea, Denies nausea and Denies vomiting Musculoskeletal Musculoskeletal: Denies neck pain and Denies numbness Integumentary/Breasts Skin/Breast: Denies pruritus, Denies erythema, Denies rash and Denies wounds Neurologic Neurologic: Denies behavioral changes, Denies confusion, Denies dizziness, Denies frequent falls, Denies loss of vision, Denies numbness and Denies weakness Psychiatric Psychiatric: Denies anxiety, Denies behavioral changes, Denies confusion, Denies depression, Denies homicidal ideation and Denies suicidal ideation Endocrine Endocrine: Denies fatigue, Denies flushing and Denies palpitations Hematologic/Lymphatic Hematologic/Lymphatic: Denies easy bruising Allergic/Immunologic Allergic/Immunologic: Denies urticaria, Denies throat swelling and Denies wheezing Patient History <Usha Koch PA-C - Last Filed: 09/18/24 14:05> Medical History Miscarriage Right knee pain Tendonitis (03/2017) Eczema (Unknown) Atrial fibrillation (~2000) Surgical History [place] teeth extracted Cyst (03/2017) Family History Brother Afib Father Age: 74 Afib Grandmother Cancer Social History marital status: unmarried,living together number of children: 0 household members: significant other lives independently: Yes caregiver/support person: No housing: apartment pets and animals: Yes (dog, but doesn't live w/ pt) education level: college (some college) occupational status: employed (childcare provider) current occupational exposures/hazards: Yes patrick/orthodoxy: Sabianism special patrick needs: No travel history: over 6 months ago seatbelt use: sometimes water heater temp set < 120 deg: Yes working smoke detector in home: Yes fire extinguisher in home: No carbon monox detector in home: Yes firearms in home: No do you feel safe at home: Yes Smoking Status: Never smoker second hand exposure: Yes (s/o smokes, but not around pt) alcohol intake: former (rarely when not ) substance use type: does not use during the past year weight has: remained stable well-balanced diet: daily or most days daily servings fruits/ve-4 caffeine: Yes (occasional Starbucks drink) Type(s) of exercise: walking Smoking Status: Never smoker alcohol intake frequency: holidays/special occasions only Substance Use Type: does not use Exam <Usha Koch PA-C - Last Filed: 09/18/24 14:05> Narrative Exam Narrative: Const General:?cooperative, healthy appearing and comfortable [facility] Head:?normal to inspection Ears:?hearing grossly normal bilaterally Nose:?external nose normal Face and sinus:?normal facial exam and sinuses nontender Mouth:?oral mucosae normal Throat:?posterior oropharynx normal Eyes General:?appearance normal, both eyes and all related structures Neck Neck:?normal visual inspection and no lymphadenopathy noted Resp Effort & Inspection:?normal respiratory effort Auscultation:?clear to auscultation bilaterally Cardio Rate:?regular rate Rhythm:?regular rhythm GI Rectal exam deferred Neuro General:?patient alert, patient awake and patient oriented x3 Initial Vital Signs Initial Vital Signs: Vital Signs Temperature 97.1 F L 09/18/24 12:50 Pulse Rate 75 09/18/24 12:50 Respiratory Rate 16 09/18/24 12:50 Blood Pressure 141/98 H 09/18/24 12:50 Pulse Oximetry 100 09/18/24 12:50 Oxygen Delivery Method Room Air 09/18/24 12:50 <Eve Gaitan DO - Last Filed: 09/19/24 19:47> Initial Vital Signs Initial Vital Signs: Vital Signs Temperature 97.1 F L 09/18/24 12:50 Pulse Rate 75 09/18/24 12:50 Respiratory Rate 16 09/18/24 12:50 Blood Pressure 141/98 H 09/18/24 12:50 Pulse Oximetry 100 09/18/24 12:50 Oxygen Delivery Method Room Air 09/18/24 12:50 Course <Usha Koch PA-C - Last Filed: 09/18/24 14:05> Orders Ordered: Discontinued Medications Ondansetron HCl (Ondansetron 4 Mg/2 Ml Inj) 4 mg IV NOW PRN PRN Reason: Nausea And Vomiting Pantoprazole Sodium (Pantoprazole 40 Mg Vial) 80 mg IV NOW ONE Stop: 09/18/24 12:58 Last Admin: 09/18/24 13:47 Dose: Not Given Documented By: DEBBY Vital Signs Vital signs: Vital Signs - 8 hr 09/18/24 12:50 Temperature 97.1 F L Pulse Rate 75 Respiratory Rate 16 Blood Pressure 141/98 H Pulse Oximetry 100 Oxygen Delivery Method Room Air <Eve Gaitan DO - Last Filed: 09/19/24 19:47> Orders Ordered: Discontinued Medications Ondansetron HCl (Ondansetron 4 Mg/2 Ml Inj) 4 mg IV NOW PRN PRN Reason: Nausea And Vomiting Pantoprazole Sodium (Pantoprazole 40 Mg Vial) 80 mg IV NOW ONE Stop: 09/18/24 12:58 Last Admin: 09/18/24 13:47 Dose: Not Given Documented By: DEBBY Vital Signs Vital signs: Vital Signs - 8 hr 09/18/24 12:50 Temperature 97.1 F L Pulse Rate 75 Respiratory Rate 16 Blood Pressure 141/98 H Pulse Oximetry 100 Oxygen Delivery Method Room Air MDM - GI Bleed <Usha Koch PA-C - Last Filed: 09/18/24 14:05> Lab Data Labs: Point of Care Testing Test Results Negative Urine Dip Bedside Urine Glucose Negative Bedside Urine Bilirubin - Negative Bedside Urine Ketone - Negative Urine Specific [place] 1.015 Bedside Urine Occult Blood - Negative Bedside Urine pH 6.0 Bedside Urine Protein - Negative Bedside Urine Urobilinogen - Negative Bedside Urine Nitrite - Negative Bedside Urine Leukocytes - Negative Esterase MDM Narrative Medical decision making narrative: 39-year-old female past medical history constipation presents to the ED with a rectal bleeding. Patient's symptoms are most consistent with constipation, hemorrhoids. Discussed regulating a good bowel regimen, preventing constipation as cornerstone of treatment. Recommend nightly MiraLax. Recommend increasing fiber and water intake. Prescribed rectal suppositories. Urine was negative for infection and . Recommend follow-up with PCP. ED return p recautions discussed with patient. Patient verbalized understanding. Medical records reviewed: Yes <Eve Gaitan DO - Last Filed: 09/19/24 19:47> Lab Data Labs: Point of Care Testing Test Results Negative Urine Dip Bedside Urine Glucose Negative Bedside Urine Bilirubin - Negative Bedside Urine Ketone - Negative Urine Specific [place] 1.015 Bedside Urine Occult Blood - Negative Bedside Urine pH 6.0 Bedside Urine Protein - Negative Bedside Urine Urobilinogen - Negative Bedside Urine Nitrite - Negative Bedside Urine Leukocytes - Negative Esterase Discharge Plan Departure Patient Disposition: Home Clinical Impression: Rectal bleed Instructions: DI for Constipation Activity Restrictions/Additional Instructions: You were evaluated in the ED today for a rectal bleed. It appears that your symptoms could be from constipation and internal hemorrhoids. It is important to regulate a good bowel regimen and avoid constipation to prevent further flare-ups. You may take MiraLax nightly. Please also increase your fiber and water intake daily. You have been prescribed hydrocortisone rectal suppositories for the next few days to calm down the inflammation. Your urine was negative for as well as infection. Please follow-up with your PCP as soon as possible for further evaluation. Return to the ED if you have worsening symptoms. Prescriptions: New hydrocortisone acetate 25 mg suppository 25 mg DC Q12H 6 Days Qty: 12 0RF No Action vit-ferrous sulfat-FA 27 mg iron- 0.8 mg tablet 1 tab PO DAILY cholecalciferol (vitamin D3) 125 mcg (5,000 unit) Tablet 125 mcg PO DAILY ondansetron 4 mg tablet,disintegrating 4 mg PO Q8H PRN (Reason: nausea and vomiting) Qty: 30 0RF benzonatate 200 mg capsule 200 mg PO TID PRN (Reason: cough) Qty: 14 0RF Referrals: Keith Roa MD [Primary Care Provider] - Stand Alone Forms: Patient Portal/API/Survey ED Sign-out <Eve Gaitan DO - Last Filed: 09/19/24 19:47> Cosign ED Attending Cosignature Attestation: I was immediately available in the department for consultation.
--- NOTE | 2024-09-18 14:18 | PC.NURSE ---
Patient evaluated, treated, and discharged by provider prior to nursing assessment.
== END 2024-09-18 14:17 | disposition home or self-care (01) ==
PROVIDERS: Emergency Provider Student in an Organized Health Care Education/Training Program; PCP Internal Medicine
DX: K62.5 Hemorrhage of anus and rectum (principal); K59.00 Constipation, unspecified
CPT/HCPCS: 81003; 81025; 99282

== ENCOUNTER 2024-12-28 19:45 | Emergency (ER) | payer OTHER, MEDICAID, SELFPAY ==
[2024-12-28] VITALS (7 sets, daily range): BP systolic 108–135; BP diastolic 63–81; PULSE 88–114; RESP 18–26; TEMP 38.1; O2SAT 96–99; BMI 54.9
[2024-12-28] MEDS: ACETAMINOPHEN 325 MG TABLET 975 MG PO (20:10)
--- NOTE | 2024-12-28 20:28 | PC.NURSE ---
Pts legs are now hurting.
[2024-12-28 21:02] LABS: Influenza A - CEPHEID Flu A POSITIVE (NEGATIVE); Influenza B - CEPHEID Flu B NEGATIVE (NEGATIVE); Respiratory Syncytial Virus Negative (Negative)
[2024-12-28 21:09] LABS: COVID-19 CEPHEID 4-PLEX PCR Negative (Negative)
--- NOTE | 2024-12-28 22:37 | ED.GENADULT ---
HPI - General Adult General Chief complaint: Upper Respiratory Symptoms Stated complaint: recently found out , flu Time Seen by Provider: 12/28/24 22:37 Source: patient Mode of arrival: Ambulatory History of Present Illness HPI narrative: 39-year-old positive test last night having fever, chills and lower abdominal cramping with no vaginal bleeding. A is a welcome surprise. She comes in today for further evaluation. She has been coughing, body aches and headaches. No dysuria Related Data Home Medications Medication Instructions Recorded Confirmed vitamin-ferrous sulfate 1 tab PO DAILY 10/18/23 01/06/24 27 mg iron-folic acid 0.8 mg tablet cholecalciferol (vitamin D3) 125 125 mcg PO DAILY 10/28/23 01/06/24 mcg (5,000 unit) tablet Previous Rx's Medication Instructions Recorded ondansetron 4 mg disintegrating 4 mg PO Q8H PRN nausea and 12/03/23 tablet vomiting #30 tabs benzonatate 200 mg capsule 200 mg PO TID PRN cough #14 caps 06/26/24 Allergies Allergy/AdvReac Type Severity Reaction Status Date / Time latex [LATEX] Allergy Mild Rash Verified 12/28/24 20:18 codeine [CODEINE] AdvReac Severe Nausea/ Verified 12/28/24 20:18 vomiting tramadol AdvReac Vomiting Verified 12/28/24 20:18 narcotics AdvReac Severe Vomiting Uncoded 12/28/24 20:18 Review of Systems Review of Systems Narrative: Pertinent positive and negative findings as per HPI Patient History Medical History Miscarriage Right knee pain Tendonitis (03/2017) Eczema (Unknown) Atrial fibrillation (~2000) Surgical History [place] teeth extracted Cyst (03/2017) Family History Brother Afib Father Age: 74 Afib Grandmother Cancer Social History marital status: unmarried,living together number of children: 0 household members: significant other lives independently: Yes caregiver/support person: No housing: apartment pets and animals: Yes (dog, but doesn't live w/ pt) education level: college (some college) occupational status: employed (childcare provider) current occupational exposures/hazards: Yes patrick/druze: Judaism special patrick needs: No travel history: over 6 months ago seatbelt use: sometimes water heater temp set < 120 deg: Yes working smoke detector in home: Yes fire extinguisher in home: No carbon monox detector in home: Yes firearms in home: No do you feel safe at home: Yes Smoking Status: Never smoker second hand exposure: Yes (s/o smokes, but not around pt) alcohol intake: former (rarely when not ) substance use type: does not use during the past year weight has: remained stable well-balanced diet: daily or most days daily servings fruits/ve-4 caffeine: Yes (occasional Starbucks drink) Type(s) of exercise: walking Smoking Status: Never smoker alcohol intake frequency: holidays/special occasions only Exam Initial Vital Signs Initial Vital Signs: Vital Signs Temperature 100.5 F H 12/28/24 19:56 Pulse Rate 114 H 12/28/24 19:56 Respiratory Rate 18 12/28/24 19:56 Blood Pressure 135/73 12/28/24 19:56 Pulse Oximetry 97 12/28/24 19:56 Oxygen Delivery Method Room Air 12/28/24 19:56 General: Alert, able to speak in full sentences, dry cough appears to feel unwell but she has not acutely toxic Respiratory: no wheezing, no accessory muscle use Cardiac: mild tachycardia no murmurs abdomen: mild tenderness in the left pelvis, no rebound or guarding Skin: No obvious rashes, warm and dry Neurologic: Grossly intact no obvious asymmetries or abnormalities Psych: appropriate insight and affect, cooperative Course Orders Ordered: ED Orders 12/28/24 20:14 Covid-19 + FLU A/B + RSV - PCR Stat 12/28/24 22:45 US OB <= 14 weeks fetus Stat 12/28/24 23:05 CBC Auto Diff [Complete Blood Count AUTO DIFF] Stat CMP [Comprehensive Metabolic Panel] Stat HCG Quantitative /Beta subunit Stat Discontinued Medications Acetaminophen (Acetaminophen 325 Mg Tablet) 975 mg PO NOW ONE Stop: 12/28/24 20:07 Last Admin: 12/28/24 20:10 Dose: 975 mg Documented By: ADRIAN Vital Signs Vital signs: Vital Signs - 8 hr 12/28/24 19:56 12/28/24 22:19 12/28/24 22:20 Temperature 100.5 F H Pulse Rate 114 H 96 H 94 H Respiratory Rate 18 26 H Blood Pressure 135/73 108/75 Pulse Oximetry 97 98 98 Oxygen Delivery Method Room Air Room Air 12/28/24 22:30 12/28/24 22:30 12/28/24 22:49 Temperature Pulse Rate 95 H 95 H Respiratory Rate Blood Pressure 134/77 Pulse Oximetry 96 97 Oxygen Delivery Method 12/28/24 22:49 12/28/24 23:00 12/28/24 23:00 Temperature Pulse Rate 88 Respiratory Rate Blood Pressure 123/68 130/81 Pulse Oximetry 98 Oxygen Delivery Method 12/28/24 23:30 12/28/24 23:30 12/29/24 00:00 Temperature Pulse Rate 95 H 91 H Respiratory Rate Blood Pressure 124/63 Pulse Oximetry 99 100 Oxygen Delivery Method 12/29/24 00:00 Temperature Pulse Rate Respiratory Rate Blood Pressure 132/91 H Pulse Oximetry Oxygen Delivery Method Medical Decision Making Lab Data 12/28/24 23:05 12/28/24 23:05 Labs: Lab Results 12/28/24 12/28/24 Range/Units 20:14 23:05 WBC 3.8 L (4.5-11.0) X10^3/uL RBC 4.55 (4.0-5.2) X10^6/uL Hgb 12.7 (12.0-16.0) g/dL Hct 38.1 (36-46) % MCV 83.7 (80-100) fL MCH 28.0 (26-34) PG MCHC 33.4 (30-36) % RDW 14.5 (11.6-14.8) % Plt Count 142 L (150-400) X10^3/uL Neut % (Auto) 78.6 H (50-75) % Lymph % (Auto) 9.2 L (25-40) % [place] % (Auto) 11.7 (3-14) % Eos % (Auto) 0.1 L (2-4) % Baso % (Auto) 0.4 (0-2) % Neut # (Auto) 3000 (9555-1370) /uL Lymph # (Auto) 300 L (3435-3048) /uL [place] # (Auto) 400 (0-900) /uL Eos # (Auto) 0 (0-450) /uL Baso # (Auto) 0 (0-100) /uL Sodium 135 L (137-145) mmol/L Potassium 3.9 (3.4-5.1) mmol/L Chloride 103 (98-107) mmol/L Carbon Dioxide 25 (22-32) mmol/L BUN 6 L (7-17) mg/dL Creatinine 0.73 (0.52-1.04) mg/dL Estimated GFR > 60 (>60) mL/min BUN/Creatinine Ratio 8.2 (6-22) Glucose 107 H (70-100) mg/dL Calcium 8.9 (8.4-10.2) mg/dL Total Bilirubin 0.3 (0.2-1.3) mg/dL AST 22 (14-36) IU/L ALT 17 (<35) IU/L Alkaline Phosphatase 53 (38-126) U/L Total Protein 7.1 (6.3-8.2) g/dL Albumin 3.8 (3.5-5.0) g/dL Globulin 3.3 (1.7-4.1) g/dL Albumin/Globulin Ratio 1.2 (1.0-2.8) HCG, Quant 1376.2 mIU/mL SARS-CoV-2 (PCR) Negative (Negative) Influenza A (RT-PCR) Flu a positive H (NEGATIVE) Influenza B (RT-PCR) Flu b negative (NEGATIVE) RSV (PCR) Negative (Negative) Imaging Data Ob ultrasound: Radiologist's Impression: PROCEDURE: US OB <= 14 WEEKS FETUS INDICATIONS: Left pelvic pain. + OUTSIDE/PRIOR DATING DATA: Last menstrual period (LMP): 11/24/2024. LMP-based estimated date of delivery (ROBERTA): 08/31/2025. First dating scan (date and location): 12/28/2024. Estimated date of delivery (ROBERTA) from first dating scan: 08/28/2025. TECHNIQUE: Real-time scanning was performed of the fetus and maternal pelvic organs, with image documentation. Endovaginal scanning was also performed to better visualize the fetus and maternal ovaries. COMPARISON: [facility], US, US OB <= 14 WEEKS FETUS, 12/03/2023, 3:56. FINDINGS: Embryo: A likely gestational sac is seen measuring 0.58 cm, consistent with 5 weeks and 2 days. No pole or yolk sac is identified. Heart rate: No pole or yolk sac Maternal organs: The ovaries are not seen. IMPRESSION: Likely gestational sac consistent with 5 weeks and 2 days. Recommend follow-up ultrasound in 10-14 days to assess viability. MDM Narrative Medical decision making narrative: CC: left pelvic cramping, positive test, fever and body aches Data collected from: patient Differential considered: influenza, sepsis, ectopic Exam documented above, pertinent findings include: patient is coughing, can cooperate completely with exam, mild tenderness in the left pelvis Lab Test results independently reviewed as above. Pertinent findings: no anemia, white count is slightly low at 3.8 patient is positive for influenza A hCG is positive at 1376 Discussion: 39-year-old woman testing positive for influenza a with typical symptoms. No sign of secondary infection. She is incidentally and quite pleased with this. She is having some cramping so ultrasound was done which does suggest intrauterine placement still too early for full confirmation pole in cardiac activity is not seen. This is consistent with dates and her quantitative hCG. Discussed following up with her primary care doctor and if she does have vaginal bleeding should have her hCG tested to confirm that her is still viable. We reviewed signs and symptoms and anticipated recovery for influenza. Work note is given Discharge Plan Departure Activity Restrictions/Additional Instructions: thank you for coming in today. It does look like you have very early that is developing in your uterus. It is a bit too early to see the pole or heartbeat. What we are seeing on the ultrasound, the hormone level at 1376 is all very consistent with a that is about 5-week-old which would give you a due date of August 28. I have given you a copy of the early ultrasound. If you are having continued bleeding or cramping, you can talk to your primary care doctor about repeating the hormone level in about 3 days. With a healthy , it should double in the meantime, it is okay to use ibuprofen and take plenty of time to sleep until your body has worked through the influenza a that you are currently testing positive for influenza has been particularly uncomfortable this year. Lasts 7-10 days and you will have high fevers, decreased appetite and body aches and misery. Please do try to keep yourself as hydrated as possible If you find that you are getting worse or develop any new symptoms, please feel free to return to the emergency department for further evaluation. Prescriptions: No Action vit-ferrous sulfat-FA 27 mg iron- 0.8 mg tablet 1 tab PO DAILY cholecalciferol (vitamin D3) 125 mcg (5,000 unit) Tablet 125 mcg PO DAILY ondansetron 4 mg tablet,disintegrating 4 mg PO Q8H PRN (Reason: nausea and vomiting) Qty: 30 0RF benzonatate 200 mg capsule 200 mg PO TID PRN (Reason: cough) Qty: 14 0RF Referrals: Keith Roa MD [Primary Care Provider] - Stand Alone Forms: Work Release Note
--- NOTE | 2024-12-28 22:45 | DI.US.S_ITS ---
PROCEDURE: US OB <= 14 WEEKS FETUS INDICATIONS: Left pelvic pain. + OUTSIDE/PRIOR DATING DATA: Last menstrual period (LMP): 11/24/2024. LMP-based estimated date of delivery (ROBERTA): 08/31/2025. First dating scan (date and location): 12/28/2024. Estimated date of delivery (ROBERTA) from first dating scan: 08/28/2025. TECHNIQUE: Real-time scanning was performed of the fetus and maternal pelvic organs, with image documentation. Endovaginal scanning was also performed to better visualize the fetus and maternal ovaries. COMPARISON: [facility], , OB <= 14 WEEKS FETUS, 12/03/2023, 3:56. FINDINGS: Embryo: A likely gestational sac is seen measuring 0.58 cm, consistent with 5 weeks and 2 days. No pole or yolk sac is identified. Heart rate: No pole or yolk sac Maternal organs: The ovaries are not seen. IMPRESSION: Likely gestational sac consistent with 5 weeks and 2 days. Recommend follow-up ultrasound in 10-14 days to assess viability. We strive to produce accurate, complete, and clear reports of imaging services. To assist us in improving patient care, this report was composed using standard report templates and voice recognition software. Therefore, it may contain abnormal punctuation, insertions and/or omissions. Occasional wrong-word or sound-alike substitutions may occur. Though we review the report and make efforts to correct it, we do recommend that the report be read carefully in proper context to recognize any text inaccuracies. Dictated by: Hugh Solano M.D. on 12/28/2024 at 23:51 Approved by: Hugh Solano M.D. on 12/28/2024 at 23:52
[2024-12-28 23:27] LABS: Add Manual Diff / Slide Review NO; Basophils Absolute Auto 0 /uL (0-100); Basophils Percent Auto 0.4 % (0-2); Eosinophils Absolute Auto 0 /uL (0-450); Eosinophils Percent Auto 0.1 % (2-4); Hematocrit 38.1 % (36-46); Hemoglobin 12.7 g/dL (12.0-16.0); Lymphocytes Absolute Auto 300 /uL (1100-4500); Lymphocytes Percent Auto 9.2 % (25-40); Mean Corpuscular HGB Conc 33.4 % (30-36); Mean Corpuscular Volume 83.7 fL (80-100); Monocytes Absolute Auto 400 /uL (0-900); Monocytes Percent Auto 11.7 % (3-14); Neutrophils Absolute Auto 3000 /uL (1500-7000); Neutrophils Percent Auto 78.6 % (50-75); Platelet Count 142 X10^3/uL (150-400); Red Blood Cell Count 4.55 X10^6/uL (4.0-5.2); Red Cell Distribution Width 14.5 % (11.6-14.8); White Blood Cell Count 3.8 X10^3/uL (4.5-11.0)
[2024-12-28 23:36] LABS: Alanine Aminotransferase 17 IU/L (<35); Albumin 3.8 g/dL (3.5-5.0); Albumin Globulin Ratio 1.2 (1.0-2.8); Alkaline Phosphatase 53 U/L (38-126); Aspartate Aminotransferase 22 IU/L (14-36); BUN Creatinine Ratio 8.2 (6-22); Bilirubin Total 0.3 mg/dL (0.2-1.3); Blood Urea Nitrogen 6 mg/dL (7-17); Calcium 8.9 mg/dL (8.4-10.2); Carbon Dioxide 25 mmol/L (22-32); Chloride 103 mmol/L (98-107); Estimated Glomerular Filt Rate > 60 mL/min (>60); Globulin 3.3 g/dL (1.7-4.1); Glucose 107 mg/dL (70-100); HEMOLYSIS < 15 (0-50); Potassium 3.9 mmol/L (3.4-5.1); Sodium 135 mmol/L (137-145); Total Protein 7.1 g/dL (6.3-8.2)
[2024-12-28 23:53] LABS: HCG Quantitative /Beta subunit 1376.2 mIU/mL
[2024-12-29] VITALS: BP 132/91; PULSE 91; O2SAT 100
[2024-12-29 01:18] VITALS: BP 135/92; PULSE 105; RESP 18; O2SAT 98
== END 2024-12-29 01:20 | disposition home or self-care (01) ==
PROVIDERS: Emergency Provider Emergency Medicine; PCP Internal Medicine
DX: J10.1 Influenza due to other identified influenza virus with other respiratory manifestations (principal); Z33.1 Pregnant state, incidental
CPT/HCPCS: 0241U; 76801; 80053; 84702; 85025; 99283; 99284

== ENCOUNTER → 2025-02-14 08:08 | Outpatient (CLI) | payer OTHER, SELFPAY ==
--- NOTE | 2025-02-14 08:09 | DI.US.S_ITS ---
PROCEDURE: US OB <= 14 WEEKS FETUS INDICATIONS: dating and viability OUTSIDE/PRIOR DATING DATA: Last menstrual period (LMP): 11/24/2024 LMP-based estimated date of delivery (ROBERTA): 08/31/2025 First dating scan (date and location): 12/28/2024 Estimated date of delivery (ROBERTA) from first dating scan: 08/28/2025. TECHNIQUE: Real-time scanning was performed of the fetus and maternal pelvic organs, with image documentation. Endovaginal scanning was also performed to better visualize the fetus and maternal ovaries. COMPARISON: [facility], OB <= 14 WEEKS FETUS, 12/28/2024, 23:14. FINDINGS: Embryo: Single intrauterine gestational sac is seen with fetus seen. Fetus in transverse presentation with head towards maternal right side. [place]-rump length measures 5.2 cm with estimated gestational age of 11 weeks, 6 days. Heart rate: 160 beats per minute. Maternal organs: Ovaries are not visualized. IMPRESSION: 1. Single live intrauterine gestation with fetus in transverse presentation. heart rate is 160 beats per minute. Estimated gestational age based on current study is 11 weeks, 6 days. This is consistent with appropriate growth. 2. Bilateral ovaries are not visualized. No gross adnexal mass. We strive to produce accurate, complete, and clear reports of imaging services. To assist us in improving patient care, this report was composed using standard report templates and voice recognition software. Therefore, it may contain abnormal punctuation, insertions and/or omissions. Occasional wrong-word or sound-alike substitutions may occur. Though we review the report and make efforts to correct it, we do recommend that the report be read carefully in proper context to recognize any text inaccuracies. Dictated by: Lv Guerrero M.D. on 02/14/2025 at 11:40 Approved by: Lv Guerrero M.D. on 02/14/2025 at 11:59
== END ==
PROVIDERS: PCP Internal Medicine; Referring Provider Student in an Organized Health Care Education/Training Program; Visit Provider Student in an Organized Health Care Education/Training Program
DX: O09.511 Supervision of elderly primigravida, first trimester (principal); O99.211 Obesity complicating pregnancy, first trimester; E66.01 Morbid (severe) obesity due to excess calories; Z3A.11 11 weeks gestation of pregnancy
CPT/HCPCS: 76801; 76817

== ENCOUNTER 2025-03-13 12:39 | Emergency (ER) | payer OTHER, SELFPAY ==
[2025-03-13 12:48] VITALS: BP 125/80; PULSE 88; RESP 13; TEMP 36.9; O2SAT 100; BMI 55.9
[2025-03-13 12:49] VITALS: O2SAT 100
[2025-03-13 12:50] VITALS: BP 125/80; O2SAT 100
--- NOTE | 2025-03-13 13:18 | ED.ABDPAIN ---
HPI - Abdominal Pain General Chief Complaint: Abdominal Pain Stated Complaint: Stomach pain , Leg pain 15 weeks Time Seen by Provider: 03/13/25 12:59 Source: patient Mode of arrival: Ambulatory History of Present Illness HPI narrative: Patient here with matthieu. Patient is 15 weeks . Patient is A1. Denies any vaginal bleeding or fluid leak. She states she coughed very hard yesterday evening around 8:00 p.m. during dinner and felt pain in her suprapubic area. No vomiting. Patient does have establish care. Is expected to deliver in August. Patient seen here last month and did have ultrasound done and confirmed . Patient denies any urinary complaints. Related Data Home Medications Medication Instructions Recorded Confirmed vitamin-ferrous sulfate 1 tab PO DAILY 10/18/23 01/06/24 27 mg iron-folic acid 0.8 mg tablet cholecalciferol (vitamin D3) 125 125 mcg PO DAILY 10/28/23 01/06/24 mcg (5,000 unit) tablet Previous Rx's Medication Instructions Recorded ondansetron 4 mg disintegrating 4 mg PO Q8H PRN nausea and 12/03/23 tablet vomiting #30 tabs benzonatate 200 mg capsule 200 mg PO TID PRN cough #14 caps 06/26/24 Allergies Allergy/AdvReac Type Severity Reaction Status Date / Time latex [LATEX] Allergy Mild Rash Verified 12/28/24 20:18 codeine [CODEINE] AdvReac Severe Nausea/ Verified 12/28/24 20:18 vomiting tramadol AdvReac Vomiting Verified 12/28/24 20:18 narcotics AdvReac Severe Vomiting Uncoded 12/28/24 20:18 Review of Systems Review of Systems Narrative: GENERAL: Negative chills, fatigue, malaise, fever, sweats. HEENT: Negative sinus pain, ear pain, sore throat RESPIRATORY: Negative dyspnea, cough CARDIOVASCULAR: Negative chest pain, palpitations GASTROINTESTINAL: Negative vomiting, nausea, positive abdominal pain : Negative dysuria, frequency, hematuria MUSCULOSKELETAL: Negative muscle or bony pain SKIN: Negative rash, skin lesions NEUROLOGIC: Negative weakness, numbness ROS Unobtainable: All systems reviewed & are unremarkable except as noted in HPI and below Patient History Medical History Miscarriage Right knee pain Tendonitis (03/2017) Eczema (Unknown) Atrial fibrillation (~2000) Surgical History [place] teeth extracted Cyst (03/2017) Family History Brother Afib Father Age: 74 Afib Grandmother Cancer Social History marital status: unmarried,living together number of children: 0 household members: significant other lives independently: Yes caregiver/support person: No housing: apartment pets and animals: Yes (dog, but doesn't live w/ pt) education level: college (some college) occupational status: employed (childcare provider) current occupational exposures/hazards: Yes patrick/baptist: Muslim special patrick needs: No travel history: over 6 months ago seatbelt use: sometimes water heater temp set < 120 deg: Yes working smoke detector in home: Yes fire extinguisher in home: No carbon monox detector in home: Yes firearms in home: No do you feel safe at home: Yes second hand exposure: Yes (s/o smokes, but not around pt) alcohol intake: former (rarely when not ) substance use type: does not use during the past year weight has: remained stable well-balanced diet: daily or most days daily servings fruits/ve-4 caffeine: Yes (occasional Starbucks drink) Type(s) of exercise: walking alcohol intake frequency: holidays/special occasions only Exam Narrative Exam Narrative: GENERAL: in no distress, not toxic not dyspneic HEAD: Normocephalic. EYES: Pupils equal round ENT: Mucous membranes moist. NECK: Trachea midline. CARDIOVASCULAR: Regular rate and rhythm RESPIRATORY: Clear to auscultation. Breath sounds equal bilaterally. No wheezes, rales, or rhonchi. GASTROINTESTINAL: Abdomen soft, mild suprapubic tenderness no peritoneal signs no McBurney point tenderness. No pain out of portion exam. Bowel sounds are present. EXTREMITIES: No gross deformities. BACK: No flank tenderness. NEURO: AOx4. Clear speech SKIN: Warm and dry PSYCH: Not anxious, is cooperative Initial Vital Signs Initial Vital Signs: Vital Signs Temperature 98.4 F 03/13/25 12:48 Pulse Rate 88 03/13/25 12:48 Respiratory Rate 13 03/13/25 12:48 Blood Pressure 125/80 03/13/25 12:48 Pulse Oximetry 100 03/13/25 12:48 Oxygen Delivery Method Room Air 03/13/25 12:48 Course Orders Ordered: ED Orders 03/13/25 12:58 CBC Auto Diff [Complete Blood Count AUTO DIFF] Stat CMP [Comprehensive Metabolic Panel] Stat 03/13/25 13:41 Urinalysis and Microscopic Stat Urine Culture Stat Discontinued Medications Acetaminophen (Acetaminophen 325 Mg Tablet) 975 mg PO NOW ONE Stop: 03/13/25 14:21 Last Admin: 03/13/25 14:37 Dose: 975 mg Documented By: YOGI Vital Signs Vital signs: Vital Signs - 8 hr 03/13/25 12:48 03/13/25 12:49 03/13/25 12:50 Temperature 98.4 F Pulse Rate 88 Respiratory Rate 13 Blood Pressure 125/80 125/80 Pulse Oximetry 100 100 Oxygen Delivery Method Room Air 03/13/25 12:50 Temperature Pulse Rate Respiratory Rate Blood Pressure Pulse Oximetry 100 Oxygen Delivery Method MDM - Abdominal Pain Lab Data 03/13/25 12:58 03/13/25 12:58 Labs: Lab Results 03/13/25 03/13/25 Range/Units 12:58 13:41 WBC 5.4 (4.5-11.0) X10^3/uL RBC 4.59 (4.0-5.2) X10^6/uL Hgb 13.3 (12.0-16.0) g/dL Hct 38.9 (36-46) % MCV 84.7 (80-100) fL MCH 28.9 (26-34) PG MCHC 34.1 (30-36) % RDW 14.9 H (11.6-14.8) % Plt Count 161 (150-400) X10^3/uL Neut % (Auto) 73.7 (50-75) % Lymph % (Auto) 20.3 L (25-40) % [place] % (Auto) 5.1 (3-14) % Eos % (Auto) 0.5 L (2-4) % Baso % (Auto) 0.4 (0-2) % Neut # (Auto) 4000 (7379-7025) /uL Lymph # (Auto) 1100 (7614-4855) /uL [place] # (Auto) 300 (0-900) /uL Eos # (Auto) 0 (0-450) /uL Baso # (Auto) 0 (0-100) /uL Sodium 136 L (137-145) mmol/L Potassium 4.0 (3.4-5.1) mmol/L Chloride 105 (98-107) mmol/L Carbon Dioxide 24 (22-32) mmol/L BUN 12 (7-17) mg/dL Creatinine 0.57 (0.52-1.04) mg/dL Estimated GFR > 60 (>60) mL/min BUN/Creatinine Ratio 21.1 (6-22) Glucose 84 (70-99) mg/dL Calcium 9.4 (8.4-10.2) mg/dL Total Bilirubin 0.4 (0.2-1.3) mg/dL AST 27 (14-36) IU/L ALT 15 (<35) IU/L Alkaline Phosphatase 55 (38-126) U/L Total Protein 7.3 (6.3-8.2) g/dL Albumin 4.0 (3.5-5.0) g/dL Globulin 3.3 (1.7-4.1) g/dL Albumin/Globulin Ratio 1.2 (1.0-2.8) Urine Color Yellow Urine Appearance Sl cloudy Urine pH 6.0 (4.5-8.0) Ur Specific [place] 1.025 (1.000-1.035) Urine Protein Negative (Negative) Urine Glucose (UA) Negative (Negative) g/dL Urine Ketones Negative (NEGATIVE) Urine Occult Blood Negative (Negative) Urine Nitrate Negative (Negative) Urine Bilirubin Negative (NEGATIVE) Urine Urobilinogen 0.2 (0.2) E.U./dL Ur Leukocyte Esterase Trace H (NEGATIVE) Urine RBC None seen (0-5/HPF) Urine WBC 1-5/hpf (0-5/HPF) Ur Squamous Epith Cells 0-1 /hpf (0-5/HPF) Urine Bacteria Moderate (10-30) H (None) Ur Culture Indicated? Specimen cultured Vol Urine Centrifuged 10ml (spun) MDM Narrative Medical decision making narrative: Patient here with fiancee. Patient is 15 weeks . Patient is A1. Denies any vaginal bleeding or fluid leak. She states she coughed very hard yesterday evening around 8:00 p.m. during dinner and felt pain in her suprapubic area. No vomiting. Patient does have establish care. Is expected to deliver in August. Patient seen here last month and did have ultrasound done and confirmed . Patient denies any urinary complaints. After history and exam, CBC CMP urinalysis heart tones. No ultrasound at this time. Given mechanism of injury likely muscle strain. [facility] Medical records reviewed: Ultrasound February 14, 2025 Differential considered: Includes but not limited to muscular strain UTI appendicitis Lab Test results independently reviewed as above. Pertinent findings: heart tones 150, urinalysis trace leukocyte esterase positive bacteria, WBC 5.4 hemoglobin 13.3 AST 27 ALT 15 Consultations: None indicated at this time Re-evaluations: 2:26 p.m.. Updated patient and fiancee results. Pain is likely from hard coughing yesterday. She does not want antibiotics for results of the urine, she had similar findings with her information delivery analyst recently and did not require antibiotics as she had no symptoms. She has no urinary complaints Return precautions reviewed. She desires discharge home. Discussion: Appropriate for discharge home. Exam is reassuring. Return precautions reviewed with patient and fiancee. They desire discharge home. Diagnosis: Suprapubic pain/muscle strain Discharge Plan Departure Patient Disposition: Home Clinical Impression: Abdominal pain, suprapubic Instructions: DI for Abdominal Pain-Adult Activity Restrictions/Additional Instructions: Your exam and laboratory studies are reassuring at this time. Please do see your OBGYN doctor this week for re-evaluation. Keep well hydrated. Return if worse if any questions or concerns. May continue Tylenol for pain. It is likely you strain the muscles when you coughed yesterday. Return if worse if any questions or concerns Prescriptions: No Action vit-ferrous sulfat-FA 27 mg iron- 0.8 mg tablet 1 tab PO DAILY cholecalciferol (vitamin D3) 125 mcg (5,000 unit) Tablet 125 mcg PO DAILY ondansetron 4 mg tablet,disintegrating 4 mg PO Q8H PRN (Reason: nausea and vomiting) Qty: 30 0RF benzonatate 200 mg capsule 200 mg PO TID PRN (Reason: cough) Qty: 14 0RF Referrals: Keith Roa MD [Primary Care Provider] - Stand Alone Forms: Patient Portal/API/Survey, Work Release Note
[2025-03-13 13:36] LABS: Add Manual Diff / Slide Review NO; Basophils Absolute Auto 0 /uL (0-100); Basophils Percent Auto 0.4 % (0-2); Eosinophils Absolute Auto 0 /uL (0-450); Eosinophils Percent Auto 0.5 % (2-4); Hematocrit 38.9 % (36-46); Hemoglobin 13.3 g/dL (12.0-16.0); Lymphocytes Absolute Auto 1100 /uL (1100-4500); Lymphocytes Percent Auto 20.3 % (25-40); Mean Corpuscular HGB Conc 34.1 % (30-36); Mean Corpuscular Hemoglobin 28.9 PG (26-34); Mean Corpuscular Volume 84.7 fL (80-100); Monocytes Absolute Auto 300 /uL (0-900); Monocytes Percent Auto 5.1 % (3-14); Neutrophils Absolute Auto 4000 /uL (1500-7000); Neutrophils Percent Auto 73.7 % (50-75); Platelet Count 161 X10^3/uL (150-400); Red Blood Cell Count 4.59 X10^6/uL (4.0-5.2); Red Cell Distribution Width 14.9 % (11.6-14.8); White Blood Cell Count 5.4 X10^3/uL (4.5-11.0)
[2025-03-13 13:41] LABS: Alanine Aminotransferase 15 IU/L (<35); Albumin Globulin Ratio 1.2 (1.0-2.8); Alkaline Phosphatase 55 U/L (38-126); Aspartate Aminotransferase 27 IU/L (14-36); BUN Creatinine Ratio 21.1 (6-22); Bilirubin Total 0.4 mg/dL (0.2-1.3); Blood Urea Nitrogen 12 mg/dL (7-17); Calcium 9.4 mg/dL (8.4-10.2); Carbon Dioxide 24 mmol/L (22-32); Chloride 105 mmol/L (98-107); Estimated Glomerular Filt Rate > 60 mL/min (>60); Globulin 3.3 g/dL (1.7-4.1); Glucose 84 mg/dL (70-99); HEMOLYSIS < 15 (0-50); Sodium 136 mmol/L (137-145); Total Protein 7.3 g/dL (6.3-8.2)
[2025-03-13 13:53] LABS: Appearance Urine UA SL CLOUDY; Bilirubin Urine UA NEGATIVE (NEGATIVE); Color Urine UA YELLOW; Glucose Urine UA NEGATIVE (Negative); Ketones Urine UA NEGATIVE (NEGATIVE); Leukocyte Esterase Urine UA TRACE (NEGATIVE); Nitrite Urine UA NEGATIVE (Negative); Occult Blood Urine UA NEGATIVE (Negative); Protein Urine UA NEGATIVE (Negative); Specific Gravity Urine UA 1.025 (1.000-1.035); Urobilinogen Urine UA 0.2 E.U./dL (0.2)
[2025-03-13 13:56] LABS: Urine Volume 10mL (spun)
[2025-03-13 13:57] LABS: Bacteria Urine Moderate (10-30); Culture Indicated Urine Specimen Cultured; RBC Urine None Seen (0-5/HPF); Squamous Epithelial Cell Urine 0-1 /HPF (0-5/HPF); WBC Urine 1-5/HPF (0-5/HPF)
[2025-03-13] MEDS: ACETAMINOPHEN 325 MG TABLET 975 MG PO (14:37)
== END 2025-03-13 14:40 | disposition home or self-care (01) ==
PROVIDERS: Emergency Provider Emergency Medicine; PCP Internal Medicine
DX: O26.892 Other specified pregnancy related conditions, second trimester (principal); R10.2 Pelvic and perineal pain; Z3A.15 15 weeks gestation of pregnancy
CPT/HCPCS: 80053; 81001; 85025; 87086; 99283